=== PATIENT | male | born 1955 | race Caucasian/White ===

== ENCOUNTER 2019-07-10 16:35 | Outpatient (CLI) | payer OTHER, SELFPAY ==
--- NOTE | 2019-07-10 | USCV_ITS ---
Micah Parminder Age: 63 Gender: M : 1955 Exam Date: 07/10/2019 17:03 Ordering Phys: Nikolay Briggs DO Technologist: Exam Location[place] [facility] [place]: Right leg pain RIGHT LEFT Brachial mmHg Brachial 137.00 mmHg Pressure (mmHg) Waveform Pressure (mmHg) Waveform 157.00 Pre-Exercise Toe Pressure 1.15 Pre-Exercise Toe/Brachial Index FINDINGS Supernormal resting ABIs bilaterally . possible occlusion of the dorsalis pedis arteries bilaterally Normal resting TBI on the right side No flow was detected in the left first digit CONCLUSIONS Possible occlusion of the dorsalis pedis arteries bilaterally Possible occlusion of the digital artery to the left big toe. Possibly no significant obstructive disease in the popliteal or peroneal trunk arteries bilaterally Dr Cassandra An MD [facility] (Electronically Signed) Final Date: 10 July 2019 20:36 S
== END 2019-07-10 16:36 | disposition home or self-care (01) ==
PROVIDERS: Family Provider Emergency Medicine Emergency Medical Services; PCP Emergency Medicine Emergency Medical Services; Visit Provider Emergency Medicine Emergency Medical Services
DX: M79.604 Pain in right leg (principal)
CPT/HCPCS: 93922

== ENCOUNTER 2019-09-01 00:40 | Emergency (ER) | payer OTHER, SELFPAY ==
[2019-09-01 00:43] VITALS: BP 186/83; PULSE 69; RESP 16; TEMP 37.1; O2SAT 96; BMI 27.4
--- NOTE | 2019-09-01 00:44 | PC.NURSE ---
ems states they were called to patient residence for rib pain and while on scene patient started hallucinating seeing dogs. Patient has bilateral black eyes, bruising to chin, neck, left hand, and bruising to the nose. Patient had a fall last night 08/30/2019. Patient states he was walking outside from his car and fell down.
--- NOTE | 2019-09-01 00:59 | PC.NURSE ---
Patient states that he had snakes and dogs in his house. Patient states to nurse when asked if he wanted to harm anyone my daughter and sister because they wouldn't get off my back . Patient states in the ER he no longer wants to hurt them because they are not here in the ER with the patient.
[2019-09-01 01:01] VITALS: BP 175/71; PULSE 66; RESP 14; O2SAT 97
--- NOTE | 2019-09-01 01:14 | XRR_ITS ---
PROCEDURE INFORMATION: Exam: XR Chest, 1 View Exam date and time: 09/01/2019 1:39 AM Age: 63 years old Clinical indication: Injury or trauma; Fall; Initial encounter; Blunt trauma (contusions or hematomas); Prior surgery; Surgery date: 6+ months; Surgery type: Stents, aortic arch bypass, ; patient HX: HX copd TECHNIQUE: Imaging protocol: XR of the chest Views: 1 view. COMPARISON: CR Chest 1 [place] [id number] 07/15/2017 12:01 PM FINDINGS: Lungs: No CHF/pulmonary edema. Visible lungs appear essentially clear. Pleural space: No visible pneumothorax. No definite pleural fluid. Heart/Mediastinum: Heart size is within normal limits. Bones/joints: Prior median sternotomy. Several subtle left lateral rib deformities, not significantly changed, apparently representing old/healed fractures. XR/XR chest 1V portable [id number] IMPRESSION: 1. No CHF or pneumonia. 2. Other findings discussed above.
--- NOTE | 2019-09-01 01:14 | CTR_ITS ---
PROCEDURE INFORMATION: Exam: CT Maxillofacial Without Contrast Exam date and time: 09/01/2019 1:17 AM Age: 63 years old Clinical indication: Injury or trauma; Fall; Initial encounter; Blunt trauma (contusions or hematomas); Nose and orbit/periorbital and jaw; Bilateral TECHNIQUE: Imaging protocol: Computed tomography images of the face without contrast. Total DLP: 763.33 mGy-cm Radiation optimization: All CT scans at this facility use at least one of these dose optimization techniques: automated exposure control; mA and/or kV adjustment per patient size (includes targeted exams where dose is matched to clinical indication); or iterative reconstruction. COMPARISON: No relevant prior studies available. FINDINGS: Orbits: Orbital contents appear intact/unremarkable. Bones/joints: No definite evidence of acute facial bone/orbital fracture. No evidence for mandibular fracture. The temporomandibular joints appear in satisfactory position at this time. Sinuses: Included paranasal sinuses appear essentially clear. Soft tissues: Rounded 2 cm density seen in the soft tissues, just inferior to the symphysis of the mandible. Etiology and significance uncertain. Soft tissue hematoma is possible given the history of trauma, other nodule or neoplasm not excluded. Please correlate clinically. CT/CT facial bones wo con* [id number] IMPRESSION: 1. No definite acute facial bone/mandibular fracture by CT. 2. Rounded 2 cm density seen in the soft tissues, just inferior to the symphysis of the mandible. See above discussion. 3. Other findings discussed above. Radiation Dose CTDIVOL = (mGy): DLP = 763.33 (mGy-cm)
--- NOTE | 2019-09-01 01:14 | CTR_ITS ---
PROCEDURE INFORMATION: Exam: CT Cervical Spine Without Contrast Exam date and time: 09/01/2019 1:17 AM Age: 63 years old Clinical indication: Injury or trauma; Fall; Initial encounter; Blunt trauma TECHNIQUE: Imaging protocol: Computed tomography images of the cervical spine without contrast. Total DLP: 671.06 mGy-cm Radiation optimization: All CT scans at this facility use at least one of these dose optimization techniques: automated exposure control; mA and/or kV adjustment per patient size (includes targeted exams where dose is matched to clinical indication); or iterative reconstruction. COMPARISON: No relevant prior studies available. FINDINGS: Vertebrae: On axial CT images, no definite acute fracture is visible. Sagittal and coronal reconstructions show no fracture or subluxation. Mild to moderate degenerative disc changes and facet joint arthritis at multiple levels. Discs/Spinal canal/Neural foramina: Suspect moderate bulging/protruding discs from C3-C4, through C6-C7. MRI could be more specific/sensitive if clinically indicated. Lungs: No significant acute abnormality in the upper lungs. CT/CT cervical spin wo con* [id number] IMPRESSION: 1. No definite acute fracture or subluxation by CT. 2. Other findings discussed above. Radiation Dose CTDIVOL = (mGy): DLP = 671.06 (mGy-cm)
--- NOTE | 2019-09-01 01:14 | CTR_ITS ---
PROCEDURE INFORMATION: Exam: CT Head Without Contrast Exam date and time: 09/01/2019 1:17 AM Age: 63 years old Clinical indication: Injury or trauma; Fall; Initial encounter; Blunt trauma (contusions or hematomas); Without loss of consciousness TECHNIQUE: Imaging protocol: Computed tomography of the head without contrast. Total DLP: 861.77 mGy-cm Radiation optimization: All CT scans at this facility use at least one of these dose optimization techniques: automated exposure control; mA and/or kV adjustment per patient size (includes targeted exams where dose is matched to clinical indication); or iterative reconstruction. COMPARISON: CT head wo con* [id number] 07/15/2017 12:51 PM FINDINGS: Brain: Hypoattenuation seen in the deep white matter of the left cerebral hemisphere compatible with deep white matter microvascular disease. There is mild diffuse cerebral atrophy. There is a broad area of hypoattenuation and encephalomalacia seen within the right frontal, parietal and temporal lobes compatible with a old infarction. Superimposed over the chronic findings, there is irregular hyperdense material compatible with acute intraparenchymal hemorrhage. Ventricles: Normal. No ventriculomegaly. Bones/joints: Unremarkable. No acute fracture. Sinuses: There is mild mucosal thickening seen within the ethmoidal and sphenoidal sinuses bilaterally. Mastoid air cells: Visualized mastoid air cells are well aerated. Soft tissues: Unremarkable. CT/CT head wo con* [id number] IMPRESSION: There is an acute intraparenchymal hemorrhage seen within the broad area of encephalomalacia of the right frontal, parietal and temporal lobe. Radiation Dose CTDIVOL = (mGy): DLP = 861.77 (mGy-cm)
--- NOTE | 2019-09-01 01:16 | ECG_ITS ---
Measurements Intervals [place] Rate: 72 P: 52 ND: 186 QRS: -14 QRSD: 106 T: 146 QT: 427 QTc: 470 SINUS RHYTHM POSSIBLE LEFT ATRIAL ENLARGEMENT PROBABLE LATERAL MYOCARDIAL INFARCTION , OF INDETERMINATE AGE MODERATE T-WAVE ABNORMALITY, CONSIDER ANTERIOR ISCHEMIA Compared to ECG 07/15/2017 19:16:12 T-wave abnormality now present Myocardial infarct finding still present Possible ischemia still present Electronically Signed On 09-01-2019 14:00:17 CDT by Disha Powers M.D. [id number]
[2019-09-01 01:41] LABS: Basophils % 0.2 %; Eosinophils % 0.2 %; Hematocrit 45.6 % (42.0-52.0); Hemoglobin 15.5 g/dL (11.7-16.6); Lymphocytes % 10.9 %; Mean Corpuscular Hemoglobin 32.8 pg (28.0-34.0); Mean Corpuscular Volume 96.6 fL (80-94); Mean Platelet Volume 9.9 fL (7.4-10.4); Monocytes # 0.7 10^3/uL (0.2-0.9); Monocytes % 7.7 %; Neutrophils # 7.4 10^3/uL (1.8-7.7); Neutrophils % 80.5 %; Nucleated Red Blood Cells % 0 %; Platelet Count 162 10^3/cmm (130-400); Red Blood Count 4.72 10^6/uL (4.1-5.3); Red Cell Distribution Width 13.1 % (12.1-15.1); White Blood Count 9.2 10^3/uL (4.0-10.0)
--- NOTE | 2019-09-01 01:56 | W.ED.AMS ---
HPI - Altered Mental Status General: Chief Complaint: Altered Mental Status Stated Complaint: fall/hallucinations Time Seen by Provider: 09/01/19 00:53 History of Present Illness: HPI narrative: Mr. August is a 63-year-old gentleman who evidently fell, striking his face on asphalt either late night or early Tuesday morning. An ambulance had been called earlier, but the patient refused to go to the hospital. Earlier this evening, the patient began to have some visual hallucinations, seeing snakes and puppies in his home. This was concerning, so EMS was called again. Currently he reports no headache, no other symptoms. He was agitated at his family earlier, but his agitation has improved. He has not had active hallucinations here. MD complaint: altered mental status and confusion Onset (ago): day(s) Timing confirmed by: family member Severity: moderate Context: trauma Associated symptoms: Reports auditory hallucinations and visual hallucinations; Deny homicidal ideation or suicidal ideation Review of Systems Const: Denies: fever or chills Eyes: Denies: change in vision or blurry vision ENMT: Reports: facial/sinus pain; Denies: painful swallowing, swelling of lips/tongue, bleeding gums, dental pain, Change in hearing, nose bleeds or post nasal drip Card: Denies: chest pain, palpitations, irregular heart rhythm or edema Resp: Denies: shortness of breath, productive cough, non-productive cough or wheezing GI: Denies: abdominal pain, nausea or vomiting : Denies: difficulty urinating, painful urination or blood in urine Musc: Denies: neck pain, back pain, redness or joint warmth Skin/Breast: Denies: rash, itching or redness Neuro: Reports: confusion; Denies: headache, dizziness, vertigo or seizure-like activity Psych: Reports: visual hallucinations and auditory hallucinations; Denies: suicidal ideation or homicidal ideation PFS ED PFSH: Social History Smoking and tobacco status: current some day smoker Physical Exam Const: GENERAL APPEARANCE: well developed ORIENTATION/CONSCIOUSNESS: Yes oriented to person, Yes oriented to place and Yes oriented to time HENMT: COMMON NORMALS: normocephalic, external ears normal and external nose normal HEAD & SCALP: normocephalic FACE & SINUS: other (There is ecchymosis of the chin.) NOSE: external nose normal and no nasal discharge EXTERNAL EAR: Yes external ears normal MOUTH: tongue normal Eye: COMMON NORMALS: PERRL, EOMs intact bilaterally and conjunctivae normal CONJUNCTIVA: Yes conjunctivae normal PUPIL: Yes PERRL OTHER: Bilateral periorbital ecchymosis is noted. There is mild swelling. Neck/C-Spine: GENERAL: No tracheal deviation CERVICAL SPINE: Yes normal cervical lordosis and No cervical spine tenderness Chest: COMMONS NORMALS: inspection of chest normal CHEST: No tenderness Resp: COMMON NORMALS: clear to auscultation bilaterally EFFORT & INSPECTION: No tachypneic, No respiratory distress, No retractions, No uses accessory muscles and No tracheal deviation AUSCULTATION: clear to auscultation bilaterally, no rhonchi, no wheezes and lung sounds not diminished Cardio: COMMON NORMALS: regular rate and regular rhythm RATE: regular rate RHYTHM: regular rhythm HEART SOUNDS: no murmurs PERIPHERAL PULSES: radial pulses present GI: INSPECTION: No abdominal distension AUSCULTATION: No hyperactive bowel sounds and No hypoactive bowel sounds PALPATION: No guarding and No rigid PERCUSSION: no dullness to percussion and no tympanic to percussion : COMMON NORMALS: Yes no CVA tenderness BLADDER/KIDNEY EXAM: Yes no CVA tenderness Back/Pelvis: COMMON NORMALS: no CVA tenderness Neuro: SENSORIUM/ORIENTATION: Yes oriented to person, Yes oriented to place and Yes oriented to time SPEECH: speech normal SENSORY EXAM: Yes extremities (Decreased sensation, which is chronic to the left upper extremity) MOTOR EXAM: other (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 He is awake and talking. He is alert and oriented. He was having some visual and auditory hallucinations at home, which are new symptoms for him. These seem to have improved a bit. He has periorbital ecchymosis, as well as ecchymosis to the chin. He is on Plavix, but no anticoagulants. His head CT shows intraparenchymal hemorrhage seen within the area of encephalomalacia from previous stroke in the right MCA distribution. No neurosurgery available here. We spoke with ER/trauma at [facility] in [place], and they are willing to take in transfer. He will go by ground. Lab Data: Labs: Lab Results 09/01/19 09/01/19 Range/Units 01:35 01:35 WBC 9.2 (4.0-10.0) 10^3/ uL RBC 4.72 (4.1-5.3) 10^6/u L Hgb 15.5 (11.7-16.6) g/dL Hct 45.6 (42.0-52.0) % MCV 96.6 H (80-94) fL MCH 32.8 (28.0-34.0) pg MCHC 34.0 (30.0-36.0) g/dL RDW 13.1 (12.1-15.1) % Plt Count 162 (130-400) 10^3/c mm MPV 9.9 (7.4-10.4) fL Neut % (Auto) 80.5 % Lymph % (Auto) 10.9 % [place] % (Auto) 7.7 % Eos % (Auto) 0.2 % Baso % (Auto) 0.2 % Neut # (Auto) 7.4 (1.8-7.7) 10^3/u L Lymph # (Auto) 1.0 (0.8-4.8) 10^3/u L [place] # (Auto) 0.7 (0.2-0.9) 10^3/u L Eos # (Auto) 0.0 (0.0-0.8) 10^3/u L Baso # (Auto) 0.0 (0.0-0.1) 10^3/u L Nucleated RBC % (a uto) 0 % Nucleated RBCs # 0.0 /100WBC Sodium 134 L (136-145) mmol/L Potassium 4.2 (3.5-5.1) mmol/L Chloride 97 L (98-107) mmol/L Carbon Dioxide 20 L (22-29) mmol/L Anion Gap 21.2 H (5-19) BUN 13 (8-23) mg/dL Creatinine 1.0 (0.7-1.2) mg/dL GFR Calculation 75.2 L (90-130) mL/min Glucose 114 (65-115) mg/dL Calculated Osmolal ity 275 L (285-295) mOsm/k g Calcium 9.9 (8.5-10.5) mg/dL Magnesium 2.0 (1.7-2.3) mg/dL Total Bilirubin 1.8 H (0.15-1.2) mg/dL AST 26 (0-40) U/L ALT 9 (0-41) U/L Alkaline Phosphata se 129 (40-130) IU/L Creatine Kinase 1136 H* (39-308) U/L Total Protein 7.8 (6.6-8.7) g/dL Albumin 4.2 (3.5-5.2) g/dL Globulin 3.6 (1.3-4.6) g/dL Salicylates < 0.3 L (3-10) mg/dL Acetaminophen < 5.0 L (10-30) ug/mL Ethyl Alcohol < 10 (0-10) mg/dL Discharge Plan Discharge Patient Disposition: Xfer Other Clinical Impression: Intracranial hemorrhage Condition: Stable Referrals: Nikolay Briggs DO [Primary Care Provider] - Coding Level of Care Code ED Cluster Bore Operator for Chg Fwd Exam Comprehensive
[2019-09-01 01:59] LABS: Alanine Aminotransferase 9 U/L (0-41); Albumin Level 4.2 g/dL (3.5-5.2); Alkaline Phosphatase 129 IU/L (40-130); Anion Gap 21.2 (5-19); Blood Urea Nitrogen 13 mg/dL (8-23); Calcium 9.9 mg/dL (8.5-10.5); Carbon Dioxide 20 mmol/L (22-29); Chloride 97 mmol/L (98-107); Globulin 3.6 g/dL (1.3-4.6); Glomerular Filtration Rate 75.2 mL/min (90-130); Glucose 114 mg/dL (65-115); Osmolality Calculated 275 mOsm/kg (285-295); Potassium 4.2 mmol/L (3.5-5.1); Sodium 134 mmol/L (136-145); Total Bilirubin 1.8 mg/dL (0.15-1.2); Total Protein 7.8 g/dL (6.6-8.7)
[2019-09-01 02:01] VITALS: BP 182/80; PULSE 64; RESP 16; O2SAT 94
[2019-09-01] MEDS: sodium chloride 0.9% 1,000 ML 999 ML IV (02:24)
[2019-09-01] MEDS: ondansetron 2 mg/ML SDV 2 mL 4 MG IVP (02:24)
[2019-09-01 02:26] LABS: Acetaminophen < 5.0 ug/mL (10-30); Alcohol Level < 10 mg/dL (0-10); Aspartate Amino Transferase 26 U/L (0-40); Salicylate < 0.3 mg/dL (3-10)
[2019-09-01 02:27] LABS: Creatine Phosphokinase 1136 U/L (39-308)
[2019-09-01 02:31] VITALS: BP 178/79; PULSE 68; RESP 14; O2SAT 96
[2019-09-01 03:01] VITALS: BP 169/80; PULSE 76; RESP 16; O2SAT 96
[2019-09-01 04:25] VITALS: BP 168/87; PULSE 64; RESP 16; O2SAT 94
== END 2019-09-01 04:28 | disposition other institution (70) ==
PROVIDERS: Emergency Provider Emergency Medicine; Family Provider Emergency Medicine Emergency Medical Services; PCP Emergency Medicine Emergency Medical Services
DX: S06.360A Traumatic hemorrhage of cerebrum, unspecified, without loss of consciousness, initial encounter (principal); W18.30XA Fall on same level, unspecified, initial encounter; F17.210 Nicotine dependence, cigarettes, uncomplicated; R44.0 Auditory hallucinations; R44.1 Visual hallucinations; Z79.02 Long term (current) use of antithrombotics/antiplatelets
CPT/HCPCS: 12345; 70450; 70486; 71045; 72125; 80053; 80307; 82550; 83735; 85025; 93005; 96360; 96361; 96374; 99283; 99285; J2405; J7030

== ENCOUNTER 2019-12-12 08:17 | Outpatient (CLI) | payer OTHER, SELFPAY ==
--- NOTE | 2019-12-12 08:00 | USCV_ITS ---
Parminder Obrien Age: 64 Gender: M : 1955 Exam Date: 12/12/2019 08:15 Ordering Phys: Saul Bermudez MD (Andy) ([email or web address] [place]) Technologist: Chelsey Pulido [place] [facility] [place] ARTERIOSCLEROSIS OF BOTH CAROTIDS Risk Factors: PREVIOUS CVA Previous Vascular Surgery: AO ARCH Right Brachial BP: / Left Brachial BP: / Right Left Velocity (cm/s) Spectral Plaque Velocity (cm/s) Spectral Plaque Syst/Diast Broadening Syst/Diast Broadening 110.30/15.40 Prox CCA 138.90/ 20.90 116.90/13.20 Mid CCA 105.80/ 18.70 118.00/13.20 Hetro Distal CCA 118.00/ 18.70 Hetro 113.60/16.50 Hetro Prox ICA 150.30/ 41.30 Hetro 120.20/37.50 Mid ICA 301.40/ 86.90 Hetro 106.90/32.00 Distal ICA 239.00/ 86.90 99.20 Hetro ECA 165.50 Hetro 1.03 ICA/CCA 2.85 Antegrade Vertebral Retrograde 92.60/ 14.30 cm/s / cm/s Bi Subclavian Sutter 99.20 90.00 CONCLUSIONS Right ICA stenosis <50%. Moderate atheromatous plaque right carotid bulb/ICA. Left ICA stenosis 50-69% proximally. Moderate atheromatous plaque left carotid bulb/ICA. Normal antegrade Doppler flow noted in the right vertebral artery. Retrograde Left vertebral artery with monophasic subclavian waveform consistent with Subclavian Steal and proximal subclavian stenosis Darío Tubbs MD (Electronically Signed) Final Date: 12 December 2019 15:49 S
--- NOTE | 2019-12-12 09:00 | CT_ITS ---
WS: [id number] CTA ABDOMINAL AORTA WITH RUNOFF TECHNIQUE: Contrast enhanced CTA of the abdominal aorta with bilateral lower extremity runoff. Multip lanar reformatted images were obtained. MIP reformats were also reviewed. CLINICAL INFORMATION: pvd COMPARISON: None. DLP: 1283.[address] scans at [facility] use at least one of these dose optimization techniques: automat ed exposure control; mA and/or kV adjustment per patient size (includes targeted exams where dose is matched to clinical indication); or iterative reconstruction. FINDINGS: Moderate atheromatous disease abdominal aorta with peripheral mural thrombus and peripheral calcification. Aortic graft in the mid and distal abdominal aorta with origin at the level of renal arteries. Moderate aortic stenosis at the level of the renal artery origins just above the graft magnolia uring approximately 40%. Celiac is patent. 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 Proximal renal arteries are patent. No significant abdominal aortic aneurysm. Bibasilar atelectasis. Normal portal veins and splenic vein. Fatty atrophy of the pancreas. Adrenal g lands are normal. Normal renal parenchymal enhancement. Mild bilateral renal cortical atrophy. No hyd ronephrosis. Small esophageal hiatal hernia. Calcified prostate slightly enlarged. Mild sigmoid const ipation. 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 Near complete loss of the joint space. RIGHT: Right common iliac artery is patent with bilateral iliac bypass grafts. External iliac arterie s are patent. 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 Right common femoral artery is patent . Femoral artery to popliteal bypass graft which is patent with no significant stenosis. Bypass graft is patent to the trifurcation. Stenosis of the tibioperoneal trunk origin which remains patent. Danisha nant two-vessel runoff to the ankle LEFT: Left common iliac and external iliac arteries are patent. Common femoral graft is patent to the groin. Superficial femoral artery is occluded at the origin. Deep femoral artery is patent. Superfic ial femoral artery remains occluded to the adductor hiatus. Small amount of popliteal reconstitution tiny but patent popliteal artery. Moderate stenosis of the trifurcation. Dominant two-vessel runoff t o the ankle. Poor runoff in the peroneal artery distally. CT/CT angio abd aorta runof [id number] IMPRESSION: 1. Moderate atheromatous disease abdominal aorta with approximately 40% stenos is at the renal artery origins just above the origin of the aortic graft. 2. Mid and distal abdominal aortic graft, no evidence of aneurysm. 3. Common iliac and external iliac graft is patent bilaterally. 4. RIGHT femoropopliteal bypass graft is patent without significant stenosis. Dominant two-vessel runoff to the right ankle. 5. LEFT Superficial femoral artery is occluded at the origin. Reconstitution o f the popliteal artery with a tiny amount of residual flow. Dominant two-vessel runoff to the ankle. Poor runoff in the peroneal artery distally. 6. Advanced arthritis both hips with joint space narrowing and extensive subch ondral cystic change with avascular necrosis right greater than left.
[2019-12-12 09:53] LABS: Blood Urea Nitrogen 11 mg/dL (8-23); Glomerular Filtration Rate 67.2 mL/min (90-130)
[2019-12-12] MEDS: iohexol 350 mg/mL 100 mL Btl IV (10:20)
== END 2019-12-12 08:18 | disposition home or self-care (01) ==
PROVIDERS: Family Provider Emergency Medicine Emergency Medical Services; PCP Emergency Medicine Emergency Medical Services; Visit Provider Thoracic Surgery (Cardiothoracic Vascular Surgery)
DX: I73.9 Peripheral vascular disease, unspecified (principal); I65.23 Occlusion and stenosis of bilateral carotid arteries; I70.0 Atherosclerosis of aorta; I70.8 Atherosclerosis of other arteries; M13.852 Other specified arthritis, left hip; M13.851 Other specified arthritis, right hip
CPT/HCPCS: 36415; 75635; 82565; 84520; 93880

== ENCOUNTER 2020-01-07 07:29 | Outpatient (CLI) | payer OTHER, SELFPAY ==
--- NOTE | 2020-01-07 10:03 | CT_ITS ---
WS: [id number] CTA NECK TECHNIQUE: Contrast enhanced CTA of the neck with coronal and sagittal reformatted images and maximum intensity projection (MIP) images. NASCET criteria utilized. CLINICAL INFORMATION: CAROTID STENOSIS COMPARISON: Ultrasound carotid December 12, 2019 DLP: 1978.[address] scans at [facility] use at least one of these dose optimization techniques: automat ed exposure control; mA and/or kV adjustment per patient size (includes targeted exams where dose is matched to clinical indication); or iterative reconstruction. FINDINGS: RIGHT: Right ICA stenosis 52%. Right common carotid artery is patent. Moderate calcified atheromatous disease right carotid bulb extending into the ICA. Right ICA stenosis remains patent to the skull ba se with slightly diminished caliber. LEFT: Left ICA stenosis 82%. Left common carotid artery is patent. Moderate calcified atheromatous di sease left carotid bulb extending into the ICA. Left ICA is patent to the skull base. Mastoid air cells are well aerated. Paranasal sinuses are well aerated. Chronic emphysematous changes in the lung apices. Moderate spondylitic changes cervical spine. Moderate calcified atheromatous disease aortic arch. Prior sternotomy. Left subclavian artery is occl uded at the origin with retrograde filling via the left vertebral artery. Left subclavian artery is o therwise patent. Both vertebral arteries are patent. Basilar artery is patent. 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 Both ICAs are patent at the skull base. Dense calcified atheromatous disease right petrous and cavern ous carotid arteries.Moderate to severe calcified atheromatous disease involving the right petrous an d cavernous intracranial ICA with moderate to severe segmental stenosis. CT/CT angio neck [id number] IMPRESSION: 1. Right ICA stenosis 52%. 2. Left ICA stenosis 82% with diminished caliber to the skull base. 3. Left subclavian artery is occluded at the origin with retrograde filling vi a the left vertebral artery consistent with subclavian steal. Both vertebral ar teries are patent. 4. Moderate to severe calcified atheromatous disease involving the right johnna us and cavernous intracranial ICA with moderate to severe segmental stenosis.
[2020-01-07] MEDS: iohexol 350 mg/mL 100 mL Btl IV (10:29)
== END 2020-01-07 07:30 | disposition home or self-care (01) ==
LOC: RADWPI 07:56 → RAD 10:02
PROVIDERS: PCP Emergency Medicine Emergency Medical Services; Visit Provider Thoracic Surgery (Cardiothoracic Vascular Surgery)
DX: I65.23 Occlusion and stenosis of bilateral carotid arteries; I70.8 Atherosclerosis of other arteries; I67.2 Cerebral atherosclerosis
CPT/HCPCS: 70498

== ENCOUNTER 2020-01-09 14:15 | Outpatient (CLI) | payer OTHER, SELFPAY | END 2020-01-09 14:16 | disposition home or self-care (01) | LOC: SPT 01-10 09:06 | PROVIDERS: PCP Emergency Medicine Emergency Medical Services; Visit Provider Podiatrist Foot & Ankle Surgery | DX: Z46.89 Encounter for fitting and adjustment of other specified devices (principal); S92.301D Fracture of unspecified metatarsal bone(s), right foot, subsequent encounter for fracture with routine healing; S82.401D Unspecified fracture of shaft of right fibula, subsequent encounter for closed fracture with routine healing; X58.XXXD Exposure to other specified factors, subsequent encounter | CPT/HCPCS: 97760; L4361 ==

== ENCOUNTER → 2020-01-09 16:09 | Outpatient (BNVA) | payer OTHER, SELFPAY | PROVIDERS: PCP Emergency Medicine Emergency Medical Services; Referring Provider Emergency Medicine Emergency Medical Services; Visit Provider Podiatrist Foot & Ankle Surgery | DX: S82.401A Unspecified fracture of shaft of right fibula, initial encounter for closed fracture (principal); S92.301A Fracture of unspecified metatarsal bone(s), right foot, initial encounter for closed fracture; M25.571 Pain in right ankle and joints of right foot; M89.8X6 Other specified disorders of bone, lower leg; Z86.73 Personal history of transient ischemic attack (TIA), and cerebral infarction without residual deficits; X58.XXXA Exposure to other specified factors, initial encounter | CPT/HCPCS: 73590; 73610; 73630 ==

== ENCOUNTER → 2020-01-24 15:11 | Outpatient (BNVA) | payer OTHER, SELFPAY | PROVIDERS: PCP Emergency Medicine Emergency Medical Services; Visit Provider Podiatrist Foot & Ankle Surgery | DX: S82.401A Unspecified fracture of shaft of right fibula, initial encounter for closed fracture (principal); S92.301A Fracture of unspecified metatarsal bone(s), right foot, initial encounter for closed fracture; M25.571 Pain in right ankle and joints of right foot; M89.8X6 Other specified disorders of bone, lower leg; Z86.73 Personal history of transient ischemic attack (TIA), and cerebral infarction without residual deficits; X58.XXXA Exposure to other specified factors, initial encounter | CPT/HCPCS: 73610 ==

== ENCOUNTER → 2020-02-21 15:05 | Outpatient (BNVA) | payer OTHER, SELFPAY | PROVIDERS: PCP Emergency Medicine Emergency Medical Services; Visit Provider Podiatrist Foot & Ankle Surgery | DX: M25.571 Pain in right ankle and joints of right foot (principal); M79.671 Pain in right foot; M89.8X6 Other specified disorders of bone, lower leg; S82.401A Unspecified fracture of shaft of right fibula, initial encounter for closed fracture; S92.301A Fracture of unspecified metatarsal bone(s), right foot, initial encounter for closed fracture; Z86.73 Personal history of transient ischemic attack (TIA), and cerebral infarction without residual deficits | CPT/HCPCS: 73610 ==

== ENCOUNTER → 2020-02-22 12:46 | Outpatient (BNVA) | payer OTHER, SELFPAY | PROVIDERS: PCP Emergency Medicine Emergency Medical Services; Visit Provider Thoracic Surgery (Cardiothoracic Vascular Surgery) | DX: Z11.59 Encounter for screening for other viral diseases (principal) | CPT/HCPCS: 87635 ==

== ENCOUNTER 2020-02-25 10:15 | Inpatient (IN) | payer OTHER, MEDICARE, SELFPAY ==
[2020-02-22 09:15] VITALS: BMI 24.9
--- NOTE | 2020-02-22 09:23 | ECG_ITS ---
[facility] Test Date: 2020-02-22 Pat Name: Parminder Obrien Department: Room: Gender: Male Vp Lab: : 1955 Requested By: Saul Bermudez Order Number: [id number] Mcdaniel MD: Scooby Barkley M.D. Measurements Intervals [place] Rate: 54 P: 46 VA: 205 QRS: -19 QRSD: 103 T: 172 QT: 465 QTc: 442 Interpretive Statements SINUS BRADYCARDIA POSSIBLE LEFT ATRIAL ENLARGEMENT [-0.1mV P WAVE IN V1/V2] LEFT VENTRICULAR HYPERTROPHY AND ST-T CHANGE [VOLTAGE CRITERIA PLUS ST/T ABNORMALITY] Compared to ECG 09/01/2019 02:23:06 Left ventricular hypertrophy now present ST (T wave) deviation now present Sinus rhythm no longer present Myocardial infarct finding no longer present T-wave abnormality no longer present Possible ischemia no longer present Electronically Signed On 02-22-2020 19:37:26 CDT by Scooby Barkley M.D. [id number]
[2020-02-22 10:11] LABS: Basophils # 0.1 10^3/uL (0.0-0.1); Basophils % 0.9 %; Eosinophils # 0.2 10^3/uL (0.0-0.8); Hematocrit 41.7 % (42.0-52.0); Hemoglobin 13.9 g/dL (11.7-16.6); Lymphocytes # 1.8 10^3/uL (0.8-4.8); Lymphocytes % 22.4 %; Mean Corpuscular HGB Conc 33.3 g/dL (30.0-36.0); Mean Corpuscular Hemoglobin 31.6 pg (28.0-34.0); Mean Corpuscular Volume 94.8 fL (80-94); Mean Platelet Volume 9.9 fL (7.4-10.4); Monocytes # 0.8 10^3/uL (0.2-0.9); Monocytes % 9.3 %; Nucleated Red Blood Cells % 0 %; Platelet Count 273 10^3/cmm (130-400); Red Cell Distribution Width 13.1 % (12.1-15.1); White Blood Count 8.1 10^3/uL (4.0-10.0)
[2020-02-22 10:31] LABS: INR 0.98 (0.8-1.2)
[2020-02-22 10:36] LABS: Anion Gap 12.5 (5-19); Blood Urea Nitrogen 10 mg/dL (8-23); Calcium 9.2 mg/dL (8.5-10.5); Carbon Dioxide 26 mmol/L (22-29); Chloride 102 mmol/L (98-107); Glomerular Filtration Rate 84.7 mL/min (90-130); Glucose 116 mg/dL (65-115); Osmolality Calculated 284 mOsm/kg (285-295); Potassium 3.5 mmol/L (3.5-5.1); Sodium 137 mmol/L (136-145)
--- NOTE | 2020-02-22 12:18 | ANES.PREANE2 ---
Pre-Anesthetic Assessment Pre-Anesthetic Assessment: Height/Weight: Height 1.63 m Weight 65.771 kg Proposed Procedure: Operation Date: 02/25/20 07:00 Proposed Procedures p Left Carotid Endarterectomy(Left) - Saul Bermudez MD Was Beta Ana taken within 24 hours: Yes (Discussed taking Pre-op) Social: Social History: Tobacco and No alcohol Exam: Pre-Anes Outpt Exam: alert, oriented x 3, clear to auscultation bilaterally and regular rate & rhythm Airway: Submandibular: WNL Cervical ROM: WNL MP: 2 Dentition: Chipped and Loose Pulmonary: Pulmonary: COPD and Cough CV/HEM: CV/HEM: CAD, HTN and PVD Comments: Coronary Stent x2; no active cardiac complaints : : None reported Hepatic: Hepatic: None reported GI: GI: None reported Metabolic: Metabolic: DM Musc/skel: Musc/skel: None reported Neuropsych: Neuropsych: CVA (Left Upper Extremity Hemiplegia s/p Aortic Arch Reconstruction) Anesthetic Plan: ASA status: 4 Anesthesia: General Other: Discussed Pre-Induction A-line Risk of > 500 ml blood loss (7ml/kg in children): Yes, adequate IV access and fluids planned PFSH Anesthesia PFSH: Medical History Bilateral carotid artery disease CVA (cerebral vascular accident) 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 Hypertension Peripheral Vascular Disease Surgical History History of heart artery stent Hx of CABG S/P femoral-femoral bypass surgery Family History Denies family history of CAD (coronary artery disease) Social History Smoking and tobacco status: former smoker Alcohol intake: former Data Anesthesia CBC & Chem 7: 02/22/20 09:31 02/22/20 09:31 Other Labs: Laboratory Results - last 48 hr 02/22/20 02/22/20 02/22/20 09:31 09:31 09:31 WBC 8.1 RBC 4.40 Hgb 13.9 Hct 41.7 L MCV 94.8 H MCH 31.6 MCHC 33.3 RDW 13.1 Plt Count 273 MPV 9.9 Neut % (Auto) 65.0 Lymph % (Auto) 22.4 Mchenry % (Auto) 9.3 Eos % (Auto) 2.0 Baso % (Auto) 0.9 Neut # (Auto) 5.30 Lymph # (Auto) 1.8 Mchenry # (Auto) 0.8 Eos # (Auto) 0.2 Baso # (Auto) 0.1 Nucleated RBC % (auto) 0 Nucleated RBCs # 0.0 PT 13.30 INR 0.98 Sodium 137 Potassium 3.5 Chloride 102 Carbon Dioxide 26 Anion Gap 12.5 BUN 10 Creatinine 0.9 GFR Calculation 84.7 L Glucose 116 H Calculated Osmolality 284 L Calcium 9.2 Blood Type Rho(D) Type Antibody Screen 02/22/20 09:56 WBC RBC Hgb Hct MCV MCH MCHC RDW Plt Count MPV Neut % (Auto) Lymph % (Auto) Mchenry % (Auto) Eos % (Auto) Baso % (Auto) Neut # (Auto) Lymph # (Auto) Mchenry # (Auto) Eos # (Auto) Baso # (Auto) Nucleated RBC % (auto) Nucleated RBCs # PT INR Sodium Potassium Chloride Carbon Dioxide Anion Gap BUN Creatinine GFR Calculation Glucose Calculated Osmolality Calcium Blood Type O Positive Rho(D) Type Positive Antibody Screen Negative Cardiac Studies: No Data to Display
[2020-02-25] VITALS (17 sets, daily range): BP systolic 85–148; BP diastolic 42–80; PULSE 51–63; RESP 10–19; TEMP 36.4–36.9; O2SAT 92–99
--- NOTE | 2020-02-25 06:00 | XR_ITS ---
WS: [id number] PORTABLE CHEST HISTORY: Preop for carotid endarterectomy/prior aortic arch surgery COMPARISON: 09/01/2019 Prior median sternotomy. Lungs are slightly hyperexpanded. No pneumonia. No pleural effusion or atelectasis. No pleural effusi on or pneumothorax. Cardiac size: Normal. Mediastinum/Aorta: Mild atherosclerosis aorta. No osseous abnormality seen. XR/XR chest 1V portable [id number] IMPRESSION: 1. Prior median sternotomy. 2. Mild atherosclerosis aorta.
--- NOTE | 2020-02-25 06:12 | PM.HP ---
Providers/Chief Complaint Primary Care Provider: Nikolay Briggs DO Chief Complaint: Left Carotid Endarterectomy History of Present Illness Parminder Obrien is a 64 year old male whom I have been following at heart care clinic originally seeing him back on October 03 for delayed healing wound to the right lower extremity with known peripheral vascular disease. He had a prior right femoropopliteal which is patent. During a recent hospitalization after a fall he was found to have a substantial parenchymal hemorrhage requiring transfer and subsequent care at outside facility. Duplex studies revealed high-grade bilateral increased velocities in his carotid arteries. This was subsequently followed up with a CTA of the neck on January 06 which revealed calculated stenosis of 52% in the right internal carotid artery and 82% in the left internal carotid artery. Because of this high-grade lesion and statistical increased risk for spontaneous CVA, consideration for repair was discussed and he wishes to proceed. His medical history is complicated for an aortic arch repair back in 1996 which resulted in a substantial neurologic event which now includes a contraction paralysis of his left upper extremity as well as bilateral lower extremity weakness, particularly on the right side. While he can walk short distances utilizing a walker, he usually is mobile in a powered wheelchair. Medical history is further complicated by a fall back in August which resulted in a parenchymal hemorrhage and subsequent rehabilitation in [place]. Is also followed by Dr. Pierce for a healed right metatarsal fracture. A complex medical history includes CVA, peripheral vascular disease, hypertension, prior history for aortic arch repair, coronary stents, as well as a past history of former tobacco and alcohol use. Review of Systems Const: Denies: fever(s), chills, change in appetite, change in weight, fatigue or night sweats Eyes: Denies: change in vision or blurry vision ENMT: Denies: odynophagia or hoarseness Card: Denies: chest pain, palpitations, irregular heart rhythm or edema Resp: Denies: dyspnea or productive cough GI: Denies: abdominal pain, nausea, vomiting, dysphagia, heartburn or change in bowel habits : Denies: difficulty urinating, dysuria, urinary frequency, urinary urgency or urinary hesitancy Musc: Denies: extremity pain or extremity swelling Skin/Breast: Denies: rash Neuro: Denies: headache(s), numbness in extremities, weakness in extremities or sensory changes Psych: Denies: anxiety, depression or change in appetite Endo: Denies: polyuria, polydipsia or cold intolerance Spenser/Lymph: Denies: easy bruising, easy bleeding, petechiae or enlarged lymph nodes Medications/Allergies Home Medications Medication Instructions Recorded Confirmed Last Taken Type aspirin 325 mg tablet 325 mg PO DAILY 10/04/19 02/25/20 02/17/20 History atenolol 50 mg tablet 50 mg PO DAILY 10/04/19 02/25/20 02/25/20 History atorvastatin 40 mg tablet 40 mg PO DAILY 10/04/19 02/25/20 02/23/20 History cholecalciferol (vitamin D3) 50 50 mcg PO DAILY 10/04/19 02/25/20 02/24/20 History mcg (2,000 unit) chewable tablet clopidogrel 75 mg tablet 75 mg PO DAILY 10/04/19 02/25/20 02/17/20 History folic acid 1 mg tablet 1 mg PO DAILY 10/04/19 02/25/20 02/24/20 History gabapentin 800 mg tablet 800 mg PO TID 10/04/19 02/25/20 02/24/20 History tramadol 50 mg tablet 50 mg PO Q6H PRN 10/04/19 02/25/20 02/24/20 History CAM Walker #1 ea 01/09/20 02/21/20 Unknown Rx Walker Platform Attachment #1 ea 01/09/20 02/21/20 Unknown Rx walker #1 each 01/09/20 02/21/20 Unknown Rx aspirin 81 mg PO DAILY 02/22/20 02/25/20 02/24/20 History amlodipine 10 mg PO DAILY 02/25/20 02/25/20 02/25/20 History Allergies Allergy/AdvReac Type Severity Reaction Status Date / Time No Known Allergies Allergy Verified 02/25/20 06:01 PFSH Acute PFSH: Medical History Bilateral carotid artery disease CVA (cerebral vascular accident) 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 Hypertension Peripheral Vascular Disease Surgical History History of heart artery stent Hx of CABG S/P femoral-femoral bypass surgery Family History Denies family history of CAD (coronary artery disease) Social History Smoking and tobacco status: former smoker Alcohol intake: former Vitals/I&O/Wt Last Vital Signs Temp 97.6 F 02/25/20 05:52 Pulse 53 L 02/25/20 05:52 Resp 18 02/25/20 05:52 BP 148/61 02/25/20 05:52 Pulse Ox 99 02/25/20 05:52 Physical Exam HENMT: COMMON NORMALS: normocephalic, atraumatic, hearing grossly normal bilaterally and external ears normal Eye: COMMON NORMALS: Equal, round and reactive pupils present, EOMs intact bilaterally, conjunctivae normal and no scleral icterus Neck/C-Spine: COMMON NORMALS: no lymphadenopathy, supple, no JVD and No carotid bruits GENERAL: Yes normal visual inspection, Yes trachea midline, No anterior neck swelling and No lymphadenopathy Chest: COMMONS NORMALS: negative for normal inspection of the chest CHEST: Yes Symmetrical chest wall rise OTHER: Well-healed extended sternotomy incision. Sternum stable to palpation. Resp: COMMON NORMALS: normal respiratory effort, No retractions, No use of accessory muscles, clear to auscultation bilaterally and percussion normal EFFORT & INSPECTION: Yes able to speak in complete sentences and Yes symmetric chest movement Cardio: COMMON NORMALS: regular rate, regular rhythm, S1 normal heart sound present and No clicks present (Cardio) RHYTHM: regular rhythm Extremity: COMMON NORMALS: negative for normal to inspection OTHER: Flexion contracture left upper extremity. He has generalized weakness in all extremities, greatest with extension of the lower extremities. Neuro: COMMON NORMALS: patient oriented x3; negative for no focal motor deficits and negative for no sensory deficits noted GAIT: No Normal gait present, Yes Staggering gait present and Yes Assistive device used MOTOR EXAM: No 5/5 motor strength present throughout and Abnormal motor strength present Psych: COMMON NORMALS: Normal thought process present, cooperative and speech normal ATTITUDE: Yes calm and Yes engaged Data : 02/22/20 09:31 02/22/20 09:31 A&P Assessment and plan (1) Bilateral carotid artery disease: Mr. Colon is a pleasant 64-year-old gentleman with a extensive and complex past medical history, mostly complicated by an aortic arch repair in 1996 which resulted in a substantial neurologic event which now includes a flexion contracture of the left upper extremity and bilateral weakness of the lower extremities, right greater than left, particularly involving the extensors. He has high-grade left internal carotid artery stenosis of 82% and 52% on the right. Recommendation for elective left carotid endarterectomy to reduce the statistical increased risk for spontaneous CVA was carefully discussed, particularly in light of his complex neurologic history. He stated understanding and did wish to proceed. Details and risks of the procedure were carefully and frankly discussed. Risks reviewed include the possibility of , stroke, heart attack, major bleeding, infection, pneumonia, organ failure, temporary or permanent hoarseness, deviation of the tongue, swallowing difficulties, failure to benefit, prolonged hospital stay, pain after the procedure, need for further procedures, inability to complete the procedure, and possible need for long-term followup. All questions were answered. Appropriate consents have been provided for review and signature. He is keenly aware that his complex medical history does bring potential risk to this operation and wishes to proceed. Status: Acute Attestations Medical Necessity Statement*: 82% left internal carotid artery stenosis Time Spent in Patient Care: Greater than 35 minutes Coding Level of Care Code Acute Aboriginal Education Teacher for [facility] Fwd Diagnoses Bilateral carotid artery disease I77.9
[2020-02-25] MEDS: sodium chloride 0.9% 1,000 ML 30 ML IV (06:23)
--- NOTE | 2020-02-25 06:49 | P.ANESUD_ITS ---
Pre-Anesthetic Update Pre-Anesthetic Assessment: Date of Surgery/Procedure: 02/25/20 Preop Kandi gnosis: Carotid Stenosis Proposed Procedure: Operation Date: 02/25/20 07:00 Proposed Procedures p Left Carotid Endarterectomy(Left) - Saul Bermudez MD Any changes to Pre-Anesthetic Assessment?: No Last Intake: Intake NPO > 8 hrs Last Liquid Date 02/24/20 Last Solid Date 02/24/20 Vitals: Temperature 97.6 F 02/25/20 05:52 Temperature Source Temporal Artery S can 02/25/20 05:52 Pulse Rate 53 L 02/25/20 05:52 Pulse Rhythm 02/25/20 06:08 Pulse Strength 1+ Faint 02/25/20 06:08 Respiratory Rate 18 02/25/20 05:52 Blood Pressure 148/61 02/25/20 05:52 Blood Pressure Becky n 90 02/25/20 05:52 Pulse Oximetry 99 02/25/20 05:52 Oxygen Delivery Me thod 02/25/20 06:08 Exam: Pre-Anes Outpt Exam: alert, oriented x 3, clear to auscultation bilaterally and regular rate & rhythm Cardiac Studies: No Data to Display
--- NOTE | 2020-02-25 07:47 | SUR.OPER ---
attempted to contact daughter and notify her of surgical start.
[2020-02-25] MEDS: heparin, porcine 1,000 unit/mL INJ 10 mL 1000 UNIT IRRIGATION (07:51)
[2020-02-25] MEDS: vancomycin 1,000 MG SDV 1000 MG IRRIGATION (07:51)
--- NOTE | 2020-02-25 08:49 | SUR.OPER ---
Attempted to contact family and notified them of surgical progress.
[2020-02-25] MEDS: lidocaine 1% INJ 20 mL SUBCUT (09:15)
--- NOTE | 2020-02-25 09:58 | SUR.OPER ---
attempted to contact family on surgical progress. no answer.
--- NOTE | 2020-02-25 10:04 | SUR.OPER ---
Addendum entered by Stephanie Arthur RN 02/25/20 10:05: Family member Lani called back and has been notified of surgical progress. Original Note: Family member Lani,
--- NOTE | 2020-02-25 10:12 | SUR.OPER ---
Sister, Isabel called and has been notified of surgical progress.
--- NOTE | 2020-02-25 11:15 | PM.PACU ---
PACU note Post-Anesthesia Exam: awake and vital signs stable Disposition: admitted
--- NOTE | 2020-02-25 11:29 | PC.NURSE ---
1055-- RECEIVED FROM OR PER BED, ALERT/DROWSY, O2 6L PER SIMPLE MASK, ABLE TO MOVE BILAT FEET, EXTENSIVE MEDICAL HISTORY. WILL CONTINUE TO MONITOR.
--- NOTE | 2020-02-25 11:30 | P.OP_ITS ---
Operative Report Date of procedure: February 25, 2020 Pre-op Diagnosis: Left carotid Stenosis Post-op diagnosis: same Procedure Done: Left carotid endarterectomy with patch angioplasty Specimens removed/disposition: Left carotid artery plaque Surgeon: Saul Bermudez Anesthesia: General Estimated blood loss (mL): 125 Complications: None: Neurologically at baseline postoperatively Condition: stable Disposition: ICU Brief History: 64-year-old gentleman with a baseline neurologic deficit of flexion contracture of the left upper extremity and bilateral lower extremity weakness following neurologic event after aortic arch surgery in 1996 ago for [place]. Recently hospitalized back in August after a fall resulting in a intraparenchymal hemorrhage. Evaluations revealed high-grade bilateral carotid lesions which were confirmed by CTA of the neck revealing 52% right ICA stenosis and 82% left ICA stenosis. Due to his high-grade left-sided lesion, elective endarterectomy is recommended. Increased risk elated to his several comorbidities and prior to logic events were very frankly discussed. Proper consents have been reviewed and signed. Procedure: Mr. Obrien was placed on the OR table and underwent general endotracheal anesthesia with a neurological monitoring endotracheal tube as well as placement of a right radial arterial line. Bihemispheric monitoring pads were placed as well as grounding and sensing pads for nerve conduction evaluation during neck dissection.The entire upper chest and left neck were ster ilely prepped and draped. Incision was made along the anterior border of the sternomastoid muscle and carried down to the platysma with cautery. Dissection from this point forward was carried out utilizing Metzenbaum scissors and limited use of bipolar cautery. The internal jugular vein was dissected free and the facial vein was ligated, oversewn, and divided. Dissection was continued down through the ansa cervicalis with preservation of major branches. Minor branches were divided if required to allow for adequate exposure. Nerve conduction evaluation was performed throughout the dissection for protection of the recurrent nerve. We subsequently reached the common carotid artery. Dissection was then continued proximally to distally across the bifurcation. Vessel loops were placed around the common carotid artery, internal carotid artery, and external carotid artery. Distally, the base of the hypoglossal nerve could be easily identified and was protected, as well as the inferior belly of the digastric muscle. The internal carotid artery bifurcation and disease went fairly high and extended above the level of the mandibular angle. This did require some traction in this region, but great care was taken to minimize pressure to the hypoglossal nerve, which was protected. Care was taken during this dissection to avoid injury to the vagus nerve. The patient was then heparinized with 10,000 units. The systolic blood pressure was elevated to 160. Following this, in a rapid sequenced fashion, the distal internal carotid artery was clamped followed by clamping of the common carotid artery and external carotid artery. #11 scalpel blade was used to open the common carotid artery proximally, which was quite calcific. Ochoa scissors were then utilized to extend this arteriotomy across the distal common carotid artery and ulcerated very stenotic plaque and continue this further at the bifurcation across the calcific plaque in the internal carotid artery until we had reached normal intima, which was quite high and near the limits of our dissection. The internal carotid artery clamp was briefly flashed with evidence of brisk back bleeding, therefore we elected not to shunt. It should be noted that bi- hemispheric oximetry was recorded throughout the procedure. Next, a freer elevator was utilized to create a dissection plane the plaque from in [place] at the proximal portion of the arteriotomy. This was then divided with a #11 scalpel blade. This plaque was then further dissected along the intimal plane proximally to distally across the bifurcation. Utilizing an everting technique, plaque was removed from the external carotid artery with brisk flow. This plaque was then dissected free up the internal carotid artery to a feathered edge. Heparinized saline solution was utilized to remove any loose debris. Next, a Hemashield patch was brought into the field and sewn into position utilizing a running 6-0 Prolene suture, thereby completing our patch angioplasty. At the completion of the patch, the external carotid artery was opened followed by the common carotid artery and finally the internal carotid artery, thereby reestablishing cerebral flow. Areas of extravasation were repaired with 7-0 Prolene suture. After 5 minutes, heparin was reversed with protamine. Hemostasis was confirmed. The wound was irrigated with antibiotic solution. A small, flat, Francisco-Marinelli drain was placed in the wound and connected to bulb suction. Sponge and needle count was correct. The wound was then closed in 2 layers of 3-0 Vicryl suture. Skin was reapproximated in a subcuticular manner with 4-0 Monocryl suture. A pressure dressing was then applied. Mr. August was awakened from anesthesia and spontaneous movement of both feet and his right upper extremity. He was then transferred to the ICU in stable condition. We did prevocational/rehabilitation counselor with his sister at completion of the procedure, I did attempt to contact her during the procedure but were unsuccessful at that time. Mr. Weiner will be monitored in the ICU overnight.
[2020-02-25] MEDS: ketorolac 30 mg/mL INJ IVP (13:58)
[2020-02-25] MEDS: gabapentin 400 mg Capsule 800 MG PO ×2 (13:59→20:34)
[2020-02-25] MEDS: HYDROcodone-acetaminophen 7.5-325 mg Tablet 1 TAB PO (13:59)
[2020-02-25] MEDS: aspirin 81 mg EC Tablet PO (14:51)
[2020-02-25] MEDS: ceFAZolin 1,000 MG in sodium chloride 0.9% (plus) 50 ML 100 MG IV ×2 (14:57→23:09)
--- NOTE | 2020-02-25 18:27 | PC.NURSE ---
1400-- RIGHT RADIAL LINE DISCONTINUED. TOLERATED WELL. MANUAL PRESSURE APPLIED UNTIL HEMOSTASIS OBTAINED.
--- NOTE | 2020-02-25 18:32 | PC.NURSE ---
REFUSED DINNER. STATES THAT HE ONLY EATS BREAKFAST. HAS BEEN WATCHING POLITICS ON TV ALL AFTERNOON. SISTER CALLED TO CHECK ON HIM. PERSONAL BELONGINGS IN PT ROOM
[2020-02-25] MEDS: diphenhydrAMINE 25 mg Capsule PO (20:34)
[2020-02-26] VITALS (7 sets, daily range): BP systolic 107–123; BP diastolic 55–60; PULSE 61–63; RESP 17–18; TEMP 36.8; O2SAT 90–91
--- NOTE | 2020-02-26 00:28 | PC.NURSE ---
Report called to Luan on Med-surg. Patient transported safely with belongings at bedside to 2nd floor bed 270.
[2020-02-26] MEDS: ceFAZolin 1,000 MG in sodium chloride 0.9% (plus) 50 ML 100 MG IV (06:08)
--- NOTE | 2020-02-26 06:37 | PM.PN ---
Subjective Subjective: Interval history: ID number 1 status post left carotid endarterectomy. Low STELLA drain output overnight. Neurologically at baseline. Pain under good control. No swallowing or voice difficulties. Vitals/I&O/Wt Last Vital Signs Temp 98.2 F 02/26/20 04:00 Pulse 62 02/26/20 04:00 Resp 17 02/26/20 04:00 BP 123/59 02/26/20 04:00 Pulse Ox 91 02/26/20 04:00 02/25/20 02/25/20 02/26/20 14:59 22:59 06:59 Intake Total 1370 / 1370 830 / 2200 50 / 2250 Output Total 225 / 225 240 / 465 215 / 680 Balance 1145 / 1145 590 / 1735 -165 / 1570 Physical Exam Const: COMMON NORMALS: patient oriented x3 Neck/C-Spine: COMMON NORMALS: full ROM, no lymphadenopathy and supple OTHER: Left neck incision is intact. STELLA drain removed. Low output. New dressing applied. Neuro: COMMON NORMALS: patient oriented x3 OTHER: Neurologically, he is at baseline. Urinary Catheter Management^: Mann: Cath Placed During This Visit: yes, but has since been removed by the nurse Reason for Continuing Indwelling Catheter: Required Immobilization for Trauma or Surgery or Anesthesia Urinary Catheter Date of Insertion: 02/25/20 Urinary Catheter Time of Insertion: 07:35 Date Urinary Catheter Removed: 02/26/20 Time Urinary Catheter Discontinued: 06:11 Data : 02/22/20 09:31 02/22/20 09:31 A&P Assessment and plan (1) S/P carotid endarterectomy: POD #1 status post left carotid endarterectomy. Doing well. Plan: Discharge to home today. Status: Acute Attestations Medical Necessity Statement*: Status post left carotid endarterectomy Time Spent in Patient Care: 16 - 35 minutes Coding Level of Care Code Acute Medical Artist for [facility] Fwd Diagnoses S/P carotid endarterectomy Z98.890
--- NOTE | 2020-02-26 06:45 | PM.DCS ---
Discharge Providers Date of Admission: 02/25/20 10:15 Date of Discharge: February 26, 2020 Attending Provider at Admission: Saul Bermudez MD Attending Provider at Discharge: Saul Bermudez MD Primary Care Provider: Nikolay Briggs DO Diagnoses at Discharge Discharge Diagnosis (1) S/P carotid endarterectomy: Status: Acute Reason for Visit Reason for Visit: Left Carotid Endarterectomy Hospital Course Discharge Summary: Mr. Weiner is a 64-year-old gentleman with bilateral carotid disease including a high-grade 80% left ICA stenosis. 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 Given the high-grade stenosis of his left ICA, elective endarterectomy was recommended to reduce his statistical increased risk for spontaneous CVA. He was electively admitted yesterday February 24 and underwent left carotid endarterectomy with patch angioplasty. Postoperatively, he has done very well. He has had low STELLA drain output overnight. STELLA drain was discontinued this morning. Incision is clean, dry, and intact. No postoperative swelling. He is neurologically back to baseline. Voice quality is normal. No swallowing difficulties. Postoperative discomfort is under good control. He will be discharged to home today in stable condition. He will be scheduled to follow-up in my clinic in 1 week. Physical Exam Neck/C-Spine: COMMON NORMALS: full ROM, no lymphadenopathy and No carotid bruits OTHER: Neck incision is clean and dry. No postoperative swelling. STELLA drain was removed. Resp: COMMON NORMALS: normal respiratory effort, No retractions, No use of accessory muscles and clear to auscultation bilaterally AUSCULTATION: clear to auscultation bilaterally Neuro: OTHER: Neurologically, he is back to baseline. Voice quality is normal. Tongue is midline with protrusion. No swallowing difficulties. Urinary Catheter Management^: Mann: Cath Placed During This Visit: yes, but has since been removed by the nurse Reason for Continuing Indwelling Catheter: Required Immobilization for Trauma or Surgery or Anesthesia Urinary Catheter Date of Insertion: 02/25/20 Urinary Catheter Time of Insertion: 07:35 Date Urinary Catheter Removed: 02/26/20 Time Urinary Catheter Discontinued: 06:11 Discharge Data Data Completed and Pending: Completed Studies During Hospitalization Category Date Time Status XR chest 1V dariela ble [id number] Routine Exams 02/25/20 06:00 Completed Pending at discharge Category Date Time Status CTS [Type and Scr een - Cardiac] Rou starla Lab 02/22/20 09:56 Results Leukocyte Reduced RBC Routine Lab 02/22/20 09:56 Results Pathology: Surgic al [PTH] Routine Pth 02/25/20 10:28 Received Labs from last 24 hours 02/22/20 09:56 Blood Type O Positive Rho(D) Type Positive Antibody Screen Negative Crossmatch See Detail Vitals: Last Vital Signs Temp 98.2 F 02/26/20 04:00 Pulse 62 02/26/20 04:00 Resp 17 02/26/20 04:00 BP 123/59 02/26/20 04:00 Pulse Ox 91 02/26/20 04:00 Discharge Plan Discharge Patient Disposition: Home Condition: Stable Prescriptions: New hydrocodone-acetaminophen 5-325 mg tablet 1 tab PO Q6H 5 Days Qty: 20 RF: 0 Continued atenolol 50 mg tablet 50 mg PO DAILY RF: 0 atorvastatin 40 mg tablet 40 mg PO DAILY RF: 0 cholecalciferol (vitamin D3) 50 mcg (2,000 unit) tablet,chewable 50 mcg PO DAILY RF: 0 folic acid 1 mg tablet 1 mg PO DAILY RF: 0 gabapentin 800 mg tablet 800 mg PO TID RF: 0 tramadol 50 mg tablet 50 mg PO Q6H PRN (Reason: Pain) RF: 0 clopidogrel 75 mg tablet 75 mg PO DAILY RF: 0 aspirin 325 mg tablet 325 mg PO DAILY RF: 0 aspirin 81 mg Tablet,Delayed Release (Dr/Ec) 81 mg PO DAILY RF: 0 amlodipine 10 mg Tablet 10 mg PO DAILY RF: 0 Discharge Orders: Discharge Order (Routine); Ordered 02/26/20 Ordered By: Saul Bermudez Referrals: Saul Bermudez MD [Physician] - 1 week Discharge Diet: Usual diet Discharge Activity: Limit activity as instructed Activity Restrictions/Additional Instructions: May remove bandage in 2 days May begin daily showers in 2 days No swimming or tub baths x 2 weeks No ointments on incision Report drainage, redness, heat, increased pain, or swelling to clinic No heavy lifting or straining x2 weeks Resume all previous home medications Discharge Attestations Time Spent in Discharge Care*: less than 30 min Specific Discharge Activities: Specific discharge activities: educating patient, discussing with cyanide case hardener/social workers/dc planners, documenting/other paperwork and evaluating patient/reviewing data Status at Discharge: Cognitive status at discharge: cognitively intact, Functional status at discharge: uses cane/walker Overall status at discharge: patient is back to baseline Quality Metrics Clinical Quality Measures During this hospital stay, did patient experience: None Coding Level of Care Code 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
--- NOTE | 2020-02-26 07:36 | PC.NURSE ---
I reported to the nurse 02 level of 86% room air. we boosted the patient and elevated the head of bed got up to 90% room air
--- NOTE | 2020-02-26 08:07 | ANE.PACU2 ---
Inpatient post-anesthesia follow up: Airway intact: Yes Vital signs: Temperature 98.2 F Pulse Rate 63 Respiratory Rate 18 Blood Pressure 107/55 Pulse Oximetry 90 Oxygen Delivery Me thod Room Air Oxygen Flow Rate 2 Fraction of Inspir ed Oxygen Hydration adequate: Yes Nausea and vomiting: No Pain level: 1 Mental status: Baseline
[2020-02-26] MEDS: gabapentin 400 mg Capsule 800 MG PO (08:52)
[2020-02-26] MEDS: pantoprazole DR 40 mg Tablet PO (08:53)
[2020-02-26] MEDS: clopidogrel 75 mg Tablet PO (08:53)
[2020-02-26] MEDS: aspirin 81 mg Chew Tablet PO (08:53)
[2020-02-26] MEDS: amlodipine 10 mg Tablet PO (08:53)
[2020-02-26] MEDS: atenolol 50 mg Tablet PO (08:53)
[2020-02-26] MEDS: atorvastatin 40 mg Tablet PO (08:53)
== END 2020-02-26 10:50 | disposition home or self-care (01) | DRG 39 ==
LOC: ICU 10:16 → MEDSURG 23:35
PROVIDERS: Admitting Provider Thoracic Surgery (Cardiothoracic Vascular Surgery); PCP Emergency Medicine Emergency Medical Services; Visit Provider Thoracic Surgery (Cardiothoracic Vascular Surgery)
PROC: 03CL0ZZ Extirpation of Matter from Left Internal Carotid Artery, Open Approach (ICD-10-PCS; CPT 35301; principal; 2020-02-25 07:00)
DX: I65.22 Occlusion and stenosis of left carotid artery (principal); Z86.73 Personal history of transient ischemic attack (TIA), and cerebral infarction without residual deficits; I73.9 Peripheral vascular disease, unspecified; Z98.890 Other specified postprocedural states; I10 Essential (primary) hypertension; I25.10 Atherosclerotic heart disease of native coronary artery without angina pectoris; Z95.5 Presence of coronary angioplasty implant and graft; Z87.891 Personal history of nicotine dependence; F10.21 Alcohol dependence, in remission; Z95.1 Presence of aortocoronary bypass graft; Z79.82 Long term (current) use of aspirin; Z79.02 Long term (current) use of antithrombotics/antiplatelets
CPT/HCPCS: 12345; 36415; 51702; 71045; 80048; 85025; 85610; 86850; 86900; 86920; 88304; 93005; 96375; J0360; J0690; J1100; J1644; J1885; J2370; J2405; J2704; J2710; J2720; J3010; J3370; J3490; J7030

== ENCOUNTER → 2020-03-13 10:12 | Outpatient (BNVA) | payer OTHER, SELFPAY | PROVIDERS: PCP Emergency Medicine Emergency Medical Services; Visit Provider Podiatrist Foot & Ankle Surgery | DX: M25.571 Pain in right ankle and joints of right foot (principal); M79.671 Pain in right foot; M89.8X6 Other specified disorders of bone, lower leg; S82.401A Unspecified fracture of shaft of right fibula, initial encounter for closed fracture; S92.301A Fracture of unspecified metatarsal bone(s), right foot, initial encounter for closed fracture; Z86.73 Personal history of transient ischemic attack (TIA), and cerebral infarction without residual deficits; X58.XXXA Exposure to other specified factors, initial encounter | CPT/HCPCS: 73610 ==

== ENCOUNTER 2020-04-18 18:21 | Emergency (ER) | payer OTHER, SELFPAY ==
--- NOTE | 2020-04-18 18:27 | ED_ITS ---
HPI - Wound/Laceration General: Chief Complaint: Wound/Laceration Stated Complaint: FALL/ LAC TO LIP Time Seen by Provider: 04/18/20 18:26 History of Present Illness: HPI narrative: Patient is a 64-year-old male who comes to the ED via EMS with a laceration to face after fall. Patient says he fell in his house by actually tripping over a rug. His face hit the ground and he denies any loss of consciousness. He has a laceration above his lip that goes up to the nose. He also has some swelling around his nose and upper lip. He rates his current pain a 6 out of 10. He says he does not want any pain meds while here in the ED. Patient does take blood thinner daily. He is unsure of his last tetanus dose. Associated symptoms: Denies chills, fever(s), nausea or vomiting Review of Systems Const: Denies: fever(s), chills or fatigue Eyes: Denies: change in vision or eye discomfort ENMT: Denies: throat pain, odynophagia, nasal discharge or nasal congestion Card: Denies: chest pain, palpitations, edema, swelling of feet/ankles, dyspnea on exertion or orthopnea Resp: Denies: dyspnea, productive cough or non-productive cough GI: Denies: abdominal pain, nausea, vomiting, diarrhea, constipation or hematochezia : Denies: flank pain, difficulty urinating, dysuria or hematuria Musc: Denies: neck pain, back pain or extremity swelling Skin/Breast: Reports: new lesions (Laceration to face); Denies: rash Neuro: Denies: headache(s), numbness in extremities or weakness in extremities [facility] ED PFSH: Medical History Bilateral carotid artery disease CVA (cerebral vascular accident) 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 No active bleeding inside of lip and appears to be a through and through laceration.) and actively bleeding (Active bleeding on the outside of the lip. No active bleeding on the inside of lip) Facial laceration size: 2 cm (Linear laceration that is on upper lip but does not involve vermilion border. Laceration goes up and involves the skin on nasal septum) MOUTH: Normal oral and palatal mucosa present THROAT: posterior oropharynx normal and uvula midline Eye: COMMON NORMALS: Equal, round and reactive pupils present, EOMs intact bilaterally and conjunctivae normal CONJUNCTIVA: Yes conjunctivae normal PUPIL: Yes Equal, round and reactive pupils present Neck/C-Spine: COMMON NORMALS: supple GENERAL: Yes normal visual inspection Resp: COMMON NORMALS: normal respiratory effort, No retractions, No use of accessory muscles and clear to auscultation bilaterally AUSCULTATION: clear to auscultation bilaterally Cardio: COMMON NORMALS: regular rate, regular rhythm, S1 normal heart sound present, S2 normal heart sound present, No gallops present (Cardio), No clicks present (Cardio), No murmurs present (Cardio) and Peripheral pulses 2+ throughout RATE: regular rate RHYTHM: regular rhythm HEART SOUNDS: S1 normal heart sound present and S2 normal heart sound present PERIPHERAL PULSES: Peripheral pulses 2+ throughout GI: COMMON NORMALS: Normal to inspection, nondistended, normoactive bowel sounds present, Soft to palpation, non-tender and no masses PALPATION: Yes Soft to palpation : COMMON NORMALS: Yes no CVA tenderness BLADDER/KIDNEY EXAM: Yes no CVA tenderness Back/Pelvis: COMMON NORMALS: no CVA tenderness Neuro: SHABANA COMA SCALE: document GCS findings Shabana coma scale eye opening: Spontaneous Allen coma scale verbal response: Orientated Shabana coma scale motor response: Obey commands Shabana coma scale total score: 15 COMMON NORMALS: patient oriented x3, CN's II-XII intact bilaterally, moves all ex tremities and no sensory deficits noted SENSORIUM/ORIENTATION: Yes alert SENSORY EXAM: Yes extremities (intact) MOTOR EXAM: Abnormal motor strength present (Patient has weakness left side upper and lower extremities. Chronic issue) OTHER: Patient has some residual weakness on his left upper and lower extremities due to past CVA. No new weakness noted on exam. Skin: NARRATIVE SKIN EXAM: Laceration on face as noted in [facility] section of exam. GENERAL SKIN EXAM: dry skin Procedures Laceration Laceration 1: Site: face (Laceration is linear approximately 2 cm in length. It involves the upper lip and the skin of nasal septu) Size (cm): 2 Description: linear and clean Depth: simple, single layer Local Anesthetic: lidocaine 1%, with bicarb and other anesthetic (Viscous lidocaine was placed on laceration for approximately 20 minutes before I inject ed local lidocaine) Amount of anesthesia used (mL): 10 Pre-repair: irrigated extensively (with normal saline) Skin layer closed with: vicryl (Dissolvable sutures used) Size (cm): 6-0 Number of sutures: 6 Technique: simple, interrupted Course Reevaluation(s): Reevaluation #1: I went in and told patient about CT head findings of 5 mm intracranial hemorrhage. I told patient that we need to transfer him to either [facility] or [facility] in [place] for treatment and further evaluation. Patient did not want to be transferred and wanted to go home. I explained to patient the risk of possible neurological damage or even due to his diagnosis of intracranial hemorrhage. He is alert and oriented and understood the seriousness of the injury he sustained. Patient has competency and capacity to make decision for his care plan. I had patient repeat back to me what the risks were and he said he is aware that he could go home and potentially . I then told patient I recommend that he gets transferred to hospital for further evaluation. He again refused and I had him sign AMA forms. Reevaluation #2: I discussed with Dr. Ahuja about patient's case and CT head findings of acute hemorrhage. I told him that patient did not want to be transferred to [place] for further care and management and he would like to sign AMA and go home. I told Dr. Ahuja that I explained the risks to him and encouraged him multiple times to allow us to transfer him to [place] for further care and management. I also explained patient has competent has the mental capacity to understand and make his own decisions and treatment. Dr. Ahuja said if patient continues to refuse there is nothing we can do and have him sign an AMA form and encouraged him to come back if he changes his mind or has any other symptoms. Vital Signs: Vital signs: Vital Signs Temperature 99.0 F 04/18/20 18:30 Pulse Rate 66 04/18/20 22:20 Respiratory Rate 14 04/18/20 22:20 Blood Pressure 148/64 04/18/20 22:20 Pulse Oximetry 96 04/18/20 22:20 MDM - Wound/Laceration MDM Narrative: Medical decision making narrative: Patient is a 64-year-old male comes to the ED after having a fall. He has a laceration to upper lip with nasal swelling. Denies any loss of consciousness. denies any neurological symptoms. Patient has some residual left-sided weakness from prior stroke but rest of neuro exam was normal and no acute weakness seen. Patient is alert and oriented x3. Laceration was closed with absorbable sutures and patient tolerated that well. CT of cervical spine showed no acute fractures or findings. CT of facial bones showed nondisplaced nasal bone fracture. CT of head showed small 5 mm acute hemorrhage seen, with no associated mass-effect. I told patient about CT findings and that I would like for him to be transferred to [place] for further evaluation and management of care. Patient did not want to be transferred and wanted to go home. I explained to patient the risk of possible neurological damage or even due to his diagnosis of intracranial hemorrhage. He is alert and oriented and understood the seriousness of the injury he sustained. Patient has competency and capacity to make decision for his care plan. I had patient repeat back to me what the risks were and he said he is aware that he could go home and potentially . I then told patient I recommend that he gets transferred to hospital for further evaluation. He again refused and I had him sign AMA forms. Patient was sent home with a prescription for an antibiotic and I highly encourage patient to return to ED if he changes his mind or has any other symptoms. Placed an order with case management for patient be referred to ENT due to nasal fracture. Imaging Data^: CT Head: Attestation: I personally reviewed and interpreted this imaging study as follows: Radiologist's impression: [address] [place] [address] CT Scan Report Signed with Addenda Patient: MicahParminder Gonzales Unit #: [id number] : 1955 Age/Sex: 64 / M ADM Date: 04/18/20 Loc: ER Room/Bed: Attending Dr: Ordering Provider/Ordering MD: Nelson Porter Date of Service: 04/18/20 Procedure(s): CT head wo con* [id number] Accession Number(s): [id number] Report Number: [id number]/CT head wo con* [id number] THIS REPORT CONTAINS FINDINGS MAY BE CRITICAL TO PATIENT CARE. The findings were verbally communicated via telephone conference call with BELINDA Monique at 9:28 PM INTEGRITY ENGINEER on 04/18/2020. The findings were acknowledged and understood. Radiation Dose CTDIVOL = (mGy): DLP = 828.09 (mGy-cm) Addendum Dictated By: Ayad Raymond MD Addendum Signed By: Ayad Raymond MD Signed Date/Time: 04/18/202128 Addendum Cosigned By: PROCEDURE INFORMATION: Exam: CT Head Without Contrast Exam date and time: 04/18/2020 8:35 PM Age: 64 years old Clinical indication: Injury or trauma; Blunt trauma (contusions or hematomas) and laceration; Without residual foreign body; Head, generalized; Patient HX: Fall face first from standing. Bruising to nasion. Lac to upper lip. History of CVA. ; Additional info: Fall with head injury TECHNIQUE: Imaging protocol: Computed tomography of the head without contrast. Radiation optimization: All CT scans at this facility use at least one of these dose optimization techniques: automated exposure control; mA and/or kV adjustment per patient size (includes targeted exams where dose is matched to clinical indication); or iterative reconstruction. COMPARISON: CT head wo con* [id number] 09/01/2019 1:49 AM RADIATION DOSE METRICS: Total DLP (mGy-cm): 828.09 FINDINGS: Brain: Moderate parenchymal volume loss noted. There is decreased attenuation of the periventricular white matter, consistent with moderate microangiopathic chronic white matter disease. Large area of encephalomalacia on the right side, consistent with old right MCA infarct. Old lacunar infarcts, bilateral basal ganglia. Encephalomalacia noted in the bilateral occipital lobes. 5 mm hyperattenuating focus within the area of right MCA territory encephalomalacia (series 2, image 49), consistent with a small focus of acute hemorrhage. There is no associated mass effect. Cerebral ventricles: Mild ex vacuo expansion of the right lateral ventricle secondary to adjacent encephalomalacia. No hydrocephalus. Bones/joints: No fracture or other acute osseous abnormality. Paranasal sinuses: Mild mucoperiosteal thickening in the ethmoid sinuses. Minimal air-fluid level in the right maxillary sinus. Mastoid air cells: The mastoid air cells are clear bilaterally. Soft tissues: The soft tissues appear unremarkable. CT/CT head wo con* [id number] IMPRESSION: 1. Parenchymal atrophy and chronic microangiopathic white matter changes are noted. Large area of encephalomalacia in the right MCA territory. Multiple old lacunar infarcts. These findings are unchanged from 09/01/2019. 2. 5 mm hyperattenuating focus within the area of right MCA territory encephalomalacia (series 2, image 49), consistent with a small focus of acute hemorrhage. There is no associated mass effect. This is new when compared to 09/01/2019. No additional areas of focal hemorrhage demonstrated. 3. The focal parenchymal hemorrhage demonstrated on 09/01/2019 within the right sided encephalomalacia, has completely resolved. Radiation Dose CTDIVOL = (mGy): DLP = 828.09 (mGy-cm) Dictated By: Ayad Raymond MD Signed By: Ayad Raymond MD Signed Date/Time: 04/18/202115 DD/ [address]: Attestation: I personally reviewed and interpreted this imaging study as follows: Radiologist's impression: [employer] [address] [address] Scan Report Signed Patient: Parminder Obrien Unit #: [id number] : 1955 Age/Sex: 64 / M ADM Date: 04/18/20 Loc: ER Room/Bed: Attending Dr: Ordering Provider/Ordering MD: Nelson Porter Date of Service: 04/18/20 Procedure(s): CT facial bones wo con* [id number] Accession Number(s): [id number] Report Number: [id number] PROCEDURE INFORMATION: Exam: CT Maxillofacial Without Contrast Exam date and time: 04/18/2020 8:35 PM Age: 64 years old Clinical indication: Injury or trauma; Blunt trauma (contusions or hematomas); Nose and lip/oral cavity; Patient HX: Fall face first from standing. Bruising to nasion. Lac to upper lip. History of CVA. ; Additional info: Fall with injury to face TECHNIQUE: Imaging protocol: Computed tomography images of the face without contrast. Radiation optimization: All CT scans at this facility use at least one of these dose optimization techniques: automated exposure control; mA and/or kV adjustment per patient size (includes targeted exams where dose is matched to clinical indication); or iterative reconstruction. COMPARISON: CT facial bones wo con* [id number] 09/01/2019 1:53 AM RADIATION DOSE METRICS: Total DLP (mGy-cm): 774.67 FINDINGS: Orbital cavity: The orbits are intact. Bones/joints: Nondisplaced fracture noted of the right superior nasal bone. Nondisplaced fracture of the anterior portion of the nasal septum. The zygomatic arches are intact. The mandible is intact. No fracture of the pterygoid plates. Paranasal sinuses: Trace air-fluid level in the right maxillary sinus. No additional air-fluid levels. Mild mucoperiosteal thickening in the ethmoid sinuses. Soft tissues: There is a laceration seen in the nasolabial soft tissues. CT/CT facial bones wo con* [id number] IMPRESSION: Nondisplaced fracture noted of the right superior nasal bone. Nondisplaced fracture of the anterior portion of the nasal septum. Radiation Dose CTDIVOL = (mGy): DLP = 774.67 (mGy-cm) Dictated By: Ayad Raymond MD Signed By: Ayad Raymond MD Signed Date/Time: 04/18/202111 DD/ [address] [address] [address] Scan Report Signed Patient: Parminder Obrien Unit #: [id number] : 1955 Age/Sex: 64 / M ADM Date: 04/18/20 Loc: ER Room/Bed: Attending Dr: Ordering Provider/Ordering MD: Nelson Porter Date of Service: 04/18/20 Procedure(s): CT cervical spin wo con* [id number] Accession Number(s): [id number] Report Number: [id number] PROCEDURE INFORMATION: Exam: CT Cervical Spine Without Contrast Exam date and time: 04/18/2020 8:35 PM Age: 64 years old Clinical indication: Injury or trauma; Blunt trauma; Patient HX: Fall face first from standing. Bruising to nasion. Lac to upper lip. History of CVA. ; Additional info: Fall with head injury TECHNIQUE: Imaging protocol: Computed tomography images of the cervical spine without contrast. Radiation optimization: All CT scans at this facility use at least one of these dose optimization techniques: automated exposure control; mA and/or kV adjustment per patient size (includes targeted exams where dose is matched to clinical indication); or iterative reconstruction. COMPARISON: CT cervical spin wo con* [id number] 09/01/2019 1:56 AM RADIATION DOSE METRICS: Total DLP (mGy-cm): 439.23 FINDINGS: Bones/joints: Congenital nonunion of the posterior arch of C1. No fracture. Vertebral body heights are preserved. No compression fractures are noted. Vertebral alignment is physiologic. Facet joints appear intact. Discs/Spinal canal/Neural foramina: Degenerative disc narrowing at C6-C7. Intervertebral disc heights are otherwise preserved. Disc bulges are demonstrated at C3-C4, C4-C5, C5-C6, and C6-C7. Soft tissues: Unremarkable. Lungs: The lung apices are unremarkable. Pleural space: No apical pneumothorax demonstrated. CT/CT cervical spin wo con* [id number] IMPRESSION: 1. No acute abnormality of the cervical spine. 2. There is no interval change from the prior examination. 3. Disc bulges are demonstrated at C3-C4, C4-C5, C5-C6, and C6-C7. Radiation Dose CTDIVOL = (mGy): DLP = 439.23 (mGy-cm) Dictated By: Ayad Raymond MD Signed By: Ayad Raymond MD Signed Date/Time: 04/18/202115 DD/ 14 Discharge Plan Discharge Patient Disposition: Left Against Medical Advice Clinical Impression: Hemorrhage, intracranial Fracture of nasal bone Qualifiers: Encounter type: initial encounter Fracture type: closed Qualified Code(s): S02.2XXA - Fracture of nasal bones, initial encounter for closed fracture Condition: Stable Prescriptions: New Augmentin 500-125 mg tablet 1 tab PO BID 7 Days Qty: 14 RF: 0 No Action atenolol 50 mg tablet 50 mg PO DAILY RF: 0 atorvastatin 40 mg tablet 40 mg PO DAILY RF: 0 cholecalciferol (vitamin D3) 50 mcg (2,000 unit) tablet,chewable 50 mcg PO DAILY RF: 0 folic acid 1 mg tablet 1 mg PO DAILY RF: 0 gabapentin 800 mg tablet 800 mg PO TID RF: 0 tramadol 50 mg tablet 50 mg PO Q6H PRN (Reason: Pain) RF: 0 clopidogrel 75 mg tablet 75 mg PO DAILY RF: 0 aspirin 325 mg tablet 325 mg PO DAILY RF: 0 aspirin 81 mg Tablet,Delayed Release (Dr/Ec) 81 mg PO DAILY RF: 0 amlodipine 10 mg Tablet 10 mg PO DAILY RF: 0 Referrals: Nikolay Briggs DO [Primary Care Provider] - Patient Instructions: Nasal Fracture (ED), Laceration (ED), Absorbable Suture Care (ED) Activity Restrictions/Additional Instructions: You have discharged AGAINST MEDICAL ADVICE. You were diagnosed with an intracranial hemorrhage. Return to ED immediately if you are having any other neurological symptoms or headache. Follow-up with medical provider as directed. Take medications as prescribed. Return to the ER or your medical provider if condition worsens. Please read and understand discharge instructions. If any questions, please ask. Coding Level of Care Code ED Director Of Research for Armin Fwalida Exam Comprehensive
[2020-04-18 18:30] VITALS: BP 137/58; PULSE 59; RESP 14; TEMP 37.2; O2SAT 96; BMI 27.4
--- NOTE | 2020-04-18 18:49 | CTR_ITS ---
PROCEDURE INFORMATION: Exam: CT Maxillofacial Without Contrast Exam date and time: 04/18/2020 8:35 PM Age: 64 years old Clinical indication: Injury or trauma; Blunt trauma (contusions or hematomas); Nose and lip/oral cavity; Patient HX: Fall face first from standing. Bruising to nasion. Lac to upper lip. History of CVA. ; Additional info: Fall with injury to face TECHNIQUE: Imaging protocol: Computed tomography images of the face without contrast. Radiation optimization: All CT scans at this facility use at least one of these dose optimization techniques: automated exposure control; mA and/or kV adjustment per patient size (includes targeted exams where dose is matched to clinical indication); or iterative reconstruction. COMPARISON: CT facial bones wo con* [id number] 09/01/2019 1:53 AM RADIATION DOSE METRICS: Total DLP (mGy-cm): 774.67 FINDINGS: Orbital cavity: The orbits are intact. Bones/joints: Nondisplaced fracture noted of the right superior nasal bone. Nondisplaced fracture of the anterior portion of the nasal septum. The zygomatic arches are intact. The mandible is intact. No fracture of the pterygoid plates. Paranasal sinuses: Trace air-fluid level in the right maxillary sinus. No additional air-fluid levels. Mild mucoperiosteal thickening in the ethmoid sinuses. Soft tissues: There is a laceration seen in the nasolabial soft tissues. CT/CT facial bones wo con* [id number] IMPRESSION: Nondisplaced fracture noted of the right superior nasal bone. Nondisplaced fracture of the anterior portion of the nasal septum. Radiation Dose CTDIVOL = (mGy): DLP = 774.67 (mGy-cm)
--- NOTE | 2020-04-18 18:49 | CTR_ITS ---
PROCEDURE INFORMATION: Exam: CT Cervical Spine Without Contrast Exam date and time: 04/18/2020 8:35 PM Age: 64 years old Clinical indication: Injury or trauma; Blunt trauma; Patient HX: Fall face first from standing. Bruising to nasion. Lac to upper lip. History of CVA. ; Additional info: Fall with head injury TECHNIQUE: Imaging protocol: Computed tomography images of the cervical spine without contrast. Radiation optimization: All CT scans at this facility use at least one of these dose optimization techniques: automated exposure control; mA and/or kV adjustment per patient size (includes targeted exams where dose is matched to clinical indication); or iterative reconstruction. COMPARISON: CT cervical spin wo con* [id number] 09/01/2019 1:56 AM RADIATION DOSE METRICS: Total DLP (mGy-cm): 439.23 FINDINGS: Bones/joints: Congenital nonunion of the posterior arch of C1. No fracture. Vertebral body heights are preserved. No compression fractures are noted. Vertebral alignment is physiologic. Facet joints appear intact. Discs/Spinal canal/Neural foramina: Degenerative disc narrowing at C6-C7. Intervertebral disc heights are otherwise preserved. Disc bulges are demonstrated at C3-C4, C4-C5, C5-C6, and C6-C7. Soft tissues: Unremarkable. Lungs: The lung apices are unremarkable. Pleural space: No apical pneumothorax demonstrated. CT/CT cervical spin wo con* [id number] IMPRESSION: 1. No acute abnormality of the cervical spine. 2. There is no interval change from the prior examination. 3. Disc bulges are demonstrated at C3-C4, C4-C5, C5-C6, and C6-C7. Radiation Dose CTDIVOL = (mGy): DLP = 439.23 (mGy-cm)
--- NOTE | 2020-04-18 18:49 | CTR_ITS ---
PROCEDURE INFORMATION: Exam: CT Head Without Contrast Exam date and time: 04/18/2020 8:35 PM Age: 64 years old Clinical indication: Injury or trauma; Blunt trauma (contusions or hematomas) and laceration; Without residual foreign body; Head, generalized; Patient HX: Fall face first from standing. Bruising to nasion. Lac to upper lip. History of CVA. ; Additional info: Fall with head injury TECHNIQUE: Imaging protocol: Computed tomography of the head without contrast. Radiation optimization: All CT scans at this facility use at least one of these dose optimization techniques: automated exposure control; mA and/or kV adjustment per patient size (includes targeted exams where dose is matched to clinical indication); or iterative reconstruction. COMPARISON: CT head wo con* [id number] 09/01/2019 1:49 AM RADIATION DOSE METRICS: Total DLP (mGy-cm): 828.09 FINDINGS: Brain: Moderate parenchymal volume loss noted. There is decreased attenuation of the periventricular white matter, consistent with moderate microangiopathic chronic white matter disease. Large area of encephalomalacia on the right side, consistent with old right MCA infarct. Old lacunar infarcts, bilateral basal ganglia. Encephalomalacia noted in the bilateral occipital lobes. 5 mm hyperattenuating focus within the area of right MCA territory encephalomalacia (series 2, image 49), consistent with a small focus of acute hemorrhage. There is no associated mass effect. Cerebral ventricles: Mild ex vacuo expansion of the right lateral ventricle secondary to adjacent encephalomalacia. No hydrocephalus. Bones/joints: No fracture or other acute osseous abnormality. Paranasal sinuses: Mild mucoperiosteal thickening in the ethmoid sinuses. Minimal air-fluid level in the right maxillary sinus. Mastoid air cells: The mastoid air cells are clear bilaterally. Soft tissues: The soft tissues appear unremarkable. CT/CT head wo con* [id number] IMPRESSION: 1. Parenchymal atrophy and chronic microangiopathic white matter changes are noted. Large area of encephalomalacia in the right MCA territory. Multiple old lacunar infarcts. These findings are unchanged from 09/01/2019. 2. 5 mm hyperattenuating focus within the area of right MCA territory encephalomalacia (series 2, image 49), consistent with a small focus of acute hemorrhage. There is no associated mass effect. This is new when compared to 09/01/2019. No additional areas of focal hemorrhage demonstrated. 3. The focal parenchymal hemorrhage demonstrated on 09/01/2019 within the right sided encephalomalacia, has completely resolved. Radiation Dose CTDIVOL = (mGy): DLP = 828.09 (mGy-cm)
[2020-04-18] MEDS: tetanus-dipt-pertussis 0.5 mL SDV IM (20:13)
[2020-04-18] MEDS: lidocaine 2% viscous 15 mL UDC 10 ML TOPICAL (21:49)
[2020-04-18 22:20] VITALS: BP 148/64; PULSE 66; RESP 14; O2SAT 96
--- NOTE | 2020-04-22 07:54 | DCPLANNER ---
Addendum entered by Vida Mo 04/23/20 09:34: Patient has [facility] insurance, case finishing machine adjuster emailed patients information to August with the [facility] over a secure email. apparel manager prema Tom at Dr. Dougherty office that case finishing machine adjuster informed the [facility] that patient was in the ER and that patient needed a referral to Dr. Dougherty office. Original Note: apparel manager had message to schedule a follow up appointment for patient with Dr. Holly, ENT. apparel manager faxed patients information to the office of Dr. Holly. apparel manager will call for appointment information. Clinic will call patient with appointment information.
--- NOTE | 2020-04-25 13:12 | DCPLANNER ---
Patient has a follow up appointment scheduled for Wednesday, April 29, 2020 at 2:10. Clinic will call patient with appointment information.
--- NOTE | 2020-04-30 10:54 | DCPLANNER ---
Patient had a follow up appointment scheduled for 04.29.[address] Holly - patient did not attend the appointment.
== END 2020-04-18 23:02 | disposition left against medical advice (07) ==
PROVIDERS: Emergency Provider Physician Assistant; PCP Emergency Medicine Emergency Medical Services
DX: S02.2XXA Fracture of nasal bones, initial encounter for closed fracture (principal); I62.9 Nontraumatic intracranial hemorrhage, unspecified; Z79.02 Long term (current) use of antithrombotics/antiplatelets; Z79.82 Long term (current) use of aspirin; S01.511A Laceration without foreign body of lip, initial encounter; Z86.73 Personal history of transient ischemic attack (TIA), and cerebral infarction without residual deficits; I10 Essential (primary) hypertension; Z87.891 Personal history of nicotine dependence; Z23 Encounter for immunization; W18.09XA Striking against other object with subsequent fall, initial encounter
CPT/HCPCS: 12011; 12345; 70450; 70486; 72125; 90715; 99281; 99283

== ENCOUNTER 2020-05-07 11:22 | Outpatient (CLI) | payer OTHER, SELFPAY ==
--- NOTE | 2020-05-07 11:00 | USCV_ITS ---
MicahParminder mayer Age: 64 Gender: M : 1955 Exam Date: 05/07/2020 11:56 Ordering Phys: Saul Bermudez MD (Andy) ([email or web address] [place] Technologist: Chelsey Pulido Exam Location: [facility] – [place], [place] Indication: PRIOR LCEA Risk Factors: Previous Vascular Surgery: Right Brachial BP: / Left Brachial BP: / Right Left Velocity (cm/s) Spectral Plaque Velocity (cm/s) Spectral Plaque Syst/Diast Broadening Syst/Diast Broadening 100.90/15.40 Prox CCA 112.10/ 28.40 109.60/14.40 Mid CCA 71.00 / 13.10 79.80/ 11.50 Distal CCA 71.00 / 14.20 82.70/ 19.20 Prox ICA 80.70 / 11.20 91.80/ 28.30 Mid ICA 113.30/ 36.00 84.00/ 23.20 Distal ICA 130.90/ 22.30 96.10 ECA 86.70 0.84 ICA/CCA 1.84 Antegrade Vertebral Retrograde 74.20/ 10.10 cm/s / cm/s Tri Subclavian [place] 139.0 70.00 0 FINDINGS Comparison: 12/12/19. Diffuse bilateral scattered calcified plaque and intimal thickening throughout the common carotid arteries and extending through the bifurcation. Tortuous carotid arteries with intimal thickening. No high grade stenosis. CONCLUSIONS Bilateral ICA stenosis less than 50%. Moderate diffuse atherosclerosis and intimal thickening. Left subclavian steal. Dr. Maria Isabel Cox DO (Electronically Signed) Final Date: 07 May 2020 15:52 S
== END 2020-05-07 11:23 | disposition home or self-care (01) ==
PROVIDERS: PCP Emergency Medicine Emergency Medical Services; Visit Provider Thoracic Surgery (Cardiothoracic Vascular Surgery)
DX: I65.23 Occlusion and stenosis of bilateral carotid arteries (principal)
CPT/HCPCS: 93880

== ENCOUNTER → 2020-06-12 15:18 | Outpatient (BNVA) | payer OTHER, SELFPAY | PROVIDERS: PCP Emergency Medicine Emergency Medical Services; Visit Provider Podiatrist Foot & Ankle Surgery | DX: S82.401A Unspecified fracture of shaft of right fibula, initial encounter for closed fracture (principal); X58.XXXA Exposure to other specified factors, initial encounter | CPT/HCPCS: 73610 ==

== ENCOUNTER 2021-03-10 13:51 | Outpatient (CLI) | payer OTHER, SELFPAY ==
--- NOTE | 2021-03-10 15:00 | USCV_ITS ---
Parminder Obrien Age: 65 Gender: M : 1955 Exam Date: 03/10/2021 14:26 Ordering Phys: Saul Bermudez MD (Andy) ([email or web address] [place]) Technologist: FRANDY [place] [facility] [place]: OCCLUSION AND STENOSIS OF CAROTID Risk Factors: Previous Vascular Surgery: Right Brachial BP: / Left Brachial BP: / Right Left Velocity (cm/s) Spectral Plaque Velocity (cm/s) Spectral Plaque Syst/Diast Broadening Syst/Diast Broadening 140.00/18.70 Prox CCA 168.60/ 29.60 152.50/19.70 Mid CCA 110.30/ 12.40 147.20/18.40 Distal CCA 122.70/ 18.60 142.10/30.60 Prox ICA 199.70/ 28.80 127.50/32.90 Mid ICA 181.70/ 36.00 85.40/ 23.70 Distal ICA 152.90/ 34.20 242.90 ECA 223.10 0.84 ICA/CCA 1.65 Antegrade Vertebral Retrograde 181.8/ 14.00 cm/s / cm/s 0 Tri Subclavian Stone 328.7 0 FINDINGS Comparison:. 05/07/20 Diffuse bilateral scattered calcified plaque and intimal thickening throughout the common carotid arteries and extending through the bifurcation. Progression of carotid stenosis since the prior exam. Retrograde left vertebal artery. Mild stenosis bilateral subclavian arteries. CONCLUSIONS Left ICA stenosis 50-69%. Right ICA stenosis < 50%. Diffuse carotid atherosclerosis. Retrograde left vertebral artery, suspect subclavian artery steal. Dr. Maria Isabel Cox DO (Electronically Signed) Final Date: 10 March 2021 15:23 S
== END 2021-03-10 13:52 | disposition home or self-care (01) ==
LOC: US 13:53
PROVIDERS: PCP Emergency Medicine Emergency Medical Services; Visit Provider Thoracic Surgery (Cardiothoracic Vascular Surgery)
DX: I65.23 Occlusion and stenosis of bilateral carotid arteries (principal)
CPT/HCPCS: 93880

== ENCOUNTER 2022-03-10 12:15 | Outpatient (CLI) | payer OTHER, SELFPAY ==
--- NOTE | 2022-03-10 12:35 | XR_ITS ---
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 The lungs are hyperinflated and clear. No pleural effusions. Signs of previous CABG surgery. Cardiome diastinal silhouette is otherwise unremarkable. Several old left-sided rib fractures. XR/XR chest 2V* [id number] IMPRESSION: 1. Pulmonary hyperinflation. No acute cardiopulmonary process.
== END 2022-03-10 12:16 | disposition home or self-care (01) ==
LOC: RAD 12:19
PROVIDERS: PCP Emergency Medicine Emergency Medical Services; Visit Provider Emergency Medicine Emergency Medical Services
DX: R10.9 Unspecified abdominal pain (principal); Z87.891 Personal history of nicotine dependence
CPT/HCPCS: 71046; 99203

== ENCOUNTER 2022-04-10 14:13 | Emergency (ER) | payer OTHER, SELFPAY ==
[2022-04-10 14:22] VITALS: BP 168/75; PULSE 79; RESP 16; TEMP 36.2; O2SAT 100
--- NOTE | 2022-04-10 14:33 | XRR_ITS ---
PROCEDURE INFORMATION: Exam: XR Right Foot Exam date and time: 04/10/2022 3:39 PM Age: 66 years old Clinical indication: Pain; Foot; Right TECHNIQUE: Imaging protocol: Radiologic exam of the Right foot. Views: 3 or more views. COMPARISON: No relevant prior studies available. FINDINGS: Bones/joints: Multi-articular primary osteoarthritic changes including joint space narrowing, subchondral cystic/sclerotic changes, and marginal osteophyte formations. There is valgus at the 1st metatarsal phalangeal and interphalangeal joints. There is a benign os peroneus accessory ossicle. Soft tissues: Normal. XR/XR foot RT min 3V* [id number] IMPRESSION: 1. Multi-articular primary osteoarthritic changes as described above. 2. There is valgus at the 1st metatarsal phalangeal and interphalangeal joints.
--- NOTE | 2022-04-10 14:38 | W.ED.WOUNDLC ---
HPI - Wound/Laceration General: Chief Complaint: Wound/Laceration Stated Complaint: R big toe swelling/discoloration Time Seen by Provider: 04/10/22 14:32 Source: patient Mode of arrival: ambulatory History of Present Illness: 66-year-old male arrives with a black essentially withered toe on the right foot. It is well demarcated. He has a caregiver with him his has been helping him but did really not noticed changes in the toe until recently. He has not had any fever sweats chills with no redness or swelling in the area. Onset (ago): week(s) Place: home Associated symptoms: Denies chills, fever(s), foreign body sensation, inability to move, nausea, numbness, pain, syncope or vomiting Review of Systems Const: Denies: fever(s) or chills ENMT: Denies: throat pain, ear or mastoid pain, nasal discharge or nasal congestion Card: Denies: chest pain, palpitations or syncope Resp: Denies: dyspnea, productive cough or non-productive cough GI: Denies: abdominal pain, nausea or vomiting : Denies: flank pain, dysuria, urinary frequency or urinary urgency Skin/Breast: Denies: rash or pruritus PFSH ED PFSH: Medical History Bilateral carotid artery disease CVA (cerebral vascular accident) 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 Hypertension Peripheral Vascular Disease Surgical History History of heart artery stent Hx of CABG S/P femoral-femoral bypass surgery Family History Denies family history of CAD (coronary artery disease) Social History Smoking and tobacco status: current every day smoker Alcohol intake: former Physical Exam Const: COMMON NORMALS: no acute distress GENERAL APPEARANCE: cooperative and comfortable ORIENTATION/CONSCIOUSNESS: Yes awake HENMT: COMMON NORMALS: normocephalic and atraumatic HEAD & SCALP: normocephalic and atraumatic Resp: COMMON NORMALS: normal respiratory effort, No retractions, No use of accessory muscles and clear to auscultation bilaterally AUSCULTATION: clear to auscultation bilaterally Cardio: COMMON NORMALS: regular rate, regular rhythm and No murmurs present (Cardio) RATE: regular rate RHYTHM: regular rhythm GI: COMMON NORMALS: Soft to palpation and No hepatosplenomegaly present AUSCULTATION: Yes normoactive bowel sounds PALPATION: Yes Soft to palpation, No Tenderness to palpation present (GI), No Guarding due to palpation present (GI) and Yes No hepatosplenomegaly present Extremity: OTHER: Right great toe the tissue is . Is well demarcated to the right first MTP joint. There is no redness no erythema no induration. Does not appear to be acutely infected. Skin: COMMON NORMALS: no rashes or lesions noted GENERAL SKIN EXAM: no rashes or lesions noted Course Vital Signs: Vital signs: Vital Signs Temperature 97.2 F L 04/10/22 14:22 Pulse Rate 71 04/10/22 16:09 Respiratory Rate 16 04/10/22 15:00 Blood Pressure 163/83 04/10/22 16:09 Pulse Oximetry 97 04/10/22 16:09 Oxygen Delivery Me thod 04/10/22 14:22 MDM - Wound/Laceration Medical Decision Making Patient is a heavy smoker as previously a stroke and he has known carotid stenosis suspect he most likely does have peripheral vascular disease as well the toe is nonsalvageable at this point it is not acutely infected I discussed with on-call orthopedics they agree patient can be discharged home and set up for outpatient evaluation and scheduled amputation of the digit. Will refer to podiatry. Return if he has any further problems encouraged stop smoking continue his Plavix and aspirin. Additionally we will set up ultrasound evaluation for arterial flow in the lower extremities through case management. Medical Records I reviewed the patient's medical records. Lab Data I reviewed the patient's lab results. 04/10/22 14:50 04/10/22 14:50 Radiology Impressions Foot X-Ray 04/10/22 14:33 IMPRESSION: 1. Multi-articular primary osteoarthritic changes as described above. 2. There is valgus at the 1st metatarsal phalangeal and interphalangeal joints. Laboratory Results WBC 9.4 10^3/uL (4.0-10.0) 04/10/22 14:50 RBC 3.95 10^6/uL (4.1-5.3) L 04/10/22 14:50 Hgb 12.8 g/dL (11.7-16.6) 04/10/22 14:50 Hct 36.5 % (42.0-52.0) L 04/10/22 14:50 MCV 92.4 fl (80-94) 04/10/22 14:50 MCH 32.4 pg (28.0-34.0) 04/10/22 14:50 MCHC 35.1 g/dL (30.0-36.0) 04/10/22 14:50 RDW 13.1 % (12.1-15.1) 04/10/22 14:50 Plt Count 273 10^3/cmm (130-400) 04/10/22 14:50 MPV 8.9 fL (7.4-10.4) 04/10/22 14:50 Neut % (Auto) 71.6 % 04/10/22 14:50 Lymph % (Auto) 16.7 % 04/10/22 14:50 Gooding % (Auto) 9.3 % 04/10/22 14:50 Eos % (Auto) 1.5 % 04/10/22 14:50 Baso % (Auto) 0.5 % 04/10/22 14:50 Neut # (Auto) 6.75 10^3/uL (1.8-7.7) 04/10/22 14:50 Lymph # (Auto) 1.6 10^3/uL (0.8-4.8) 04/10/22 14:50 Gooding # (Auto) 0.9 10^3/uL (0.2-0.9) 04/10/22 14:50 Eos # (Auto) 0.1 10^3/uL (0.0-0.8) 04/10/22 14:50 Baso # (Auto) 0.1 10^3/uL (0.0-0.1) 04/10/22 14:50 Nucleated RBC % (auto) 0 % 04/10/22 14:50 Nucleated RBCs # 0.0 /100WBC 04/10/22 14:50 Sodium 137 mmol/L (136-145) 04/10/22 14:50 Potassium 3.6 mmol/L (3.5-5.1) 04/10/22 14:50 Chloride 99 mmol/L (98-107) 04/10/22 14:50 Carbon Dioxide 27 mmol/L (22-29) 04/10/22 14:50 Anion Gap 14.6 (5-19) 04/10/22 14:50 BUN 6 mg/dL (8-23) L 04/10/22 14:50 Creatinine 0.7 mg/dL (0.7-1.2) 04/10/22 14:50 GFR Calculation 112.5 mL/min (90-130) 04/10/22 14:50 Glucose 98 mg/dL (65-115) 04/10/22 14:50 Calculated Osmolality 282 mOsm/kg (285-295) L 04/10/22 14:50 Calcium 9.7 mg/dL (8.5-10.5) 04/10/22 14:50 Total Bilirubin 0.3 mg/dL (0.15-1.2) 04/10/22 14:50 AST 16 U/L (0-40) 04/10/22 14:50 ALT 8 U/L (0-41) 04/10/22 14:50 Alkaline Phosphatase 223 U/L (40-130) H 04/10/22 14:50 Total Protein 7.2 g/dL (6.6-8.7) 04/10/22 14:50 Albumin 3.7 g/dL (3.5-5.2) 04/10/22 14:50 Globulin 3.5 g/dL (1.3-4.6) 04/10/22 14:50 Discharge Plan Discharge Patient Disposition: Home Clinical Impression: Gangrenous toe, Peripheral vascular disease Condition: Stable Prescriptions: No Action atenolol 50 mg tablet 50 mg PO DAILY atorvastatin 40 mg tablet 40 mg PO DAILY cholecalciferol (vitamin D3) 50 mcg (2,000 unit) tablet,chewable 50 mcg PO DAILY folic acid 1 mg tablet 1 mg PO DAILY gabapentin 800 mg tablet 800 mg PO TID tramadol 50 mg tablet 50 mg PO Q6H PRN (Reason: Pain) clopidogrel 75 mg tablet 75 mg PO DAILY aspirin 325 mg tablet 325 mg PO DAILY amoxicillin-pot clavulanate 875-125 mg tablet 1 tab PO Q12H 10 Days Qty: 20 0RF Rx Instructions: 1 tablet by mouth every 12 hours until gone psyllium husk [Daily Fiber] 0.52 gram capsule 0.52 g PO DAILY finasteride 5 mg tablet 5 mg PO DAILY aspirin 81 mg Tablet,Delayed Release (Dr/Ec) 81 mg PO DAILY amlodipine 10 mg Tablet 10 mg PO DAILY Discharge Orders: Discharge ED (Routine); Ordered 04/10/22 Ordered By: Jonathon Russ Referrals: Nikolay Briggs DO [Primary Care Provider] - Discharge Diet: Usual diet Discharge Activity: Limit activity as instructed Patient Instructions: Opioid Safety, Pain Management Activity Restrictions/Additional Instructions: You were seen today for a gangrenous right great toe. Currently it is not infected. We will discharge you from the emergency room and make arrangements for follow-up with podiatry. Will also make arrangements for outpatient peripheral artery studies in preparation for treatment of the toe. Coding Level of Care Code ED Inserter Operator for Armin Carroll
[2022-04-10 14:56] LABS: Basophils # 0.1 10^3/uL (0.0-0.1); Basophils % 0.5 %; Eosinophils # 0.1 10^3/uL (0.0-0.8); Eosinophils % 1.5 %; Hematocrit 36.5 % (42.0-52.0); Hemoglobin 12.8 g/dL (11.7-16.6); Lymphocytes # 1.6 10^3/uL (0.8-4.8); Lymphocytes % 16.7 %; Mean Corpuscular HGB Conc 35.1 g/dL (30.0-36.0); Mean Corpuscular Hemoglobin 32.4 pg (28.0-34.0); Mean Corpuscular Volume 92.4 fl (80-94); Mean Platelet Volume 8.9 fL (7.4-10.4); Monocytes # 0.9 10^3/uL (0.2-0.9); Monocytes % 9.3 %; Neutrophils # 6.75 10^3/uL (1.8-7.7); Neutrophils % 71.6 %; Nucleated Red Blood Cells % 0 %; Platelet Count 273 10^3/cmm (130-400); Red Blood Count 3.95 10^6/uL (4.1-5.3); Red Cell Distribution Width 13.1 % (12.1-15.1); White Blood Count 9.4 10^3/uL (4.0-10.0)
[2022-04-10 15:00] VITALS: BP 181/78; PULSE 71; RESP 16; O2SAT 96
[2022-04-10 15:16] LABS: Alanine Aminotransferase 8 U/L (0-41); Albumin Level 3.7 g/dL (3.5-5.2); Alkaline Phosphatase 223 U/L (40-130); Anion Gap 14.6 (5-19); Aspartate Amino Transferase 16 U/L (0-40); Blood Urea Nitrogen 6 mg/dL (8-23); Calcium 9.7 mg/dL (8.5-10.5); Carbon Dioxide 27 mmol/L (22-29); Chloride 99 mmol/L (98-107); Globulin 3.5 g/dL (1.3-4.6); Glomerular Filtration Rate 112.5 mL/min (90-130); Glucose 98 mg/dL (65-115); Osmolality Calculated 282 mOsm/kg (285-295); Potassium 3.6 mmol/L (3.5-5.1); Sodium 137 mmol/L (136-145); Total Bilirubin 0.3 mg/dL (0.15-1.2); Total Protein 7.2 g/dL (6.6-8.7)
[2022-04-10 16:09] VITALS: BP 163/83; PULSE 71; O2SAT 97
--- NOTE | 2022-04-12 10:42 | DCPLANNER ---
Addendum entered by Vida Mo 04/22/22 16:18: Patient had a follow up appointment scheduled for 04.13.22 with ortho - patient did attend appointment. Original Note: on site property manager had message to schedule a follow up appointment for patient with podiatry. on site property manager sent patients information to the front office staff at ortho. Patients information will be printed and reviewed. Clinic will call patient with appointment information. on site property manager also sent patients information to Julieta with [facility], for the authorization process to be started.
== END 2022-04-10 16:12 | disposition home or self-care (01) ==
PROVIDERS: Emergency Provider Family Medicine; PCP Emergency Medicine Emergency Medical Services
DX: I96 Gangrene, not elsewhere classified (principal); M19.071 Primary osteoarthritis, right ankle and foot; I10 Essential (primary) hypertension; F17.200 Nicotine dependence, unspecified, uncomplicated; Z86.73 Personal history of transient ischemic attack (TIA), and cerebral infarction without residual deficits
CPT/HCPCS: 73630; 80053; 85025; 99284

== ENCOUNTER → 2022-04-13 13:54 | Outpatient (BNVA) | payer OTHER, MEDICARE, SELFPAY | PROVIDERS: PCP Emergency Medicine Emergency Medical Services; Visit Provider Podiatrist Foot & Ankle Surgery | DX: I73.9 Peripheral vascular disease, unspecified (principal); L97.519 Non-pressure chronic ulcer of other part of right foot with unspecified severity | CPT/HCPCS: 99204 ==

== ENCOUNTER 2022-04-16 10:44 | Outpatient (CLI) | payer OTHER, SELFPAY ==
--- NOTE | 2022-04-16 12:00 | CT_ITS ---
WS: [id number] CT ABDOMEN AND PELVIS WITH CONTRAST HISTORY: abd pain TECHNIQUE: Imaging performed of the abdomen and pelvis with IV contrast. Single phase imaging of the abdomen. Coronal and sagittal reformats are submitted. All CT scans at [facility] use at [facility] one of these dose optimization techniques: automated exposure control; mA and/or kV adjustment per patient size (includes targeted exams where dose is matched to clinical indication); or iterative re construction. IV CONTRAST: Omnipaque 350; 95 mL IV. Oral contrast: Yes. DLP: 834.60 mGy.cm COMPARISON: None available. Lower thorax: Mild dependent changes at the lung bases. Oral contrast within the distal esophagus may be from reflux or incomplete clearing. Moderate cardiomegaly. No hiatal hernia. Liver/biliary system: Normal size with no intrahepatic dilatation. Gallbladder: Normal. No gallstones or wall thickening. No pericholecystic fluid. Pancreas: Atrophied. No duct dilatation or mass. Spleen: Normal size spleen. No mass or infarct. Adrenal glands: Normal. Right kidney: Mild cortical thinning. No obstruction. Vascular calcifications. 2 small to characteriz e hypodensity mid kidney. Left kidney: Mild cortical thinning. No solid mass or obstruction. Vascular calcifications. Aorta: Extensive calcification and thrombus within the abdominal aorta. Origin and proximal celiac ax is is not enhancing. Similar to the prior study. Small vessel collateral feeding the gastric and sple amado arteries as they are enhancing. Atherosclerotic plaque in the SMA. Intimal thickening continues i nto the iliac arteries bilaterally. RIGHT femoral bypass graft is identified. There is no enhancement on today's examination which is new since 12/12/2019. Superficial femoral arteries both appear occlud ed. Lymphadenopathy: None. Free fluid: None. GI tract: Stomach is distended with oral contrast. There is marked fecal retention throughout the col on. No ischemic changes or obstruction. Abdominal wall: Unremarkable abdominal wall. No hernia. Pelvis: Well-distended urinary bladder. No free fluid in the pelvis. Prostate gland calcification. Bones: Bilateral femoral head osteonecrosis. CT/CT abdomen pelvis w con* [id number] IMPRESSION: 1. Severe diffuse fecal retention and constipation. 2. Patient has significant atherosclerotic plaque involving the aorta and mese nteric arteries. Proximal celiac axis appears occluded. Similar to 12/12/2019. 3. RIGHT femoral bypass graft seen over the RIGHT hip is occluded. New finding since 2019. No contrast enhancement in the superficial femoral arteries. Known extensive peripheral arterial disease. 4. Mild cardiomegaly. 5. No ascites. 6. No ischemic changes within the GI tract. 7. Marked bilateral femoral head osteonecrosis.
[2022-04-16] MEDS: iohexol 350 mg/mL 500 mL Btl (per mL) PO (12:18)
[2022-04-16] MEDS: iohexol 350 mg/mL 500 mL Btl (per mL) IV (12:18)
== END 2022-04-16 10:45 | disposition home or self-care (01) ==
LOC: RAD 10:45
PROVIDERS: PCP Emergency Medicine Emergency Medical Services; Visit Provider Surgery
DX: R10.9 Unspecified abdominal pain (principal); K59.00 Constipation, unspecified; I70.0 Atherosclerosis of aorta; I51.7 Cardiomegaly
CPT/HCPCS: 74177; Q9967

== ENCOUNTER → 2022-04-19 13:31 | Outpatient (BNVA) | payer OTHER, SELFPAY | PROVIDERS: PCP Emergency Medicine Emergency Medical Services; Visit Provider Podiatrist Foot & Ankle Surgery | DX: I73.9 Peripheral vascular disease, unspecified (principal); L97.519 Non-pressure chronic ulcer of other part of right foot with unspecified severity | CPT/HCPCS: 99214 ==

== ENCOUNTER 2022-04-22 13:23 | Day surgery (SDC) | payer OTHER, SELFPAY ==
[2022-04-21 11:31] VITALS: BMI 19.3
[2022-04-22 14:08] VITALS: BP 168/69; PULSE 78; RESP 18; TEMP 36.6; O2SAT 100
[2022-04-22] MEDS: gabapentin 300 mg Capsule PO (14:28)
[2022-04-22] MEDS: CELEcoxib 200 mg Capsule 400 MG PO (14:28)
--- NOTE | 2022-04-22 14:29 | ANES.PREANE2 ---
Pre-Anesthetic Assessment Height/Weight: Height 1.65 m Weight 52.617 kg Temp Pulse Resp BP Pulse Ox O2 Del Method 97.9 F 78 18 168/69 100 04/22/22 14:08 04/22/22 14:08 04/22/22 14:08 04/22/22 14:08 04/22/22 14:08 04/22/22 14:11 Preop Diagnosis: Right hallux gangrene Operation Date: 04/22/22 15:00 Proposed Procedures p Right hallux amputation CPT 32368 I96(Right) - Luiz Chopra DPM Familial anesthetic complications: none Was Beta Ana taken within 24 hours: Yes Was Clonidine taken within 24 hours: N/A Last intake: Intake Last Liquid Date 04/21/22 Last Liquid Time 23:30 Last Solid Date 04/21/22 Last Solid Time 19:00 Social Tobacco and No alcohol Exam alert, oriented x 3, clear to auscultation bilaterally and regular rate & rhythm Airway Submandibular: within normal limits Cervical ROM: within normal limits Mallampati: Class II Dentition: false Pulmonary Chronic Obstructive Pulmonary Disease CV/HEM Anemia, Coronary Artery Disease, Hypertension and Peripheral Vascular Disease Neuropsych Cerebrovascular Accident and Deficit (left) Anesthetic Plan ASA status: 3 Anesthesia: MAC Medications/Allergies Home Medications Medication Instructions Recorded Confirmed Last Taken Type atenolol 50 mg tablet 50 mg PO DAILY 10/04/19 04/21/22 04/22/22 History atorvastatin 40 mg tablet 40 mg PO DAILY 10/04/19 04/21/22 04/21/22 History cholecalciferol (vitamin D3) 50 50 mcg PO DAILY 10/04/19 04/21/22 04/21/22 History mcg (2,000 unit) chewable tablet gabapentin 800 mg tablet 800 mg PO TID 10/04/19 04/21/22 04/22/22 History tramadol 50 mg tablet 50 mg PO Q6H PRN Pain 10/04/19 04/21/22 04/21/22 History amlodipine 10 mg tablet 10 mg PO DAILY 02/25/20 04/21/22 04/22/22 History finasteride 5 mg tablet 5 mg PO DAILY 03/10/22 04/21/22 04/21/22 History psyllium husk 0.52 gram capsule 0.52 g PO DAILY 03/10/22 04/21/22 04/21/22 History (Daily Fiber) amoxicillin 875 mg-potassium 1 tab PO Q12H Soft Tissue Skin 04/13/22 04/21/22 04/21/22 Rx clavulanate 125 mg tablet Infection 10 days #20 tabs Allergies Allergy/AdvReac Type Severity Reaction Status Date / Time No Known Allergies Allergy Verified 04/21/22 11:23 PFSH Anesthesia Medical History Bilateral carotid artery disease CVA (cerebral vascular accident) 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
[2022-04-22] MEDS: sodium chloride 0.9% 1,000 ML 30 ML IV (14:37)
--- NOTE | 2022-04-22 15:02 | W.PM.OPSUD ---
Surgery/Procedure H&P Update DATE OF PROCEDURE: April 22, 2022 DATE H&P PERFORMED: 04/19/22 CHANGES TO PREVIOUS DOCUMENTATION: no changes PREOP DIAGNOSIS: Right hallux gangrene PLANNED PROCEDURE: Operation Date: 04/22/22 15:00 Proposed Procedures p Right hallux amputation CPT 50867 I96(Right) - Luiz Chopra DPM
[2022-04-22] MEDS: ceFAZolin 2,000 MG in sodium chloride 0.9% (plus) 50 ML 100 MG IV (15:14)
[2022-04-22 16:00] VITALS: BP 126/60; PULSE 61; RESP 10; TEMP 37.1; O2SAT 99
[2022-04-22 16:05] VITALS: BP 137/63; PULSE 62; RESP 16; O2SAT 97
--- NOTE | 2022-04-22 16:06 | ANE.PACU2 ---
Inpatient post-anesthesia follow up: Airway intact: Yes Vital signs: Temperature 97.9 F Pulse Rate 78 Respiratory Rate 18 Blood Pressure 168/69 Pulse Oximetry 100 Oxygen Delivery Me thod Room Air Oxygen Flow Rate 6 Fraction of Inspir ed Oxygen Hydration adequate: Yes Nausea and vomiting: No Pain level: 1 Mental status: Baseline
[2022-04-22 16:10] VITALS: BP 145/64; PULSE 65; RESP 18; TEMP 36.4; O2SAT 96
[2022-04-22 16:15] VITALS: BP 147/62; PULSE 63; RESP 18; TEMP 36.4; O2SAT 95
[2022-04-22 16:40] VITALS: BP 153/57; PULSE 65; RESP 18; TEMP 36.6; O2SAT 96
--- NOTE | 2022-04-24 12:23 | P.OP_ITS ---
Operative Report Date of procedure: April 22, 2022 Pre-op diagnosis: Preop Diagnosis Right hallux gangrene Post-op diagnosis: Same Post-op findings: Gangrene of right hallux to just proximal to the hallux interphalangeal joint. Adequate blood flow to the level of metatarsophalangeal joint for skin closure. No evidence of infection or osteomyelitis at the level of the first metatarsophalangeal joint Procedure done: Right hallux amputation CPT 62626 Implants: None Specimens removed/disposition: Right hallux Pathology: Right hallux sent to pathology as surgical specimen Surgeon: Dr. Luiz Chopra, D.P.M. Estimated blood loss: Less than 10 cc No tourniquet Complications: None Findings: See above Procedure: Patient is a 66-year-old male that has a history of right hallux gangrene. The patient has had the aforementioned chief complaint for some time. Conservative treatment measures have been attempted and the patient has opted for surgical intervention at this time. A lengthy discussion regarding the procedure, including risks and complications has been had with the patient and is noted in the recent clinic note. Written and verbal consent have been obtained. All patient questions have been answered to the patient?s satisfaction. No written or verbal guarantees have been given or implied. The patient has been NPO since midnight. The history has been reviewed and the history and physical is current. The signed consent was confirmed and placed in the patient chart. Patient imaging has been reviewed and is consistent with the diagnosis. Under mild sedation, the patient was brought into the operating room and placed on the table in the supine position. IV antibiotics were given by the anesthesia team as preoperative surgical prophylaxis. IV sedation was then performed by the anesthesia team. A local field block was then performed using 0.5% Marcaine plain. The right lower extremity is then prepped and draped in usual fashion. After prep, the following procedure was then performed. Attention was directed to the right hallux where a fishmouth incision was made using a #15 blade just proximal to the level of the gangrene at the hallux interphalangeal joint. Dissection was carried down through subcutaneous and superficial fascia to the level of bone. Dissection was carried proximally to the level of first metatarsophalangeal joint right hallux was disarticulated and passed from the operative field to be sent as specimen. The cartilage of the first metatarsal head was noted to be intact with no signs of erosion or infection. No purulence or abscess was visualized at this level. Site was irrigated with copious months of sterile saline before attention was directed to closure. Skin was closed with 4-0 nylon in simple interrupted fashion. The incision site was dressed with Xeroform, 4 x 4 gauze, Kerlix and Ephraim wrap. The patient tolerated the procedure and anesthesia well and without complication. The patient was transported from the operating room to the recovery room with vital signs stable and vascular status intact to all digits of the right foot. The patient was given both written and verbal instructions to remain weightbearing as tolerated to the operative extremity in postop shoe, to keep dressings/splint clean, dry and intact and to take pain medication as directed. The patient will follow-up in the outpatient setting at their sched uled appointment. The patient was discharged with my personal number and was instructed to call if any questions or issues should arise. They were discharged home once anesthesia criteria was met.
== END 2022-04-22 17:03 | disposition home or self-care (01) ==
PROVIDERS: PCP Emergency Medicine Emergency Medical Services; Visit Provider Podiatrist Foot & Ankle Surgery
PROC: (CPT 28820; principal; 2022-04-22 14:50)
DX: I96 Gangrene, not elsewhere classified (principal); J44.9 Chronic obstructive pulmonary disease, unspecified; I25.10 Atherosclerotic heart disease of native coronary artery without angina pectoris; I10 Essential (primary) hypertension; Z86.73 Personal history of transient ischemic attack (TIA), and cerebral infarction without residual deficits; Z95.5 Presence of coronary angioplasty implant and graft; Z95.1 Presence of aortocoronary bypass graft; F17.210 Nicotine dependence, cigarettes, uncomplicated
CPT/HCPCS: 28820; 88305; 88311; J0690; J2704; J3010; J3490; J7030

== ENCOUNTER 2022-04-28 22:29 | Emergency (ER) | payer OTHER, SELFPAY ==
[2022-04-28 22:31] VITALS: BP 114/55; PULSE 47; RESP 17; TEMP 36.6; O2SAT 98; BMI 19.3
--- NOTE | 2022-04-28 22:33 | CTR_ITS ---
PROCEDURE INFORMATION: Exam: CT Cervical Spine Without Contrast Exam date and time: 04/28/2022 10:47 PM Age: 66 years old Clinical indication: Injury or trauma; Fall; Blunt trauma; Prior surgery; Surgery type: Endarterectomy. Cabg; Patient HX: Patient fell at home face first into entertainment center. Lac to forehead with abrasion to left orbit. TECHNIQUE: Imaging protocol: Computed tomography of the cervical spine without contrast. Radiation optimization: All CT scans at this facility use at least one of these dose optimization techniques: automated exposure control; mA and/or kV adjustment per patient size (includes targeted exams where dose is matched to clinical indication); or iterative reconstruction. COMPARISON: CT cervical spin wo con* [id number] 04/18/2020 8:38 PM RADIATION DOSE METRICS: Total DLP (mGy-cm): 137.87 FINDINGS: Bones/joints: The patient is tilted. Suspected trace retrolisthesis of C3 on C4. The vertebral body heights are maintained. No evidence of acute fractures. Congenital nonfusion of the posterior arch of C1. The vertebral body heights are maintained. No evidence of acute fractures. Lungs: Paraseptal emphysema is noted. Minimal scarring in the left lung apex is noted. Soft tissues: There are atherosclerotic calcifications of the carotid bifurcations.. CT/CT cervical spin wo con* [id number] IMPRESSION: No evidence of acute fracture in the cervical spine.
--- NOTE | 2022-04-28 22:33 | CTR_ITS ---
PROCEDURE INFORMATION: Exam: CT Head Without Contrast Exam date and time: 04/28/2022 10:41 PM Age: 66 years old Clinical indication: Injury or trauma; Fall; Blunt trauma (contusions or hematomas); Patient HX: Patient fell at home face first into [employer]. Lac to forehead with abrasion to left orbit. ; Additional info: Head injury TECHNIQUE: Imaging protocol: Computed tomography of the head without contrast. Radiation optimization: All CT scans at this facility use at least one of these dose optimization techniques: automated exposure control; mA and/or kV adjustment per patient size (includes targeted exams where dose is matched to clinical indication); or iterative reconstruction. COMPARISON: CT head wo con* [id number] 04/18/2020 8:32 PM RADIATION DOSE METRICS: Total DLP (mGy-cm): 973.68 FINDINGS: Brain: No evidence of acute intracranial hemorrhage. Large cystic encephalomalacia in the right frontal temporal region, involving the right insula, the right basal ganglia, the outer right thalamus, and the right frontotemporal regions compatible with chronic right MCA territory infarction. Additional small chronic infarcts in the bilateral basal ganglia, the bilateral thalami, and the periventricular white matter. Chronic infarction in the left parietal and left parasagittal frontal lobes. Cerebral ventricles: Moderate cerebral and cerebellar volume loss and ex vacuo dilation of the ventricles.. Paranasal sinuses: Visualized sinuses are unremarkable. No fluid levels. Mastoid air cells: Visualized mastoid air cells are well aerated. Bones/joints: Unremarkable. No acute fracture. Soft tissues: Unremarkable. CT/CT head wo con* [id number] IMPRESSION: No acute intracranial hemorrhage, mass effect, or midline shift.
--- NOTE | 2022-04-28 22:35 | ED_ITS ---
HPI - Fall General: Chief Complaint: Fall Stated Complaint: Fall Time Seen by Provider: 04/28/22 22:31 Source: patient and EMS Mode of arrival: EMS Limitations: no limitations History of Present Illness: 66-year-old male states he tripped and fell roughly an hour ago he [place] hit his head he does have a head laceration states he has a mild headache and some mild neck pain he rates a 2 out of 10 he denies any other injuries denies any extremity pain. He is not on any blood thinners. He had no loss conscious. Associated symptoms-after fall: Reports headache(s) and neck pain; Denies abdominal pain or chest pain Review of Systems Const: Denies: fever(s), chills, body aches or change in appetite Eyes: Denies: blurry vision or eye discomfort ENMT: Denies: throat pain or dental pain Card: Denies: chest pain Resp: Denies: dyspnea GI: Denies: abdominal pain, nausea, vomiting or diarrhea : Denies: dysuria Musc: Reports: neck pain Skin/Breast: Denies: rash Neuro: Reports: headache(s) Psych: Denies: depression Spenser/Lymph: Denies: easy bruising All/Imm: Denies: urticaria PFSH ED PFSH: Medical History Bilateral carotid artery disease CVA (cerebral vascular accident) 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 Hypertension Peripheral Vascular Disease Surgical History History of heart artery stent Hx of CABG S/P femoral-femoral bypass surgery Family History Denies family history of CAD (coronary artery disease) Social History Smoking and tobacco status: current every day smoker Alcohol intake: former Physical Exam Const: COMMON NORMALS: no acute distress, patient oriented x3 and healthy appearing HENMT: OTHER: 4cm laceration to forehead Eye: COMMON NORMALS: Equal, round and reactive pupils present and EOMs intact bilaterally PUPIL: Yes Equal, round and reactive pupils present Neck/C-Spine: COMMON NORMALS: full ROM and supple Chest: COMMONS NORMALS: normal inspection of the chest and normal palpation of entire chest wall Resp: COMMON NORMALS: normal respiratory effort, No retractions, No use of accessory muscles and clear to auscultation bilaterally AUSCULTATION: clear to auscultation bilaterally Cardio: COMMON NORMALS: regular rate, regular rhythm and No murmurs present (Cardio) RATE: regular rate RHYTHM: regular rhythm GI: COMMON NORMALS: Normal to inspection, nondistended, normoactive bowel sounds present, Soft to palpation, non-tender and no masses PALPATION: Yes Soft to palpation Extremity: COMMON NORMALS: normal to inspection and full ROM Neuro: COMMON NORMALS: patient oriented x3, moves all extremities and no focal motor deficits Psych: COMMON NORMALS: mental status grossly normal, Normal thought process present and cooperative THOUGHT PROCESS: Normal thought process present Skin: COMMON NORMALS: no rashes or lesions noted and no wounds GENERAL SKIN EXAM: no rashes or lesions noted Procedures Laceration Laceration 1: Site: face Size (cm): 3 Description: linear Depth: simple, single layer Pre-repair: irrigated extensively Skin layer closed with: other (dermabond) Course Vital Signs: Vital signs: Vital Signs Temperature 97.9 F 04/28/22 22:31 Pulse Rate 46 L 04/28/22 22:56 Respiratory Rate 17 04/28/22 22:56 Blood Pressure 114/55 04/28/22 22:56 Pulse Oximetry 94 04/28/22 22:56 Oxygen Delivery Me thod 04/28/22 22:31 MDM - Fall Medical Decision Making Patient presents here with head laceration from a fall with superficial nature was able to be repaired with adhesive glue patient stable for discharge his CTs are normal he is to follow-up with PCP and return if worsening. Lab Data Radiology Impressions Cervical Spine CT 04/28/22 22:33 IMPRESSION: No evidence of acute fracture in the cervical spine. Head CT 04/28/22 22:33 IMPRESSION: No acute intracranial hemorrhage, mass effect, or midline shift. Face CT 04/28/22 22:42 IMPRESSION: No evidence of acute facial bone fractures. Discharge Plan Discharge Patient Disposition: Home Clinical Impression: Fall, Laceration of head Condition: Stable Prescriptions: No Action atenolol 50 mg tablet 50 mg PO DAILY atorvastatin 40 mg tablet 40 mg PO DAILY cholecalciferol (vitamin D3) 50 mcg (2,000 unit) tablet,chewable 50 mcg PO DAILY gabapentin 800 mg tablet 800 mg PO TID tramadol 50 mg tablet 50 mg PO Q6H PRN (Reason: Pain) amoxicillin-pot clavulanate 875-125 mg tablet 1 tab PO Q12H 10 Days Qty: 20 0RF Rx Instructions: 1 tablet by mouth every 12 hours until gone psyllium husk [Daily Fiber] 0.52 gram capsule 0.52 g PO DAILY finasteride 5 mg tablet 5 mg PO DAILY amlodipine 10 mg Tablet 10 mg PO DAILY Discharge Orders: Discharge ED (Routine); Ordered 04/28/22 Ordered By: Ayaka Reyna Referrals: Nikolay Briggs, [Primary Care Provider] - Discharge Diet: Advance as tolerated Discharge Activity: Resume usual activity Patient Instructions: Skin Adhesive Care (ED), Head Laceration (ED) Coding Level of Care Code ED Marketing Technologist for Armin Fwd Exam Comprehensive
--- NOTE | 2022-04-28 22:42 | CTR_ITS ---
PROCEDURE INFORMATION: Exam: CT Maxillofacial Without Contrast Exam date and time: 04/28/2022 10:44 PM Age: 66 years old Clinical indication: Injury or trauma; Fall; Blunt trauma (contusions or hematomas); Orbit/periorbital; Patient HX: Patient fell at home face first [place]. Lac to forehead with abrasion to left orbit. ; Additional info: Blunt orbital injury from fall TECHNIQUE: Imaging protocol: Computed tomography of the face without contrast. Radiation optimization: All CT scans at this facility use at least one of these dose optimization techniques: automated exposure control; mA and/or kV adjustment per patient size (includes targeted exams where dose is matched to clinical indication); or iterative reconstruction. COMPARISON: CT facial bones wo con* [id number] 04/18/2020 8:35 PM RADIATION DOSE METRICS: Total DLP (mGy-cm): 601.08 FINDINGS: Orbital cavities: Orbits are normal. Globes are unremarkable. Bones/joints: Congenital nonfusion of the posterior arch of C1. The patient is edentulous.. Paranasal sinuses: Normal. No air-fluid levels. Soft tissues: Unremarkable. CT/CT facial bones wo con* [id number] IMPRESSION: No evidence of acute facial bone fractures.
[2022-04-28 22:56] VITALS: BP 114/55; PULSE 46; RESP 17; O2SAT 94
--- NOTE | 2022-04-29 00:04 | PC.NURSE ---
informed nurse of black tar like stool when cleaning the patient.
[2022-04-29 01:34] VITALS: BP 142/65; PULSE 51; RESP 18; O2SAT 96
== END 2022-04-29 01:38 | disposition home or self-care (01) ==
PROVIDERS: Emergency Provider Emergency Medicine; PCP Emergency Medicine Emergency Medical Services
DX: S01.81XA Laceration without foreign body of other part of head, initial encounter (principal); F17.210 Nicotine dependence, cigarettes, uncomplicated; Z86.73 Personal history of transient ischemic attack (TIA), and cerebral infarction without residual deficits; I10 Essential (primary) hypertension; W01.190A Fall on same level from slipping, tripping and stumbling with subsequent striking against furniture, initial encounter
CPT/HCPCS: 12013; 70450; 70486; 72125; 99284

== ENCOUNTER → 2022-04-30 08:38 | Outpatient (BNVA) | payer OTHER, SELFPAY | PROVIDERS: PCP Emergency Medicine Emergency Medical Services; Visit Provider Podiatrist Foot & Ankle Surgery | DX: Z98.890 Other specified postprocedural states (principal); I73.9 Peripheral vascular disease, unspecified | CPT/HCPCS: 99024 ==

== ENCOUNTER → 2022-05-11 11:13 | Outpatient (BNVA) | payer OTHER, SELFPAY | PROVIDERS: PCP Emergency Medicine Emergency Medical Services; Visit Provider Podiatrist Foot & Ankle Surgery | DX: Z98.890 Other specified postprocedural states (principal); I73.9 Peripheral vascular disease, unspecified | CPT/HCPCS: 99024 ==

== ENCOUNTER → 2022-05-19 13:31 | Outpatient (BNVA) | payer OTHER, SELFPAY | PROVIDERS: PCP Emergency Medicine Emergency Medical Services; Visit Provider Podiatrist Foot & Ankle Surgery | DX: I73.9 Peripheral vascular disease, unspecified (principal); T81.31XA Disruption of external operation (surgical) wound, not elsewhere classified, initial encounter; Z98.890 Other specified postprocedural states; Y83.3 Surgical operation with formation of external stoma as the cause of abnormal reaction of the patient, or of later complication, without mention of misadventure at the time of the procedure | CPT/HCPCS: 11042 ==

== ENCOUNTER → 2022-05-31 13:38 | Outpatient (BNVA) | payer OTHER, SELFPAY | PROVIDERS: PCP Emergency Medicine Emergency Medical Services; Visit Provider Podiatrist Foot & Ankle Surgery | DX: Z98.890 Other specified postprocedural states (principal); I73.9 Peripheral vascular disease, unspecified; T81.31XA Disruption of external operation (surgical) wound, not elsewhere classified, initial encounter; Y83.8 Other surgical procedures as the cause of abnormal reaction of the patient, or of later complication, without mention of misadventure at the time of the procedure | CPT/HCPCS: 11042 ==

== ENCOUNTER → 2022-06-11 14:39 | Outpatient (BNVA) | payer OTHER, SELFPAY | PROVIDERS: PCP Emergency Medicine Emergency Medical Services; Visit Provider Podiatrist Foot & Ankle Surgery | DX: Y83.3 Surgical operation with formation of external stoma as the cause of abnormal reaction of the patient, or of later complication, without mention of misadventure at the time of the procedure (principal); Z89.411 Acquired absence of right great toe; T81.31XA Disruption of external operation (surgical) wound, not elsewhere classified, initial encounter; Z98.890 Other specified postprocedural states; I73.9 Peripheral vascular disease, unspecified | CPT/HCPCS: 11042 ==

== ENCOUNTER → 2022-06-18 13:12 | Outpatient (BNVA) | payer OTHER, SELFPAY | PROVIDERS: PCP Emergency Medicine Emergency Medical Services; Visit Provider Podiatrist Foot & Ankle Surgery | DX: Z98.890 Other specified postprocedural states (principal); I73.9 Peripheral vascular disease, unspecified; T81.31XA Disruption of external operation (surgical) wound, not elsewhere classified, initial encounter; Y83.3 Surgical operation with formation of external stoma as the cause of abnormal reaction of the patient, or of later complication, without mention of misadventure at the time of the procedure | CPT/HCPCS: 99213 ==

== ENCOUNTER → 2022-07-05 15:12 | Outpatient (BNVA) | payer OTHER, SELFPAY | PROVIDERS: PCP Emergency Medicine Emergency Medical Services; Visit Provider Thoracic Surgery (Cardiothoracic Vascular Surgery) | DX: T87.81 Dehiscence of amputation stump (principal); Y83.8 Other surgical procedures as the cause of abnormal reaction of the patient, or of later complication, without mention of misadventure at the time of the procedure; L89.892 Pressure ulcer of other site, stage 2; I73.9 Peripheral vascular disease, unspecified; Z89.411 Acquired absence of right great toe | CPT/HCPCS: 11042; 87070; 87176; 87205; 99213 ==

== ENCOUNTER 2022-07-08 14:33 | Outpatient (CLI) | payer OTHER, SELFPAY ==
--- NOTE | 2022-07-08 14:30 | USCV_ITS ---
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 There is an old graft in the thigh that is occluded. Right DPA is occluded. Possible iliofemoral bypass graft on the right side appears to be patent. [place] iliac artery appears to be occluded. Moderate irregular plaques were noted at the distal anastomosis site. The proximal superficial femoral artery was found to be patent with moderate plaque. The distal superficial artery and the popliteal arteries were found to have moderate diffuse plaques. No Doppler flow signals were noted in the dorsalis pedis artery on the right side. Resting ANAMARIA 0.7. Monophasic and continuous Doppler waveform in the distal superficial femoral artery CONCLUSIONS 1. 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 Moderate diffuse plaques at the distal anastomotic site and in the common femoral artery. Occluded dorsalis pedis artery on the right side 2. Moderate diffuse plaque in the proximal superficial femoral artery with a total occlusion of the mid segment. Reconstitution of the distal superficial femoral and popliteal artery through collaterals. Diffuse plaque in the posterior tibial artery. 3. Resting ANAMARIA of 0.7. Compared to the study from 07/10/2019, this is a significant drop in the resting ANAMARIA Dr Cassandra An MD [facility] (Electronically Signed) Final Date: 09 July 2022 12:21 S
== END 2022-07-08 14:34 | disposition home or self-care (01) ==
PROVIDERS: PCP Emergency Medicine Emergency Medical Services; Visit Provider Thoracic Surgery (Cardiothoracic Vascular Surgery)
DX: I73.9 Peripheral vascular disease, unspecified (principal); I74.5 Embolism and thrombosis of iliac artery
CPT/HCPCS: 93926

== ENCOUNTER → 2022-07-12 14:43 | Outpatient (BNVA) | payer OTHER, SELFPAY | PROVIDERS: PCP Emergency Medicine Emergency Medical Services; Visit Provider Thoracic Surgery (Cardiothoracic Vascular Surgery) | DX: T87.81 Dehiscence of amputation stump (principal); Y83.8 Other surgical procedures as the cause of abnormal reaction of the patient, or of later complication, without mention of misadventure at the time of the procedure; Z89.421 Acquired absence of other right toe(s); I96 Gangrene, not elsewhere classified; L89.892 Pressure ulcer of other site, stage 2 | CPT/HCPCS: 11042; 97597 ==

== ENCOUNTER → 2022-07-19 15:59 | Outpatient (BNVA) | payer OTHER, SELFPAY | PROVIDERS: PCP Emergency Medicine Emergency Medical Services; Visit Provider Thoracic Surgery (Cardiothoracic Vascular Surgery) | DX: T87.81 Dehiscence of amputation stump (principal); Y83.8 Other surgical procedures as the cause of abnormal reaction of the patient, or of later complication, without mention of misadventure at the time of the procedure; Z89.421 Acquired absence of other right toe(s); I96 Gangrene, not elsewhere classified; L89.892 Pressure ulcer of other site, stage 2 | CPT/HCPCS: 11042 ==

== ENCOUNTER → 2022-07-26 16:00 | Outpatient (BNVA) | payer OTHER, SELFPAY | PROVIDERS: PCP Emergency Medicine Emergency Medical Services; Visit Provider Thoracic Surgery (Cardiothoracic Vascular Surgery) | DX: T87.81 Dehiscence of amputation stump (principal); Y83.8 Other surgical procedures as the cause of abnormal reaction of the patient, or of later complication, without mention of misadventure at the time of the procedure; Z89.421 Acquired absence of other right toe(s); L89.892 Pressure ulcer of other site, stage 2 | CPT/HCPCS: 11042; 87070; 87077; 87176; 87186; 87205 ==

== ENCOUNTER → 2022-08-02 16:33 | Outpatient (BNVA) | payer OTHER, SELFPAY | PROVIDERS: PCP Emergency Medicine Emergency Medical Services; Visit Provider Thoracic Surgery (Cardiothoracic Vascular Surgery) | DX: T87.81 Dehiscence of amputation stump (principal); Y83.8 Other surgical procedures as the cause of abnormal reaction of the patient, or of later complication, without mention of misadventure at the time of the procedure; Z89.421 Acquired absence of other right toe(s); Z09 Encounter for follow-up examination after completed treatment for conditions other than malignant neoplasm | CPT/HCPCS: 11042; A6212 ==

== ENCOUNTER 2022-08-06 15:24 | Outpatient (CLI) | payer OTHER, SELFPAY ==
--- NOTE | 2022-08-06 15:52 | XR_ITS ---
WS: [id number] EXAMINATION: XR foot RT min 3V* [id number] REASON FOR EXAM: dehisced wound; bone exposure; rule out osteomyelitis COMPARISON: 06/10/2021 ORDER DATE: 08/06/2022 3:53 PM TECHNIQUE: 3 views of the right foot were obtained. X-RAY FINDINGS: There are no fractures or dislocations. Since the last study there has been amputation of the great t oe at the MTP joint with the metatarsal head demonstrating spotty demineralization and some medial co rtical erosion. There is surrounding soft tissue thickening/possible edema. Chronic erosive change se en in the proximal second and third metatarsals with hammertoe changes in the toes worse in the secon d third digits. On the lateral projection there is a possible soft tissue gas collection immediately distal to the first metatarsal head. XR/XR foot RT min 3V* [id number] IMPRESSION: Changes are concerning for possible acute cellulitis and/or developing abscess near the site of amputation with osseous changes in the first metatarsal head s uspicious for osteomyelitis. Clinical correlation suggested for consideration o f additional imaging or laboratory correlation..
== END 2022-08-06 15:25 | disposition home or self-care (01) ==
LOC: RAD 15:29
PROVIDERS: PCP Emergency Medicine Emergency Medical Services; Visit Provider Nurse Practitioner Family
DX: T81.31XA Disruption of external operation (surgical) wound, not elsewhere classified, initial encounter (principal); X58.XXXA Exposure to other specified factors, initial encounter
CPT/HCPCS: 73630

== ENCOUNTER → 2022-08-09 15:14 | Outpatient (BNVA) | payer OTHER, SELFPAY | PROVIDERS: PCP Emergency Medicine Emergency Medical Services; Visit Provider Thoracic Surgery (Cardiothoracic Vascular Surgery) | DX: T87.81 Dehiscence of amputation stump (principal); Y83.8 Other surgical procedures as the cause of abnormal reaction of the patient, or of later complication, without mention of misadventure at the time of the procedure; Z89.421 Acquired absence of other right toe(s) | CPT/HCPCS: 11042 ==

== ENCOUNTER → 2022-08-16 13:47 | Outpatient (BNVA) | payer OTHER, SELFPAY | PROVIDERS: PCP Emergency Medicine Emergency Medical Services; Visit Provider Thoracic Surgery (Cardiothoracic Vascular Surgery) | DX: T87.81 Dehiscence of amputation stump (principal); Y83.8 Other surgical procedures as the cause of abnormal reaction of the patient, or of later complication, without mention of misadventure at the time of the procedure; Z89.421 Acquired absence of other right toe(s) | CPT/HCPCS: 11042; A6021 ==

== ENCOUNTER → 2022-08-23 13:06 | Outpatient (BNVA) | payer OTHER, SELFPAY | PROVIDERS: PCP Emergency Medicine Emergency Medical Services; Visit Provider Thoracic Surgery (Cardiothoracic Vascular Surgery) | DX: T87.53 Necrosis of amputation stump, right lower extremity (principal); T87.81 Dehiscence of amputation stump; Y83.8 Other surgical procedures as the cause of abnormal reaction of the patient, or of later complication, without mention of misadventure at the time of the procedure; Z89.411 Acquired absence of right great toe | CPT/HCPCS: 11042; A6021 ==

== ENCOUNTER → 2022-08-30 13:49 | Outpatient (BNVA) | payer OTHER, SELFPAY | PROVIDERS: PCP Emergency Medicine Emergency Medical Services; Visit Provider Thoracic Surgery (Cardiothoracic Vascular Surgery) | DX: T87.81 Dehiscence of amputation stump (principal); Y83.8 Other surgical procedures as the cause of abnormal reaction of the patient, or of later complication, without mention of misadventure at the time of the procedure; Z89.421 Acquired absence of other right toe(s) | CPT/HCPCS: 11042; A6021 ==

== ENCOUNTER → 2022-09-06 13:50 | Outpatient (BNVA) | payer OTHER, SELFPAY | PROVIDERS: PCP Emergency Medicine Emergency Medical Services; Visit Provider Thoracic Surgery (Cardiothoracic Vascular Surgery) | DX: T87.81 Dehiscence of amputation stump (principal); Y83.8 Other surgical procedures as the cause of abnormal reaction of the patient, or of later complication, without mention of misadventure at the time of the procedure; Z89.421 Acquired absence of other right toe(s) | CPT/HCPCS: 97597; A6219 ==

== ENCOUNTER → 2022-09-20 13:04 | Outpatient (BNVA) | payer OTHER, SELFPAY | PROVIDERS: PCP Emergency Medicine Emergency Medical Services; Visit Provider Nurse Practitioner Family | DX: T81.31XD Disruption of external operation (surgical) wound, not elsewhere classified, subsequent encounter (principal); Y83.8 Other surgical procedures as the cause of abnormal reaction of the patient, or of later complication, without mention of misadventure at the time of the procedure | CPT/HCPCS: 11042; A6021; A6219 ==

== ENCOUNTER → 2022-10-08 15:15 | Outpatient (BNVA) | payer OTHER, SELFPAY | PROVIDERS: PCP Emergency Medicine Emergency Medical Services; Visit Provider Thoracic Surgery (Cardiothoracic Vascular Surgery) | DX: T81.31XD Disruption of external operation (surgical) wound, not elsewhere classified, subsequent encounter (principal); Y83.8 Other surgical procedures as the cause of abnormal reaction of the patient, or of later complication, without mention of misadventure at the time of the procedure | CPT/HCPCS: 97597 ==

== ENCOUNTER → 2022-10-18 13:38 | Outpatient (BNVA) | payer OTHER, SELFPAY | PROVIDERS: PCP Emergency Medicine Emergency Medical Services; Visit Provider Thoracic Surgery (Cardiothoracic Vascular Surgery) | DX: T81.31XD Disruption of external operation (surgical) wound, not elsewhere classified, subsequent encounter (principal); Y83.8 Other surgical procedures as the cause of abnormal reaction of the patient, or of later complication, without mention of misadventure at the time of the procedure | CPT/HCPCS: 99212 ==

== ENCOUNTER 2022-11-05 10:25 | Outpatient (CLI) | payer OTHER, SELFPAY ==
[2022-11-05 10:45] VITALS: BMI 19.3
--- NOTE | 2022-11-05 10:51 | NMCV_ITS ---
NM arlene perf SPECT r/s* [id number] Parminder Obrien Age: 66 Gender: M : 1955 Exam Date: 11/05/2022 10:51 Ordering Phys: Froy Steele MD Technologist: PABLO Green Exam Location: [facility] Indications: PRE OP, PERIPHERAL VASCULAR DISEASE, NICOTINE DEPENDENCE STRESS TEST Please see separate stress test report in [facility] for full findings IMAGE PROTOCOL Rest/Stress 1 Lexiscan Day Radiopharmaceutical Dose (mCi) Administration Site Administered by Rest: Tc-99m 10.1 IV Qasim Roman, MANAGER ASSISTED LIVING Sestamibi Stress:Tc-99m 33.0 IV Qasim Roman, MANAGER ASSISTED LIVING Sestamibi Rest: 05-Nov-2022 60 Discovery 630 Stress: 05-Nov-2022 30 Discovery 630 0.4mg Lexiscan. Supine position only as patient was unable to lay prone. SPECT RESULTS Technical Quality: Good Raw Data Analysis: Normal Image Corrections: No attenuation or motion correction applied Summed Stress Score: 17 Summed Rest Score: 17 Summed Difference Score: 1 PERFUSION FINDINGS Large size perfusion abnormality of severe severity of basal to apical inferior, basal to mid inferolateral and apical lateral wall on rest and stress images. FUNCTIONAL RESULTS (calculated via Gated SPECT) Stress Image LV EF (%): 36 Stress EDV (mL):119 TID: 1.12 Stress ESV (mL):76 FUNCTIONAL FINDINGS: The left ventricle is normal in size. Transient Ischemia Dilatation of 1.1. There is moderately reduced left ventricular global systolic function. The left ventricular ejection fraction is reduced with a value of 36%. There is moderately decreased wall thickening more so in inferior and lateral perry. IMPRESSIONS 1. Large size predominantly fixed perfusion abnormality of severe severity of basal to apical inferior, basal to mid inferolateral and apical lateral perry. 2. This likely represents old myocardial infarction in right coronary artery and circumflex artery territory. 3. The left ventricular ejection fraction is moderately reduced with a value of 36%. 4. There is moderately decreased wall thickening more so in inferior and lateral perry. 5. No significant coronary ischemia based on the study. Disha Powers MD (Electronically Signed) Final Date: 05 November 2022 14:24 S
--- NOTE | 2022-11-05 10:51 | ECG_ITS ---
[facility] Test Date: 2022-11-05 Pat Name: Parminder Obrien Department: Room: Gender: Male Supervisor Covering And Lining: Marla GonzalezMadelyn : 1955 Requested By: David Steele Order Number: [id number] Violeta MD: Disha Powers M.D. Interpretive Statements NAME OF STUDY: LEXISCAN SESTAMIBI STRESS TEST INDICATION: PAD, r/o CAD PROCEDURE: At the baseline, the blood pressure was 108/55 mm Hg with a heart rate of 49 bpm. The electrocardiogram showed sinus bradycardia, IVCD. ST and T wave changes consider anterolateral ischemia. The Lexiscan was infused over a period of 20 seconds. A total of 0.4 milligrams of Lexiscan was infused. The stress phase was continued for a total of 5 minutes. Heart rate at the end of the stress phase was 62 bpm with a blood pressure of 115/51 mmHg. The EKG at the peak infusion revealed sinus rhythm with no significant ST-T wave changes. Sestamibi was injected 20 seconds after the Lexiscan infusion. Blood pressure at the end of the recovery phase was 118/53 mmHg with a heart rate of 61 beats per minute. CONCLUSION: 1. No significant EKG changes with the LexiScan infusion. 2. No LexiScan induced chest pain or cardiac arrhythmia. 3. Normal blood pressure and heart rate response. 4. Sestamibi/sestamibi perfusion scan pending; see separate report. VASCULAR APPOINTMENT TUESDAY. NEEDING STRESS RESULTS SENT TO DR. DAVID STEELE [facility] CARDIOTHORACIC/VASCULAR Electronically Signed On 11-05-2022 14:28:20 CDT by Disha Powers M.D. [email or web address]
[2022-11-05] MEDS: regadenoson 0.4 Mg/5 ml Syringe IVP (12:08)
[2022-11-05 12:19] VITALS: BP 118/53; PULSE 62
== END 2022-11-05 10:26 | disposition home or self-care (01) ==
LOC: CDL 10:26
PROVIDERS: PCP Emergency Medicine Emergency Medical Services; Visit Provider Emergency Medicine Emergency Medical Services
DX: I73.9 Peripheral vascular disease, unspecified (principal); F17.200 Nicotine dependence, unspecified, uncomplicated
CPT/HCPCS: 36415; 78452; 93017; 96374; A9500; J2785

== ENCOUNTER → 2022-12-14 13:07 | Outpatient (BNVA) | payer OTHER, SELFPAY | PROVIDERS: PCP Emergency Medicine Emergency Medical Services; Visit Provider Podiatrist Foot & Ankle Surgery | DX: I73.9 Peripheral vascular disease, unspecified; L97.512 Non-pressure chronic ulcer of other part of right foot with fat layer exposed | CPT/HCPCS: 99213 ==

== ENCOUNTER → 2022-12-17 13:13 | Outpatient (BNVA) | payer OTHER, SELFPAY | PROVIDERS: PCP Emergency Medicine Emergency Medical Services; Visit Provider Thoracic Surgery (Cardiothoracic Vascular Surgery) | DX: I96 Gangrene, not elsewhere classified (principal); L95.9 Vasculitis limited to the skin, unspecified; L89.899 Pressure ulcer of other site, unspecified stage | CPT/HCPCS: 11044; 11047; 87070; 87077; 87176; 87186; 87205; 99213 ==

== ENCOUNTER → 2022-12-24 14:31 | Outpatient (BNVA) | payer OTHER, SELFPAY | PROVIDERS: PCP Emergency Medicine Emergency Medical Services; Visit Provider Thoracic Surgery (Cardiothoracic Vascular Surgery) | DX: M31.9 Necrotizing vasculopathy, unspecified (principal); I96 Gangrene, not elsewhere classified; L89.899 Pressure ulcer of other site, unspecified stage | CPT/HCPCS: 11044; 11047; 97597 ==

== ENCOUNTER 2022-12-30 16:12 | Outpatient (CLI) | payer OTHER, SELFPAY ==
--- NOTE | 2022-12-30 16:20 | XRR_ITS ---
PROCEDURE INFORMATION: Exam: XR Right Foot Exam date and time: 12/30/2022 4:26 PM Age: 67 years old Clinical indication: Condition or disease; Other: Open wound, turning black; Prior surgery; Surgery date: 6+ months; Surgery type: Toe amputation; Additional info: S81.801a - unspecified open wound, right lower leg, initi. . . TECHNIQUE: Imaging protocol: Radiologic exam of the right foot. Views: 3 or more views. COMPARISON: 1. CR XR foot RT min 3V* [id number] 08/06/2022 3:54 PM 2. CR (LOW EXM, ) 04/10/2022 3:39 PM FINDINGS: Bones/joints: Interval fragmentation at the medial small toe proximal phalanx base with corticated mildly displaced fragment. Redemonstrated postsurgical changes from prior right great toe amputation at the level of the MTP joint. The 1st metatarsal head now shows mild collapse and lucency at the medial aspect with erosive change and proximal peripheral sclerosis. There is new substantial medial subluxation at the 2nd toe PIP joint. There is also interval loss of the 3rd toe distal phalanx with erosion of the distal middle phalanx. There is lucency of the 4th toe distal phalanx similar to prior. Healed fracture remodeling of the distal fibular shaft as well as the proximal 2nd metatarsal. Soft tissues: Soft tissue irregularity at the 3rd greater than 2nd toes. Vasculature: Peripheral vascular calcifications. XR/XR foot RT min 3V* [id number] IMPRESSION: 1. Prior great toe amputation with mild interval medial 1st metatarsal head collapse in the setting of lucency and erosion suspected to be on the basis of osteomyelitis. 2. Interval mildly displaced medial 2nd toe proximal phalanx base fragment may represent fracture. 3. Interval significant subluxation at the 2nd toe PIP joint. 4. Soft tissue irregularity and loss of the 3rd toe distal phalanx with erosion of the distal middle phalanx suspicious for infection with osteomyelitis.
[2022-12-30 17:05] LABS: Basophils # 0.1 10^3/uL (0.0-0.1); Basophils % 0.7 %; Eosinophils # 0.3 10^3/uL (0.0-0.8); Eosinophils % 3.4 %; Hematocrit 37.3 % (42.0-52.0); Hemoglobin 12.7 g/dL (11.7-16.6); Lymphocytes # 2.2 10^3/uL (0.8-4.8); Lymphocytes % 28.6 %; Mean Corpuscular Hemoglobin 31.8 pg (28.0-34.0); Mean Corpuscular Volume 93.3 fl (80-94); Mean Platelet Volume 9.5 fL (7.4-10.4); Monocytes # 0.7 10^3/uL (0.2-0.9); Monocytes % 9.4 %; Neutrophils # 4.33 10^3/uL (1.8-7.7); Neutrophils % 57.5 %; Nucleated Red Blood Cells % 0 %; Platelet Count 237 10^3/cmm (130-400); White Blood Count 7.5 10^3/uL (4.0-10.0)
[2022-12-30 17:24] LABS: Anion Gap 12.9 (5-19); Blood Urea Nitrogen 7 mg/dL (8-23); C Reactive Protein 3.8 mg/L (0.0-4.9); Calcium 9.1 mg/dL (8.5-10.5); Carbon Dioxide 26 mmol/L (22-29); Chloride 103 mmol/L (98-107); Glomerular Filtration Rate 96.1 mL/min (90-130); Glucose 103 mg/dL (65-115); Osmolality Calculated 284 mOsm/kg (285-295); Potassium 3.9 mmol/L (3.5-5.1); Sodium 138 mmol/L (136-145)
[2022-12-30 17:56] LABS: Erythrocyte Sedimentation Rate 16 mm/hr (0-10)
== END 2022-12-30 16:13 | disposition home or self-care (01) ==
LOC: LAB 16:15
PROVIDERS: PCP Emergency Medicine Emergency Medical Services; Visit Provider Thoracic Surgery (Cardiothoracic Vascular Surgery)
DX: S81.801A Unspecified open wound, right lower leg, initial encounter (principal); S93.104A Unspecified dislocation of right toe(s), initial encounter; S93.134A Subluxation of interphalangeal joint of right lesser toe(s), initial encounter; X58.XXXA Exposure to other specified factors, initial encounter; Z89.411 Acquired absence of right great toe; R93.6 Abnormal findings on diagnostic imaging of limbs
CPT/HCPCS: 36415; 73630; 80048; 85025; 85651; 86140

== ENCOUNTER 2023-01-06 16:01 | Outpatient (CLI) | payer OTHER, SELFPAY ==
--- NOTE | 2023-01-06 16:15 | CTR_ITS ---
PROCEDURE INFORMATION: Exam: CTA Abdominal Aorta and Bilateral Lower Extremities (Run-off) With Contrast Exam date and time: 01/06/2023 4:27 PM Age: 67 years old Clinical indication: Condition or disease; Peripheral vascular disease; Prior surgery; Surgery date: 6+ months; Surgery type: Femoropopliteal bypass graft; Additional info: Pad, occlusion of femoropopliteal bypass graft TECHNIQUE: Imaging protocol: Computed tomographic angiography of the of the abdominal aorta, pelvis and bilateral lower extremities with contrast. 3D rendering (Not supervised by radiologist): MIP and/or 3D reconstructed images were created by the technologist. Radiation optimization: All CT scans at this facility use at least one of these dose optimization techniques: automated exposure control; mA and/or kV adjustment per patient size (includes targeted exams where dose is matched to clinical indication); or iterative reconstruction. Contrast material: OMNI 350; Contrast volume: 95 ml; Contrast route: INTRAVENOUS (IV); REPORTING DATA: Count of CT and Cardiac NM exams in prior 12 months: This patient has received 5 known CTs and 0 known cardiac nuclear medicine studies in the 12 months prior to the current study. COMPARISON: CT angio abd aorta runof [id number] 12/12/2019 10:01 AM RADIATION DOSE METRICS: Total DLP (mGy-cm): 1315.4 FINDINGS: Aorta: Diffuse atherosclerotic changes of the lower thoracic and upper abdominal aorta. Moderate stenosis mid abdominal aorta just above the origin of aortic stent graft unchanged. Patent aortobifemoral stent graft. [place] iliac vessels are collapsed and diffusely calcified. Celiac trunk and mesenteric arteries: Common origin of the celiac trunk and SMA there remains patent. Renal arteries: Tight stenosis origin left renal artery. Calcification with mild stenosis proximal segment right renal artery. Right iliac arteries: Patent aortoiliac stent Right femoral/popliteal arteries: Right profundus femoris is patent. Right SFA is occluded with reconstitution of a disease distal SFA at the adductor canal. Multiple stenosis of the proximal mid popliteal artery. Right infrapopliteal arteries: Right tibial-peroneal trunk is narrowed but patent. Two vessel runoff consisting of posterior tibial and peroneal artery with patent plantar arch. Left iliac arteries: Patent aortoiliac stent. Left femoral/popliteal arteries: Left profundus femoris is patent. Left SFA is occluded at its origin with reconstitution at the adductor canal. Left popliteal artery is patent. Left infrapopliteal arteries: Left tibial-peroneal trunk is narrowed but patent. Two vessel runoff distally consisting of posterior tibial and anterior tibial artery with patent dorsalis pedis and diminutive plantar arch. Other arteries: Occluded right femoropopliteal bypass graft. Lungs: Mild bronchiectasis and chronic interstitial lung changes at the lung bases, stable. Liver: No mass. Gallbladder and bile ducts: Unremarkable. No calcified stones. No ductal dilation. Pancreas: Unremarkable. Main pancreatic duct is not significantly dilated. Spleen: Normal. No splenomegaly. Adrenal glands: Normal. No mass. Kidneys and ureters: Few small cortical cysts both kidneys otherwise kidneys are unremarkable. Stomach and bowel: Prominent mucosal hyperenhancement throughout the stomach as well as the duodenal sweep that should be correlated for possible gastroenteritis. Large amount of stool throughout the colon that may reflect some degree of constipation. There is moderate circumferential rectal wall thickening that has developed involving the lower rectum concerning for possible neoplastic process that needs further evaluation. Appendix: No evidence of appendicitis. Urinary bladder: Mild diffuse bladder wall thickening developed from previous exam. Reproductive: Prostate gland is mildly enlarged. Intraperitoneal space: Unremarkable. No free air. No significant fluid collection. Lymph nodes: No lymphadenopathy. Bones/joints: Changes both femoral heads consistent with AVN more pronounced on the right with there is some flattening and deformity of the right femoral head unchanged.. Soft tissues: Unremarkable. CT/CT angio abd aorta runof [id number] IMPRESSION: 1. Atherosclerotic changes of the abdominal aorta with moderate stenosis mid abdominal aorta just above patent aortoiliac stent, unchanged. 2. Chronically occluded right femoropopliteal bypass graft. 3. Occluded right SFA with reconstitution at the adductor canal. Disease right popliteal artery. Two vessel runoff distally. 4. Occluded left SFA at its origin with reconstitution at the adductor canal. Patent left popliteal artery. Two vessel runoff distally. 5. Masslike circumferential thickening of the rectal wall concerning for possible neoplastic process for which further evaluation recommended. 6. Unexplained mucosal hyperenhancement involving the stomach and duodenal sweep. Please correlate for gastroduodenitis. 7. Chronic changes both femoral heads consistent with AVN.
[2023-01-06] MEDS: iohexol 350 mg/mL 500 mL Btl (per mL) IV (16:38)
== END 2023-01-06 16:02 | disposition home or self-care (01) ==
LOC: RAD 16:04
PROVIDERS: PCP Emergency Medicine Emergency Medical Services; Visit Provider Surgery Vascular Surgery
DX: I73.9 Peripheral vascular disease, unspecified (principal); T82.858A Stenosis of other vascular prosthetic devices, implants and grafts, initial encounter; Y71.2 Prosthetic and other implants, materials and accessory cardiovascular devices associated with adverse incidents; I70.0 Atherosclerosis of aorta; I70.92 Chronic total occlusion of artery of the extremities; Z95.828 Presence of other vascular implants and grafts; R93.6 Abnormal findings on diagnostic imaging of limbs
CPT/HCPCS: 75635; Q9967

== ENCOUNTER → 2023-01-07 13:10 | Outpatient (BNVA) | payer OTHER, SELFPAY | PROVIDERS: PCP Emergency Medicine Emergency Medical Services; Visit Provider Thoracic Surgery (Cardiothoracic Vascular Surgery) | DX: L95.9 Vasculitis limited to the skin, unspecified (principal); L97.512 Non-pressure chronic ulcer of other part of right foot with fat layer exposed | CPT/HCPCS: 11042; A6219 ==

== ENCOUNTER → 2023-01-14 14:43 | Outpatient (BNVA) | payer OTHER, SELFPAY | PROVIDERS: PCP Emergency Medicine Emergency Medical Services; Visit Provider Thoracic Surgery (Cardiothoracic Vascular Surgery) | DX: L95.9 Vasculitis limited to the skin, unspecified (principal); I96 Gangrene, not elsewhere classified; L97.512 Non-pressure chronic ulcer of other part of right foot with fat layer exposed | CPT/HCPCS: 97597 ==

== ENCOUNTER 2023-03-17 19:59 | Inpatient (IN) | payer OTHER, SELFPAY ==
[2023-03-17 20:01] VITALS: BP 95/54; PULSE 79; RESP 28; TEMP 35.9; O2SAT 94; BMI 21.6
--- NOTE | 2023-03-17 20:02 | ECG_ITS ---
[facility] Test Date: 2023-03-17 Pat Name: Parminder Obrien Department: Room: 260 Gender: Male Blow [employer] Operator: : [id number] Requested By: Ayaka Reyna Order Number: [id number] Violeta MD: Scooby Barkley M.D. Measurements Intervals [place] Rate: 79 P: 70 TX: 167 QRS: 0 QRSD: 103 T: 161 QT: 410 QTc: 473 Interpretive Statements SINUS RHYTHM LEFT ATRIAL ENLARGEMENT [-0.15mV P-WAVE IN V1/V2] ST DEVIATION AND MODERATE T-WAVE ABNORMALITY, CONSIDER LATERAL ISCHEMIA [-0.1+ mV T-WAVE IN I/aVL/V5/V6] Compared to ECG 02/22/2020 10:35:20 T-wave abnormality now present Possible ischemia now present Sinus bradycardia no longer present Left ventricular hypertrophy no longer present ST (T wave) deviation no longer present Electronically Signed On 03-18-2023 12:31:56 CDT by Scooby Barkley M.D. [id number]
[2023-03-17 20:13] VITALS: BP 95/54; PULSE 68; O2SAT 94
--- NOTE | 2023-03-17 20:24 | XRR_ITS ---
PROCEDURE INFORMATION: Exam: XR Chest Exam date and time: 03/17/2023 8:36 PM Age: 67 years old Clinical indication: Shortness of breath; Additional info: SOB TECHNIQUE: Imaging protocol: Radiologic exam of the chest. Views: 1 view. COMPARISON: CR XR chest 2V* [id number] 03/10/2022 12:39 PM FINDINGS: Lungs: Mild nonspecific ground-glass density throughout both lungs, which may represent mild pulmonary edema versus infection. Pleural spaces: No pleural effusion. No pneumothorax. Heart/Mediastinum: No cardiomegaly. Vasculature: The thoracic aorta is atherosclerotic. Bones/joints: Median sternotomy noted. XR/XR chest 1V portable [id number] IMPRESSION: Mild nonspecific ground-glass density throughout both lungs, which may represent mild pulmonary edema versus infection. This is new when compared to 03/10/2022.
[2023-03-17 20:33] LABS: Basophils % 0.2 %; Eosinophils % 0.1 %; Hematocrit 42.6 % (37-53); Lymphocytes # 0.6 10^3/uL (0.8-4.8); Lymphocytes % 5.2 %; Mean Corpuscular HGB Conc 32.4 g/dL (30-55); Mean Corpuscular Hemoglobin 30.4 pg (27-33); Mean Corpuscular Volume 93.8 fl (82-101); Mean Platelet Volume 9.8 fL (7.4-10.4); Monocytes # 0.7 10^3/uL (0.2-0.9); Neutrophils # 9.66 10^3/uL (1.8-7.7); Neutrophils % 88.3 %; Nucleated Red Blood Cells % 0 %; Platelet Count 225 10^3/cmm (157-399); Red Blood Count 4.54 10^6/uL (3.85-5.65); White Blood Count 10.94 10^3/uL (3.29-11.43)
--- NOTE | 2023-03-17 20:41 | ED_ITS ---
HPI - SOB/Dyspnea General: Chief Complaint: Shortness of Breath/Dyspnea Stated Complaint: Gi Bleed Time Seen by Provider: 03/17/23 20:11 Source: patient and EMS Mode of arrival: EMS Limitations: no limitations History of Present Illness: HPI Narrative: 67-year-old male who was found by a friend I believe that is what EMS states he had been found down he has had an unknown downtime he had a history of GI bleeds in the past EMS states there was vomitus that was bloody as coffee-ground in the floor he is likely had aspirated as well as he had shortness of breath requiring nonrebreather. Patient here is answering all my questions appropriately he does not have any pain. He denied being intubated I informed him as his breathing status he likely need to be intubated he refused I then asked him if he had want any type of treatment and he stated no. I then had a long discussion with him and explained to him that he likely had a GI bleed and that if he received no treatment there is a good chance that he would . He understands that this and states that he does not want anything done and wants to be comfort care. 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 Hypertension Peripheral Vascular Disease Surgical History History of heart artery stent Hx of CABG S/P femoral-femoral bypass surgery Family History Denies family history of CAD (coronary artery disease) Social History Smoking and tobacco/nicotine status: current every day tobacco/nicotine user Alcohol intake: former Substance/Drug Use: former Physical Exam Const: COMMON NORMALS: patient oriented x3 GENERAL APPEARANCE: ill appearing and frail appearing HENMT: COMMON NORMALS: normocephalic and atraumatic HEAD & SCALP: normocephalic and atraumatic OTHER: Dried coffee-ground emesis noted in his mouth Eye: COMMON NORMALS: Equal, round and reactive pupils present and EOMs intact bilaterally PUPIL: Yes Equal, round and reactive pupils present Neck/C-Spine: COMMON NORMALS: full ROM and supple Chest: COMMONS NORMALS: normal inspection of the chest and normal palpation of entire chest wall Resp: EFFORT & INSPECTION: Yes tachypneic and Yes respiratory distress AUSCULTATION: crackles and rales Cardio: COMMON NORMALS: regular rate, regular rhythm and No murmurs present (Cardio) RATE: regular rate RHYTHM: regular rhythm GI: COMMON NORMALS: Normal to inspection, nondistended, normoactive bowel sounds present, Soft to palpation, non-tender and no masses PALPATION: Yes Soft to palpation Extremity: COMMON NORMALS: full ROM Neuro: COMMON NORMALS: patient oriented x3, moves all extremities and no focal motor deficits Psych: COMMON NORMALS: mental status grossly normal, Normal thought process present and cooperative THOUGHT PROCESS: Normal thought process present Skin: COMMON NORMALS: no rashes or lesions noted and no wounds GENERAL SKIN EXAM: no rashes or lesions noted Course Vital Signs: Vital signs: Vital Signs Temperature 96.7 F L 03/17/23 20:01 Pulse Rate 79 03/17/23 20:01 Respiratory Rate 28 H 03/17/23 20:01 Blood Pressure 95/54 03/17/23 20:01 Pulse Oximetry 94 03/17/23 20:01 Oxygen Delivery Me thod Non-Rebreather 03/17/23 20:01 MDM - SOB/Dyspnea Medical Decision Making Patient presents here with respiratory failure likely an aspiration pneumonia also rhabdomyolysis with a lactic acidosis. I did talk to patient at length abo ut treatment and he is was adamant that he does not want any treatment and he wants to be comfort care at this time. He does have medical decision-making capacity he answered all questions appropriately Medical Records I reviewed the patient's medical records. Lab Data I reviewed the patient's lab results. 03/17/23 20:00 03/17/23 20:00 Labs/Radiology: Laboratory Results WBC 10.94 10^3/uL (3.29-11.43) 03/17/23 20:00 RBC 4.54 10^6/uL (3.85-5.65) 03/17/23 20:00 Hgb 13.80 g/dL (11.27-16.99) 03/17/23 20:00 Hct 42.6 % (37-53) 03/17/23 20:00 MCV 93.8 fl (82-101) 03/17/23 20:00 MCH 30.4 pg (27-33) 03/17/23 20:00 MCHC 32.4 g/dL (30-55) 03/17/23 20:00 RDW 18.0 % (12.1-15.1) H 03/17/23 20:00 Plt Count 225 10^3/cmm (157-399) 03/17/23 20:00 MPV 9.8 fL (7.4-10.4) 03/17/23 20:00 Neut % (Auto) 88.3 % 03/17/23 20:00 Lymph % (Auto) 5.2 % 03/17/23 20:00 [place] % (Auto) 6.0 % 03/17/23 20:00 Eos % (Auto) 0.1 % 03/17/23 20:00 Baso % (Auto) 0.2 % 03/17/23 20:00 Neut # (Auto) 9.66 10^3/uL (1.8-7.7) H 03/17/23 20:00 Lymph # (Auto) 0.6 10^3/uL (0.8-4.8) L 03/17/23 20:00 [place] # (Auto) 0.7 10^3/uL (0.2-0.9) 03/17/23 20:00 Eos # (Auto) 0.0 10^3/uL (0.0-0.8) 03/17/23 20:00 Baso # (Auto) 0.0 10^3/uL (0.0-0.1) 03/17/23 20:00 Nucleated RBC % (auto) 0 % 03/17/23 20:00 Nucleated RBCs # 0.0 /100WBC 03/17/23 20:00 PT 18.80 SECONDS (12.1-14.9) H 03/17/23 20:00 INR 1.51 (0.8-1.2) H 03/17/23 20:00 Sodium 140 mmol/L (136-145) 03/17/23 20:00 Potassium 4.1 mmol/L (3.5-5.1) 03/17/23 20:00 Chloride 96 mmol/L (98-107) L 03/17/23 20:00 Carbon Dioxide 11 mmol/L (22-29) L 03/17/23 20:00 Anion Gap 37.1 (5-19) H 03/17/23 20:00 BUN 40 mg/dL (8-23) H 03/17/23 20:00 Creatinine 1.9 mg/dL (0.7-1.2) H 03/17/23 20:00 GFR Calculation 35.4 mL/min (90-130) L 03/17/23 20:00 Glucose 121 mg/dL (65-115) H 03/17/23 20:00 Calculated Osmolality 301 mOsm/kg (285-295) H 03/17/23 20:00 Lactic Acid 20.5 mmol/L (0.5-2.2) H* 03/17/23 20:00 Calcium 9.6 mg/dL (8.5-10.5) 03/17/23 20:00 Total Bilirubin 0.6 mg/dL (0.15-1.2) 03/17/23 20:00 AST 32 U/L (0-40) 03/17/23 20:00 ALT 14 U/L (0-41) 03/17/23 20:00 Alkaline Phosphatase 174 U/L (40-130) H 03/17/23 20:00 Creatine Kinase 754 U/L (39-308) H* 03/17/23 20:00 Total Protein 6.4 g/dL (6.6-8.7) L 03/17/23 20:00 Albumin 3.6 g/dL (3.5-5.2) 03/17/23 20:00 Globulin 2.8 g/dL (1.3-4.6) 03/17/23 20:00 Blood Type O Positive 03/17/23 20:00 Rho(D) Type Positive 03/17/23 20:00 All radiology interpretation(s) finalized by discharge Discharge Plan Discharge Patient Disposition: Admitted As Inpatient Clinical Impression: Respiratory failure, Aspiration pneumonia, Acidosis, lactic Condition: Stable Prescriptions: No Action atenolol 50 mg tablet 50 mg PO DAILY atorvastatin 40 mg tablet 40 mg PO DAILY cholecalciferol (vitamin D3) 50 mcg (2,000 unit) tablet,chewable 50 mcg PO DAILY gabapentin 800 mg tablet 800 mg PO TID tramadol 50 mg tablet 50 mg PO Q6H PRN (Reason: Pain) 5 Days Qty: 20 0RF Rx Instructions: Take one tablet by mouth every 6 hours as needed for pain hydrocodone-acetaminophen 5-325 mg tablet 1 tab PO Q8H PRN (Reason: pain) 7 Days Qty: 20 0RF psyllium husk [Daily Fiber] 0.52 gram capsule 0.52 g PO DAILY finasteride 5 mg tablet 5 mg PO DAILY pentoxifylline 400 mg tablet extended release 400 mg PO TID Qty: 90 2RF Rx Instructions: must administer with a meal/food amoxicillin-pot clavulanate 875-125 mg tablet 1 tab PO Q12H 10 Days Qty: 20 0RF Rx Instructions: 1 tablet by mouth every 12 hours until gone tramadol 50 mg tablet 50 mg PO BID PRN (Reason: pain) Qty: 14 0RF (DME) Orthopedic Shoes with Custom Molded Orthotics and Toe Filler See Rx Instructions .Route .MEDSUPPLY Qty: 1 0RF Rx Instructions: As directed [facility] sulfamethoxazole-trimethoprim [Bactrim DS] 800-160 mg tablet 1 tab PO BID Qty: 14 0RF linezolid 600 mg tablet 600 mg PO BID Qty: 28 0RF amlodipine 10 mg Tablet 10 mg PO DAILY Referrals: Nikolay Briggs DO [Primary Care Provider] - Coding Level of Care Code ED [facility] [employer] for Armin Carroll
[2023-03-17 20:43] LABS: INR 1.51 (0.8-1.2)
[2023-03-17 20:50] LABS: Alanine Aminotransferase 14 U/L (0-41); Albumin Level 3.6 g/dL (3.5-5.2); Alkaline Phosphatase 174 U/L (40-130); Anion Gap 37.1 (5-19); Aspartate Amino Transferase 32 U/L (0-40); Blood Urea Nitrogen 40 mg/dL (8-23); Calcium 9.6 mg/dL (8.5-10.5); Carbon Dioxide 11 mmol/L (22-29); Chloride 96 mmol/L (98-107); Globulin 2.8 g/dL (1.3-4.6); Glomerular Filtration Rate 35.4 mL/min (90-130); Glucose 121 mg/dL (65-115); Osmolality Calculated 301 mOsm/kg (285-295); Potassium 4.1 mmol/L (3.5-5.1); Sodium 140 mmol/L (136-145); Total Bilirubin 0.6 mg/dL (0.15-1.2); Total Protein 6.4 g/dL (6.6-8.7)
[2023-03-17] MEDS: ondansetron 2 mg/ML SDV 2 mL 4 MG IVP (20:50)
[2023-03-17 20:52] LABS: Creatine Phosphokinase 754 U/L (39-308)
[2023-03-17] MEDS: morphine 4 mg/mL SDV 1 mL IVP (20:52)
[2023-03-17 21:02] LABS: Lactic Sepsis W/Reflex 20.5 mmol/L (0.5-2.2)
--- NOTE | 2023-03-17 21:02 | PC.NURSE ---
Caregiver arrives to ER and states that the patient recently had femoral bypass and trouble and was placed on bipap. I have explained clearly that the patient has expressed his desire to be DNR and would like to be on comfort care. Caregiver states that EMS was wrong , that the patient has no history of GI bleed.
[2023-03-17 21:08] LABS: Slide Review Slide Review Perform
[2023-03-17 21:39] VITALS: BP 95/68; PULSE 71; RESP 26; O2SAT 86
[2023-03-17 22:13] LABS: Reflex Lactate Order REFLEX LACTIC ORDERD
[2023-03-17] MEDS: pantoprazole 40 mg SDV IVP (22:21)
--- NOTE | 2023-03-17 23:25 | P.HP_ITS ---
Providers/Chief Complaint Admitting Physician: Lawrence Muniz MD Primary Care Provider: Nikolay Briggs DO Chief Complaint: Gi Bleed History of Present Illness Parminder Obrien is a 67 year old male with a past medical history of coronary artery disease, cardiomyopathy last known EF around 35%, severe peripheral artery disease, history of prior strokes, intraparenchymal brain bleed 2019, lower extremity ulceration who presented to the emergency room last night after being found in his home for an unknown duration of time. When EMS arrived patient was covered with vomiting and coffee-ground emesis on the floor. He appeared to have aspirated as well and he was extremely short of breath requiring a nonrebreather mask to maintain his oxygen saturation. He was in respiratory distress when he arrived, lactate was noted to be at 20 and the patient was recommended intubation to protect his airway, treatment with IV antibiotics, IV fluids for aspiration pneumonia, further evaluation of GI sources of bleeding, possible ischemia. However patient declined all these in terventions. He had an extensive discussion with the ER physician regarding the same. He was alert awake and oriented and stated that he was tired of being chronically ill and made the decision to proceed with comfort care. He refused any further investigations such as CAT scans, respiratory support apart from supplemental oxygen. Says he just wants to be comfortable. Review of Systems General: Reports: 10 or more systems reviewed and unremarkable except in HPI and below Const: Denies: fever(s), chills or body aches Eyes: Denies: change in vision, blurry vision or photophobia ENMT: Reports: hoarseness; Denies: throat pain, enlarged tonsils, odynophagia or nasal congestion Card: Denies: chest pain, palpitations, irregular heart rhythm, edema, swelling of feet/ankles, lightheadedness, pre-syncope, dyspnea on exertion or orthopnea Resp: Denies: dyspnea, productive cough, non-productive cough, wheezing, stridor, pain on inspiration, change in phlegm color, hemoptysis or chest congestion GI: Denies: abdominal pain, nausea, vomiting, hematemesis, coffee ground emesis, dysphagia, heartburn, diarrhea, constipation, GI cramping, change in stool character, hematochezia or melena : Denies: flank pain, dysuria, urinary frequency, urinary urgency, urinary hesitancy or hematuria Musc: Denies: neck pain, back pain, extremity pain, joint swelling, joint warmth or deformity Neuro: Denies: headache(s), numbness in extremities, weakness in extremities, sensory changes, difficulty walking, frequent falls, dizziness, vertigo, behavioral changes, Slurred speech present or seizure-like activity Psych: Denies: anxiety, depression, suicidal ideation or homicidal ideation Endo: Denies: polyuria, polydipsia, tired all the time, cold intolerance or hot flashes Spenser/Lymph: Denies: easy bruising or easy bleeding Medications/Allergies Home Medications Medication Instructions Recorded Confirmed Last Taken Type atenolol 50 mg tablet 50 mg PO DAILY 10/04/19 12/14/22 04/22/22 History atorvastatin 40 mg tablet 40 mg PO DAILY 10/04/19 12/14/22 04/21/22 History cholecalciferol (vitamin D3) 50 50 mcg PO DAILY 10/04/19 12/14/22 04/21/22 History mcg (2,000 unit) chewable tablet gabapentin 800 mg tablet 800 mg PO TID 10/04/19 12/14/22 04/22/22 History amlodipine 10 mg tablet 10 mg PO DAILY 02/25/20 12/14/22 04/22/22 History finasteride 5 mg tablet 5 mg PO DAILY 03/10/22 12/14/22 04/21/22 History psyllium husk 0.52 gram capsule 0.52 g PO DAILY 03/10/22 12/14/22 04/21/22 History (Daily Fiber) tramadol 50 mg tablet 50 mg PO Q6H PRN Pain 5 days #20 05/31/22 12/14/22 Unknown Rx tabs orthopedic shoes with custom heat #1 ea 06/03/22 12/14/22 Unknown Rx molded inserts and toe filler pentoxifylline 400 mg 400 mg PO TID #90 tabs 07/12/22 12/14/22 Unknown Rx tablet,extended release sulfamethoxazole 800 1 tab PO BID #14 tabs 08/02/22 12/14/22 Unknown Rx mg-trimethoprim 160 mg tablet (Bactrim DS) amoxicillin 875 mg-potassium 1 tab PO Q12H Soft Tissue Skin 12/14/22 12/14/22 Unknown Rx clavulanate 125 mg tablet Infection 10 days #20 tabs hydrocodone 5 mg-acetaminophen 325 1 tab PO Q8H PRN pain 7 days #20 12/24/22 12/24/22 Unknown Rx mg tablet tabs tramadol 50 mg tablet 50 mg PO BID PRN pain #14 tabs 12/31/22 12/31/22 Unknown Rx linezolid 600 mg tablet 600 mg PO BID #28 tabs 01/12/23 Unknown Rx Allergies Allergy/AdvReac Type Severity Reaction Status Date / Time No Known Allergies Allergy Verified 12/14/22 13:13 PFSH Acute PFSH: Medical History Bilateral carotid artery disease CVA (cerebral vascular accident) 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 Hypertension Peripheral Vascular Disease Surgical History History of heart artery stent Hx of CABG S/P femoral-femoral bypass surgery Family History Denies family history of CAD (coronary artery disease) Social History Smoking and tobacco/nicotine status: current every day tobacco/nicotine user Alcohol intake: former Substance/Drug Use: former Vitals/I&O/Wt Last Vital Signs Temp 96.7 F L 03/17/23 20:01 Pulse 71 03/17/23 21:39 Resp 26 H 03/17/23 21:39 BP 95/68 03/17/23 21:39 Pulse Ox 86 L 03/17/23 21:39 O2 Del Method Nasal Cannula 03/17/23 22:30 O2 Flow Rate 4 03/17/23 21:39 Weight last 48 hrs Weight 58.967 kg Physical Exam Narrative: General: No acute distress, AO x3 HEENT: PERRLA, pupils bilaterally equal and reactive, pallors not present Detailed examination not performed to allow for patient's comfort. Data 03/17/23 20:00 03/17/23 20:00 Other Labs: Radiology Impressions Chest X-Ray 03/17/23 20:24 IMPRESSION: Mild nonspecific ground-glass density throughout both lungs, which may represent mild pulmonary edema versus infection. This is new when compared to 03/10/2022. Laboratory Results WBC 10.94 10^3/uL (3.29-11.43) 03/17/23 20:00 RBC 4.54 10^6/uL (3.85-5.65) 03/17/23 20:00 Hgb 13.80 g/dL (11.27-16.99) 03/17/23 20:00 Hct 42.6 % (37-53) 03/17/23 20:00 MCV 93.8 fl (82-101) 03/17/23 20:00 MCH 30.4 pg (27-33) 03/17/23 20:00 MCHC 32.4 g/dL (30-55) 03/17/23 20:00 RDW 18.0 % (12.1-15.1) H 03/17/23 20:00 Plt Count 225 10^3/cmm (157-399) 03/17/23 20:00 MPV 9.8 fL (7.4-10.4) 03/17/23 20:00 Neut % (Auto) 88.3 % 03/17/23 20:00 Lymph % (Auto) 5.2 % 03/17/23 20:00 [place] % (Auto) 6.0 % 03/17/23 20:00 Eos % (Auto) 0.1 % 03/17/23 20:00 Baso % (Auto) 0.2 % 03/17/23 20:00 Neut # (Auto) 9.66 10^3/uL (1.8-7.7) H 03/17/23 20:00 Lymph # (Auto) 0.6 10^3/uL (0.8-4.8) L 03/17/23 20:00 [place] # (Auto) 0.7 10^3/uL (0.2-0.9) 03/17/23 20:00 Eos # (Auto) 0.0 10^3/uL (0.0-0.8) 03/17/23 20:00 Baso # (Auto) 0.0 10^3/uL (0.0-0.1) 03/17/23 20:00 Nucleated RBC % (auto) 0 % 03/17/23 20:00 Nucleated RBCs # 0.0 /100WBC 03/17/23 20:00 PT 18.80 SECONDS (12.1-14.9) H 03/17/23 20:00 INR 1.51 (0.8-1.2) H 03/17/23 20:00 Sodium 140 mmol/L (136-145) 03/17/23 20:00 Potassium 4.1 mmol/L (3.5-5.1) 03/17/23 20:00 Chloride 96 mmol/L (98-107) L 03/17/23 20:00 Carbon Dioxide 11 mmol/L (22-29) L 03/17/23 20:00 Anion Gap 37.1 (5-19) H 03/17/23 20:00 BUN 40 mg/dL (8-23) H 03/17/23 20:00 Creatinine 1.9 mg/dL (0.7-1.2) H 03/17/23 20:00 GFR Calculation 35.4 mL/min (90-130) L 03/17/23 20:00 Glucose 121 mg/dL (65-115) H 03/17/23 20:00 Calculated Osmolality 301 mOsm/kg (285-295) H 03/17/23 20:00 Lactic Acid 20.5 mmol/L (0.5-2.2) H* 03/17/23 20:00 Calcium 9.6 mg/dL (8.5-10.5) 03/17/23 20:00 Total Bilirubin 0.6 mg/dL (0.15-1.2) 03/17/23 20:00 AST 32 U/L (0-40) 03/17/23 20:00 ALT 14 U/L (0-41) 03/17/23 20:00 Alkaline Phosphatase 174 U/L (40-130) H 03/17/23 20:00 Creatine Kinase 754 U/L (39-308) H* 03/17/23 20:00 Total Protein 6.4 g/dL (6.6-8.7) L 03/17/23 20:00 Albumin 3.6 g/dL (3.5-5.2) 03/17/23 20:00 Globulin 2.8 g/dL (1.3-4.6) 03/17/23 20:00 Blood Type O Positive 03/17/23 20:00 Rho(D) Type Positive 03/17/23 20:00 Antibody Screen Negative 03/17/23 20:00 A&P Assessment and plan (1) Respiratory failure: (2) Aspiration pneumonia: (3) Acidosis, lactic: (4) Ischemic ulcer: (5) Need for comfort care: Plan 67-year-old man with history of 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 He appears to have vomited and possibly had GI bleeding at home. On arrival lactate was noted to be at 20.5. Given his history concern for ischemic colitis as potentially contributing. Also has evidence of aspiration pneumonia. Review of CTA from December 2022 showed extensive atherosclerotic changes of the abdominal aorta with moderate stenosis just above a patent aortoiliac stent. There are multiple other chronically occluded vessels including the femoro popliteal, SFA. Also noted on the CT was a masslike circumferential thickening of the rectal wall which was concerning for malignant, not further evaluated. He also had unexplained mucosal hyperenhancement involving the stomach and duodenal sweep, changes nonspecific perhaps gastroduodenitis. Given his elevated lactate vomiting concern for potential abdominal catastrophic event such as perforation or ischemic colitis. Patient declined CAT scan or any further investigations. He had an extensive discussion at the ER physician upon arrival who recommended that patient be intubated for his respiratory distress and undergo further evaluation with multiple scans, however patient states that that he just wants to be made comfortable. He denied intubation denied any further investigations or interventions other than comfort management . Attestations Medical Necessity Statement*: > 2 midnight admission is anticipated for comfort care managment Coding Level of Care Code Acute Code for [facility] Diagnoses Respiratory failure J96.90 Aspiration pneumonia J69.0 Acidosis, lactic E87.20 Ischemic ulcer L98.499 Need for comfort care
--- NOTE | 2023-03-18 03:56 | PC.NURSE ---
TOD: Pt passed at 311 with caregiver, Lani at the bedside. Sister notified by caregiver. home has not been selected so the pt will be taken to the morgue. Physician, Product Marketing Executive and MTS notified.
--- NOTE | 2023-03-18 04:01 | PC.NURSE ---
Patient reading asystole on the telemetry monitoring. Upon entering room patient had no pulse or respirations. Auscultated no apical pulse was heard. Verified by this nurse and Jignesh Gayle RN. Time of was 311. Caregiver present at bedside.
--- NOTE | 2023-03-18 05:27 | PC.NURSE ---
Titoe time 0520.
--- NOTE | 2023-03-18 06:18 | P.DES_ITS ---
Discharge Providers DDS Date of Admission: 03/17/23 21:23 Date Summary Completed: 03/18/23 Attending Provider at Admission: Tila Santos MD Time of : 03:12 Attending Provider at Discharge: Tila Santos MD Primary Care Provider: DO HAYDEN Cano Diagnoses Hospital Diagnoses (1) Respiratory failure: (2) Aspiration pneumonia: (3) Acidosis, lactic: (4) Ischemic ulcer: (5) Need for comfort care: Reason for Visit Reason for Visit Gi Bleed Summary Date and Time of Date of : 03/18/23 Time of : 03:12 Summary Summary: 67-year-old man with history of severe vasculopathy resulting in multiple ischemic ulcers, stroke, coronary artery disease, presented to the hospital on 03/17 after being found down for an unknown duration of time.? He appeared to have vomited and possibly had GI bleeding at home.? On arrival lactate was noted to be at 20.5. Given his history concern for ischemic colitis as potentially contributing.? Also had evidence of aspiration pneumonia. Review of CTA from December 2022 showed extensive atherosclerotic changes of the abdominal aorta with moderate stenosis just above a patent aortoiliac stent.? There are multiple other chronically occluded vessels including the femoropopliteal, SFA.? Also noted on the CT was a masslike circumferential thickening of the rectal wall which was concerning for malignant, not further evaluated.? He also had unexplained mucosal hyperenhancement involving the stomach and duodenal sweep, changes nonspecific.? Given his elevated lactate vomiting concern for potential abdominal catastrophic event such as perforation or ischemic colitis.? Patient declined CAT scan or any further investigations. He had an extensive discussion at the ER physician upon arrival who recommended that patient be intubated for his respiratory distress and undergo further evaluation with multiple scans, however patient stated that that he just wanted to be made comfortable.? He denied intubation denied any further investigations or interventions other than comfort management . He on 03/18/23 at 03:12. Additional Data Family: at bedside Advance directives?: No Discharge Plan Discharge Patient Disposition: Condition: Stable Prescriptions: No Action atenolol 50 mg tablet 50 mg PO DAILY atorvastatin 40 mg tablet 40 mg PO DAILY cholecalciferol (vitamin D3) 50 mcg (2,000 unit) tablet,chewable 50 mcg PO DAILY gabapentin 800 mg tablet 800 mg PO TID tramadol 50 mg tablet 50 mg PO Q6H PRN (Reason: Pain) 5 Days Qty: 20 0RF Rx Instructions: Take one tablet by mouth every 6 hours as needed for pain hydrocodone-acetaminophen 5-325 mg tablet 1 tab PO Q8H PRN (Reason: pain) 7 Days Qty: 20 0RF psyllium husk [Daily Fiber] 0.52 gram capsule 0.52 g PO DAILY finasteride 5 mg tablet 5 mg PO DAILY pentoxifylline 400 mg tablet extended release 400 mg PO TID Qty: 90 2RF Rx Instructions: must administer with a meal/food amoxicillin-pot clavulanate 875-125 mg tablet 1 tab PO Q12H 10 Days Qty: 20 0RF Rx Instructions: 1 tablet by mouth every 12 hours until gone tramadol 50 mg tablet 50 mg PO BID PRN (Reason: pain) Qty: 14 0RF (DME) Orthopedic Shoes with Custom Molded Orthotics and Toe Filler See Rx Instructions .Route .MEDSUPPLY Qty: 1 0RF Rx Instructions: As directed [facility] sulfamethoxazole-trimethoprim [Bactrim DS] 800-160 mg tablet 1 tab PO BID Qty: 14 0RF linezolid 600 mg tablet 600 mg PO BID Qty: 28 0RF amlodipine 10 mg Tablet 10 mg PO DAILY Referrals: Nikolay Briggs DO [Primary Care Provider] - Patient Instructions: Opioid Safety DS Attestations Time Spent in /Discharge Care*: less than 30 min Quality - AMI: AMI present?: No Quality - Stroke: CVA present?: No Symptom Onset Unknown: No Quality - VTE: VTE present?: No Deep Vein Thrombosis/Pulmonary Embolism Present on Admission: No Coding Level of Care Code Acute Code for [facility] Diagnoses Respiratory failure J96.90 Aspiration pneumonia J69.0 Acidosis, lactic E87.20 Ischemic ulcer L98.499 Need for comfort care
--- OUTSIDE RECORDS SUMMARY | 2023-03-18 06:57 | XMS_ITS | Patient Health Record ---
Author Name Unknown Organization [facility] Address [address] [place] [address] Care Team Providers Care Combined Rail Operator Name Role Phone [facility] Nikolay SANCHEZ Primary Care Provider Un available Perico Nickin Unavailable [phone] [place], Milligan Unavailable Unavailable Rubi Valenzuela Unavailable [phone] ALLERGIES Allergen (clinical drug ingredient) Drug/Non Drug Allergy documented on EMR Reaction Allergy Type Onset Date Status No Known Drug Allergy Unknown Drug Allergy Active RESULTS Component Value Reference Range Notes Colonoscopy, Average Risk Sc reening-[id number] Reviewed date:08/02/2022 06:08:00 PM Interpretation: Performing Lab: Notes/Report: EGD, Upper GI Diagnostic-[id number] Reviewed date:08/02/2022 06:04:45 PM Interpretation: Performing Lab: Notes/Report: REASON FOR REFERRAL Reason Constipation, Wt Los s, set up for colon and egd Referring Provider First Name Maria R Powell Referring Provider Last Name [place] Referring Provider Speciality [facility] Referred Organization [facility] Referred Provider Rubi Valenzuela Referred Address [address] [place],[address], Referred Provider Specialty Gastroentero logy Referral Priority Routine MEDICATIONS Medication SIG (Take, Route, Frequency, Duration) Notes Start Date End Date Status Sleep Aid 25 MG 2 tabs Orally Once a day Active Folic Acid 1 MG 1 tablet Orally Once a day Active Melatonin 10 MG as directed Orally Active Finasteride 5 MG 1 tablet Orally Once a day Active CoQ10 100 MG as directed Orally Active amLODIPine Besylate 10 MG 1 tablet Orall y Once a day Active Atorvastatin Calcium 80 MG 1/2 tab Orally Once a day Active Vitamin D3 50 MCG (1999 [place]) 1 capsule Or ally Once a day Active Magnesium 200 MG 1 tablet with a meal Orally Twice a day Active Garlic 100 MG as directed Orally Active Turmeric 500 MG as directed Orally t wice a day Active Fiber - as directed Orally A ctive Gabapentin 800 MG 1 tablet Orally thre e times a day Active Potassium Chloride 20 MEQ 1/2 tab Orally Once a day Active tiZANidine HCl 4 MG 1 tablet as needed O rally Three times a day Active Reglan 10 MG 1 tablet Orally once for 1 days 06/24/2022 Active traMADol HCl 50 MG two tabs Orally twic e a day Active PreserVision AREDS - as directed Orally twice daily Active Atenolol 50 MG 1/2 tab Orally Once a day Active SOCIAL HISTORY Tobacco Use: Social History Observation Description Date Details (start date - stop date) Current Smoker NA - NA Sex Assigned At : Social History Observation Description Sex Assigned At Unknown Tobacco Use/Smoking Question Answer Notes Are you a current smoker Alcohol Screen (Audit-C) Question Answer Notes Did you have a drink containing alcohol in the p ast year? No Points 0 Interpretation Negative PROBLEMS Problem Type ICD Code Onset Dates Problem Status W/U Status Risk SNOMED Code Notes Problem Poor appetite (R63.0) Active confirmed [id number] VITAL SIGNS Heart Rate 57 /min 06/24/2022 Temperature 98.3 degrees Fahrenheit 06/24/2022 Respiratory Rate 14 /min 06/24/2022 Height-cm 162.56 cm 06/24/2022 Oximetry 96 % 06/24/2022 Blood pressure diastolic 50 mm Hg 06/24/2022 Weight-kg 53.43 kg 06/24/2022 Height 64 in 06/24/2022 Blood pressure systolic 142 mm Hg 06/24/2022 Weight 117.8 lbs 06/24/2022 BMI 20.22 kg/m2 06/24/2022 Encounters Encounter Location Date Provider Diagnosis [facility] [address] [address] 06/17/2022 Rubi Valenzuela [facility] [address] [place] [address] 06/24/2022 Rubi Valenzuela Preprocedural examination Z01.818 ; Weight loss R63.4 ; Poor appetite R63.0 and Screening for colon cancer Z12.11 [facility] [address] [place] [address] 07/30/2022 Denise Nick ASSESSMENTS Encounter Date Diagnosis Assessment Notes Treatment Notes Treatment Clinical Notes 06/24/2022 Weight loss (ICD-10 - R63.4) Discussion and Plan: The patient has the prerequisite risk factors for the development of esophageal cancer. I have discussed the options of diagnostic testing with their advantages and disadvantages. Surveillance EGD with possible dilation and biopsy is recommended. Risk and Benefits: The benefits, risks, and complications were presented tot he patient. The patient is aware of the risk of bleeding, perforation, and anesthetic complications related to the procedure. Ample time was given to answer all questions. Instructions given for the prep. 06/24/2022 Preprocedural examination (ICD-10 - Z01.818) 06/24/2022 Poor appetite (ICD-10 - R63.0) 06/24/2022 Screening for colon cancer (ICD-10 - Z12.11) The patient has a prerequisite risk factors for development of colon cancer. I have discussed the options of screening testing with their advantages and disadvantages. I have recommended screening colonoscopy with possible biopsy and polypectomy. Risks and Benefits: The benefits, risks, and complications were presented to pt. The patient is aware of the risk of bleeding, perforation, infection, and anesthetic complications related to colonoscopy. The patient is aware that although colonoscopy is an accurate procedure, it does have some limitations. As a result, some lesions, including cancer may be missed by colonoscopy. Ample time was given to answer all questions. Instructions given for the bowel prep. Follow up will be determined after the colonoscopy. Refer back to PCP. 06/24/2022 Other Colonoscopy: Before Your Procedure material was printed, Learning About Foods That Are Good Sources of Fiber material was printed, Upper GI Endoscopy: Before Your Procedure material was printed PLAN OF TREATMENT No Information Insurance Providers Payer Name Payer Address Payer Phone Subscriber Number Group Number Insured Name Patient Relationship to Insured Coverage Start Date Coverage End Date [employer] [address] JAY SANCHEZ [phone] [id number] Parminder Obrien Self - patient is the insured MEDICAL (GENERAL) HISTORY Medical History History ICD Code measles chicken pox heart disease arthritis hypertension hemorrhoids stroke coronary artery disease hyperlipidemia heart attack sleep apnea Surgical History Surgery Date(Month/Year) great toe amputation aortic arch bypass and anoth er bypass or hernia repair- patient is unsure Hospitalization History Reason Date(Month/Year) head trauma 2019 heart attack 2010
--- NOTE | 2023-03-18 09:30 | PC.CHAP ---
Pastoral Care Encounter/Spiritual Assessment Type of Contact [] Declined surveyor helper visit [] Patient/Family/Request visit [] Outpatient visit [] Follow-up visit [] Physician referral [] Code/Alert [] Routine visit [] Staff referral [] Actively dying [] Patient sleeping [] Family support [] [x] Out of room [] Palliative care [] [] Receiving care in room [] Pre-surgical visit [] Trauma [] Long length of stay [] ICU visit [] Other: Relational/Emotional Strength [] Patient feels connected with others/family/visitors/staff [] Distress [] Loneliness/isolation [] Abandonment Spirituality of Patient [] Person of Carrie [] Attends Rastafari of their Carrie [] Believes in Prayer [] Reads Bible or Sabianist materials [] There are Spiritual issues to be addressed Insulator Cutter And Former Interventions [] Prayer [] Active listening [] Non-anxious presence [] Spiritual/emotional support [] Crisis/trauma care [] Spiritual counseling [] Bereavement support [] Provided bereavement packet [] Provided Bible/devotional materials [] Provided toy/stuffed animal, coloring book to patient or family member [] Provided Communion [] Anointing/[place] [] Salvation [] Completed spiritual assessment [] Other: Impact on Illness or Injury [] Angry [] Fearful [] Anxious [] Often cries [] Exhaustion [] Unable to work [] Unable to attend baptist [] Unable to walk/stand [] Unable to read [] Unable to drive [] Unable to eat/drink [] Unable to sleep [] Unable to be with family [] Patient intubated [] Other: Summary Time spent with patient
== END 2023-03-18 05:20 | disposition expired | DRG 177 ==
LOC: ER 21:16 → MEDSURG 21:34
PROVIDERS: Admitting Provider Student in an Organized Health Care Education/Training Program; Emergency Provider Emergency Medicine; PCP Emergency Medicine Emergency Medical Services; Visit Provider Student in an Organized Health Care Education/Training Program
DX: J69.0 Pneumonitis due to inhalation of food and vomit (principal); J96.90 Respiratory failure, unspecified, unspecified whether with hypoxia or hypercapnia; M62.82 Rhabdomyolysis; E87.20 Acidosis, unspecified; I10 Essential (primary) hypertension; I73.9 Peripheral vascular disease, unspecified; Z86.73 Personal history of transient ischemic attack (TIA), and cerebral infarction without residual deficits; F17.210 Nicotine dependence, cigarettes, uncomplicated; I25.10 Atherosclerotic heart disease of native coronary artery without angina pectoris; Z95.1 Presence of aortocoronary bypass graft; Z95.5 Presence of coronary angioplasty implant and graft; Z51.5 Encounter for palliative care; Z53.29 Procedure and treatment not carried out because of patient's decision for other reasons
CPT/HCPCS: 71045; 80053; 82550; 83605; 85025; 85610; 86850; 86900; 93005; 96374; 96375; 99285; C9113; J2270; J2405